=== PATIENT | female | born 1955 | race Caucasian/White ===

== ENCOUNTER → 2016-07-24 | Outpatient (CLI) | payer MEDICARE, OTHER ==
--- NOTE | 2016-07-24 12:48 | XR ---
EXAMINATION TYPE: XR chest 2V DATE OF EXAM: 07/24/2016 11:49 AM COMPARISON: 11/16/2013 HISTORY: Cough and congestion FINDINGS: The lungs are clear and there is no pneumothorax, pleural effusion, or focal pneumonia. IMPRESSION: 1. No acute process.
== END | disposition home or self-care (01) ==
LOC: RADXRMAIN 11:34
PROVIDERS: ATTEND Family Medicine
DX: R07.81 Pleurodynia (principal)
CPT/HCPCS: 71020

== ENCOUNTER 2016-08-14 07:37 | Day surgery (SDC) | payer MEDICARE, OTHER ==
[2016-08-09 14:31] VITALS: BMI 21.0
[~2016-08-14 07:37] MED LIST: LACTATED RINGERS 1,000 ML IV SCH
[2016-08-14 08:52] VITALS: TEMP 97.8
[2016-08-14] MEDS ORDERED: LIDOCAINE 1% 20 ML VIAL (10MG/ML) FOR IV START INTRADERMA ONE (08:52)
[2016-08-14] MEDS ORDERED: LACTATED RINGERS 1,000 ML IV ONE (08:52)
[2016-08-14] MEDS ORDERED: BUPIVACAINE (PF) 0.5% 30 ML VIAL ONE (09:28)
[2016-08-14] MEDS ORDERED: MIDAZOLAM 2 MG/2 ML VIAL ONE (09:28)
[2016-08-14] MEDS ORDERED: fentaNYL (PF) 50 MCG/ML 2 ML AMP ONE (09:28)
--- NOTE | 2016-08-14 10:23 | P.PCN ---
Date of Procedure: 08/14/16 Procedure(s) Performed: PREOPERATIVE DIAGNOSIS: 1-Lumbosacral spondylosis with facet arthropathy without myelopathy. 2- sacroiliit. 3-lumbar degenerative disease post operative Diagnosis: . Same as preoperative diagnoses. PROCEDURES: 1- Right radiofrequency thermocoagulation/ablation of the L5 dorsal ramus. 2- Right multi-site radiofrequency thermocoagulation/ablation of the S1, S2, lateral branchs. The procedure was performed using fluoroscopic guidance during needle placement to assure proper position and maximize safety . ANESTHESIA: LOCAL ANESTHESIA and IV sedation with versed 3 mg and Fentanyle 150 mcg EBL: NONE INDICATION/MEDICAL NECESSITY: History of low back pain secondary to sacroiliitis and lumbosacral arthropathy unresponsive to more conservative treatments. The patient reported more than 50 % relief of pain symptoms following 2 previous diagnostic blocks with Bupivacaine., And patient had radiofrequency ablation of the nerves mentioned above and this provided her with good pain relief for 6 months PROCEDURE DESCRIPTION: The patient was seen and identified in the preoperative area. Risks, benefits, complications, and alternatives were discussed with the patient. The patient agreed to proceed with the procedure and signed the consent. Vital signs were checked before and after the procedure and they remained stable. Patient ambulated to the procedure room and time out was completed. The patient was placed in the prone position on the procedure table and a pillow was placed under the abdomen to reduce lumbar lordosis. The lumbosacral area was prepped and draped in the usual sterile fashion. Critical pause was taken. L5 Dorsal Ramus RF: Using right oblique fluoroscopy, the junction of the transverse process and the superior articular process of the right S1 vertebra, which correspond to the fluoroscopic image of the "eye of the Adolfo dog" was identified. Subsequently, a 10-cm 20 -gauge radiofrequency cannula with a 10-mm active tip was advanced under fluoroscopic guidance until contact was made with periosteum. At this level, the Sensory testing of the L5 dorsal ramus was performed at 50 Hz and 0 to 1 volt with production of concordant pain starting at 0.5 volt. Motor stimulation was done at 2.5 Hz with stimulation of mulitifidus muscle contration . No radicular symptoms or paresthesias were produced during the testing. Subsequently, the L5 dorsal ramus was subjected to a radiofrequency ablation at 80 degree celsius for 90 seconds . after 0.5% Bupivacaine 1 ml injected at each level after negative aspirations . The needle was withdrawn intact the procedure was repeated on the left side using the same technique. S1, and S2 Lateral Branch RF: The lateral margins of the Right S1, S2, foramina were identified using AP fluoroscopy. Under fluoroscopic guidance, three 10-cm 20 -gauge radiofrequency cannula with a 10-mm active tip were inserted at 8-10 mm peripheral to the posterior S1 foramen, at various locations using clock-face coordinates. The center of the clock was registered at the lateral margin of the foramen. The 2: 30, 4:00, and 5:30 oclock positions were used. At this level, the sensory testing of the S1 lateral branch was performed at 50 Hz and 0 to 1 volt at the three levels with production of concordant pain starting at 0.5 volt. Motor stimulation was done at 2.5 Hz. No radicular symptoms or paresthesias were produced during the testing. Subsequently, the S1 lateral branch was subjected to a radiofrequency ablation at a mode of 90 seconds at 80 degrees Celsius at the 3 levels after negative motor and sensory testing and after injecting 0.5 ml of preservative free Bupivacaine 0.5 %. The same procedure was performed at the level of the S2 foramen. I couldn't visualize the S3 foraminal for this reason ,I did not do S3 lateral branches radiofrequency COMPLICATIONS: The patient tolerated the procedure well without any acute complications. DISPOSTION/PLAN: The patient ambulated to the recovery area after the procedure in a stable condition for observation. Patient was reexamined prior to discharge. Patient was observed for 30 minutes in the recovery area and was discharged home, accompanied by an adult, after meeting discharged criteria. Discharge instructions were give to the patient by the staff. Patient was specifically instructed not to drive today and to rest for the rest of the day. The patient will schedule a follow up visit in the clinic in weeks or earlier if needed.
--- NOTE | 2016-08-14 10:24 | P.PN ---
Progress Note - Text This is an addendum to the note dictated earlier= there was no steroid used during the procedure, as patient had a history of glaucoma, and the steroid increase her intraocular pressure
[2016-08-14] MEDS ORDERED: IV FLUID CONTINUATION 650 ML IV ONE (10:29)
[2016-08-14 10:51] VITALS: BP 101/61; PULSE 57; RESP 16
--- NOTE | 2016-08-14 13:32 | FL ---
FLUOROSCOPY 48 seconds of fluoroscopy time were utilized during Pain Injection. 5 images document the procedure.
== END 2016-08-14 11:52 | disposition home or self-care (01) ==
LOC: ORPAIN 07:37
PROVIDERS: ATTEND Specialist
DX: M46.87 Other specified inflammatory spondylopathies, lumbosacral region (principal); M46.1 Sacroiliitis, not elsewhere classified; M47.817 Spondylosis without myelopathy or radiculopathy, lumbosacral region; M51.36 Other intervertebral disc degeneration, lumbar region; Z88.1 Allergy status to other antibiotic agents; I10 Essential (primary) hypertension; J45.909 Unspecified asthma, uncomplicated; E03.9 Hypothyroidism, unspecified
CPT/HCPCS: 64640 ×2; 64635; J2250; J3010

== ENCOUNTER → 2016-09-26 | Day surgery (SDC) | payer MEDICARE, OTHER ==
[2016-09-24 11:37] VITALS: BMI 21.4
[~2016-09-26] MED LIST changes: +LIDOCAINE 1% 20 ML VIAL (10MG/ML) FOR IV START INTRADERMA ONE
[2016-09-26 07:46] VITALS: BP 128/60; PULSE 67; RESP 16; TEMP 97.8
== END ==
LOC: ORPAIN 06:53
PROVIDERS: ATTEND Anesthesiology
DX: M54.5 Low back pain (principal)

== ENCOUNTER → 2016-10-11 | Outpatient (CLI) | payer MEDICARE, OTHER ==
--- NOTE | 2016-10-11 11:28 | XR ---
Sacrum and coccyx HISTORY: Chronic low back pain, sacroiliitis 3 views of the sacrum and coccyx Bone mineralization is maintained. Sacroiliac joints show no erosion, ankylosis, or significant hyper trophic change. Facet arthropathy changes are present at the lumbosacral junction. There is no fractu re or dislocation. IMPRESSION: Facet arthropathy at the lumbosacral junction
--- NOTE | 2016-10-11 12:50 | MR ---
EXAMINATION TYPE: MR lumbar spine wo con DATE OF EXAM: 10/11/2016 12:26 PM COMPARISON: Prior lumbar MRI Sept2012 HISTORY: M47.816 Spondylosis w/o myelopathy or radiculopathy TECHNIQUE: Multiplanar, multisequence images of the lumbar spine were acquired. L1-L2: Normal disc appearance without desiccation. No herniation, protrusion or disc bulging. No ca nal stenosis is present. Foramina are patent bilaterally. L2-L3: Mild posterior broad-based disc bulge causes slight anterior mass effect on the thecal sac. Th ere is mild facet arthropathy. No central stenosis or foraminal encroachment. L3-L4: Normal disc appearance without desiccation. No herniation, protrusion or disc bulging. No ca nal stenosis is present. Foramina are patent bilaterally. L4-L5: Broad-based posterior disc bulge causes slight anterior mass effect on the thecal sac. No sign ificant central stenosis. Mild foraminal encroachment bilaterally due to circumferential extension of disc. L5-S1: Small central posterior disc bulge eccentric proximal S1 nerve roots, anterior thecal sac. No significant central canal stenosis. Some minimal foraminal encroachment due to circumferential extens ion endplate disc complex similar to prior exam Lumbar segments are intact. No paraspinal masses are identified. Conus medullaris has a normal appe arance at T12. Loss of disc height and signal is greatest at L4-5 as on prior exam, there is inferior Schmorl's node present at L4, endplate discogenic marrow signal change is spondylosis. 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 IMPRESSION: Similar findings to prior exam. Degenerative disc disease.
== END | disposition home or self-care (01) ==
LOC: RADMRIMAIN 10:34
PROVIDERS: ATTEND Family Medicine
DX: M51.36 Other intervertebral disc degeneration, lumbar region (principal); M46.97 Unspecified inflammatory spondylopathy, lumbosacral region
CPT/HCPCS: 72148; 72220

== ENCOUNTER → 2016-10-24 | Outpatient (CLI) | payer MEDICARE, OTHER ==
[2016-10-24 13:52] VITALS: BP 151/71; PULSE 68; RESP 18; TEMP 98.7
--- NOTE | 2016-10-24 14:55 | P.PN ---
Progress Note - Text Patient returns for followup for chronic back pain with radiation to right hip. Patient is going to have glaucoma surgery on Saturday and all steroids have been held as a result of her severe glaucoma. Patient continues on [place], Flexeril medications for pain with some relief. Patient denies adverse drug effects from medications. Today, pt denies new-onset weakness, bowel/bladder incontinence, or any other signs or symptoms of cauda equina syndrome. There are no signs of acute intoxication, and no indications of medication diversion or overuse. In addition to above, 13-point review of systems is also negative for chest pain , shortness of breath, changes in vision, changes in hearing, new onset weakness , abdominal pain, diarrhea, extreme fatigue, malaise, fever, skin changes, homicidal or suicidal ideation, or bowel or bladder incontinence. Vital Signs: Reviewed in EMR Gen: WDWN, AAOx3, NAD HEENT: NCAT, EOMI, hearing grossly normal Pulm: resp unlabored Abd: soft, NT, ND Neck: supple, trachea midline ROM in flexion lumbar spine: reduced ROM in extension lumbar spine: reduced Lumbar paravertebral tenderness: ++ R > L Facet loading: negative SI joint tenderness: + R >> L Carlin's test: + R >> L Straight leg raise: neg bilateral Lower extremity: decreased ROM hip flexion/extension due to pain Neuro: CN II-XII grossly intact, muscle strength lower extremities PRESERVED Imaging: Reviewed in EMR Assessment: 1. lumbar DDD 2. lumbar spondylosis without myelopathy 3. sacroiliitis Plan: 1. Explanation: Opioid and psychological risk scores were reviewed. Diagnoses , prognoses, and multiple treatment options including but not limited to physical therapy, interventional therapies, adjuvant medical therapies, narcotic medication therapies, and surgery were discussed with the patient and all questions were answered to the patient's satisfaction. 2. Opioid agreement: Patient has previously signed narcotic agreement, and was orally counseled to not overuse, abuse, divert, or cell medications, and to take them as prescribed by only 1 healthcare provider. The patient was also counseled to take medications as prescribed by only 1 healthcare provider and to store opioid medications in the safe and preferably locked location. Patient was also counseled against driving while using narcotic medications and also to not use alcohol or any illicit or recreational drugs. The patient verbalized understanding that lack of compliance with any of the above and likely result in failure to renew narcotic prescriptions, possible discharge from the clinic, and possible legal ramifications thereafter if indicated. 3. Counseling: The patient was counseled extensively on BODY MASS INDEX, EXERCISE. Specifically, the patient was instructed regarding the importance of weight maintenance and exercise in the context of both chronic pain and overall health. 4. Procedures: none for now 5. Consultations: None 6. Investigations: None 7. Medications: Refill Flexeril 10 mg #90 with two refills, patient has enough [place] for now 8. Disposition: f/u for re-eval in 8 weeks PQRS measures: 1-Patient's medications are documented in the chart. 2-Tobacco use is negative 3-Patient has not had a pneumococcal vaccine. 4-Advanced care planning discussed, patient unable to give. 5-Opioid contract signed with the patient. 6-Pain positive, follow-up visit or procedure scheduled 7-Patient's blood pressure measured and documented, and patient will follow up with the primary care due to hypertension. 8-Patient's weight was measured, and body mass index within the normal limits. 9-Patient WAS NOT identified as an unhealthy alcohol user.
== END | disposition home or self-care (01) ==
LOC: PNWHC3 13:24
PROVIDERS: ATTEND Anesthesiology
DX: M51.36 Other intervertebral disc degeneration, lumbar region (principal); M47.816 Spondylosis without myelopathy or radiculopathy, lumbar region; M46.1 Sacroiliitis, not elsewhere classified
CPT/HCPCS: 99211

== ENCOUNTER → 2016-12-25 | Outpatient (CLI) | payer MEDICARE, OTHER ==
[2016-12-25 14:55] VITALS: BP 128/68; PULSE 86; RESP 16; TEMP 97.8
--- NOTE | 2016-12-25 15:26 | P.PN ---
Subjective This is a follow-up visit for this 62 years old female with a chronic history of severe low back pain, patient diagnosed with lumbar degenerative disc disease of lumbar bulging disc disease, lumbar spondylosis, and sacroiliitis, patient had glaucoma, and it was recommended by her womens health nurse practitioner not to get any steroid, it caused this could increase her intraocular pressure , currently patient on [place] 5/325 every 6 hours when necessary, Flexeril 10 mg 3 times a day, she denies any side effect of the medication she denies any excessive drowsiness or sleepiness Objective - Vital Signs Vital signs: Vital Signs Temp 97.8 F 12/25/16 14:44 Pulse 86 12/25/16 14:44 Resp 16 12/25/16 14:44 BP 128/68 12/25/16 14:44 Pulse Ox 99 12/25/16 14:44 Intake & Output 12/24/16 12/25/16 12/25/16 18:59 06:59 18:59 Weight 54.885 kg - Exam Physical Examinations : 1-Constitutiona : Cooperative , not in acute distress . 2-HEENT : nech ; supple , no Lymphadenopathy , normal thyroid size . eyes : no ptosis , no icterus, no photophobia . ENT : normal of hearing , normal oropharynx , no Thrush . 3- Respiratory : Chest clear to auscultations Bilaterally , no wheezing , no Rhonchi . 4- Cardiovascular : regular rate and rhythem , S1 , S2 , no S3 , no S4. 5- Gastrointestinal : abdomen soft no tenderness , bowel sounds positive all four quadrents , no organomegally . 6- Genitourinary : Defferred . 7- neurologic : Cranial nerve II to XII intact , no focal neurological deffecit . 8-psychatric : alert , oriented X 3 , appropriate affect , intact judgment and insight . 9-Lymphatic : no Lymphadenopathy . 10- musculoskeltal : , Lumber spine = normal moter stegnth lower extremities ,thigh and legs .5/5 deep tendon reflexes : normal Knee Jerk , normal ankle Jerk . positive lumber facet Loading Test strait leg raising test positive at 30 degree , RT ,LT , Fabere test positive RT and positive LT . Sever tenderness over the Sacroiliac joint on the Right , and Left side Assessment and Plan Plan: Assessment and plan = - Chronic low back pain secondary to lumbar degenerative disc disease , lumbar spondylosis with facet arthropathy without myelopathy , sacroiliitis - diagnoses, prognosis, and treatment options including but not limited to physical therapy, surgical interventions, interventional therapies and medication management including narcotics and adjuvant medication were discussed with the patient and all questions answered to the patient's satisfaction. Patient had severe form of glaucoma and it was recommended by her womens health nurse practitioner not to get any steroid, he shouldn't will not be scheduled for any pain management interventions, to avoid any steroid, discussed with the patient the option of surgical interventions, patient wishes to discuss this option with the [facility] [place] -medication refile =1-[place] 5/325-6 hours dispense 60 2-Flexeril 10 mg 3 times a day dispense 90 with 2 refill Time with Patient: Less than 30
== END ==
LOC: PNWHC3 14:02
PROVIDERS: ATTEND Specialist
DX: M51.36 Other intervertebral disc degeneration, lumbar region (principal); M47.816 Spondylosis without myelopathy or radiculopathy, lumbar region; M46.86 Other specified inflammatory spondylopathies, lumbar region; G89.29 Other chronic pain; Z79.891 Long term (current) use of opiate analgesic
CPT/HCPCS: 99211

== ENCOUNTER → 2017-03-19 | Outpatient (CLI) | payer MEDICARE, OTHER ==
[2017-03-19 11:29] VITALS: BP 129/82; PULSE 76; RESP 16; TEMP 97.5
--- NOTE | 2017-03-19 14:24 | P.PN ---
Progress Note - Text Patient returns for followup for chronic back pain with radiation to right hip. Patient continues on [place], Flexeril medications for pain with some relief and cannot have steroids due to her glaucoma. Patient denies adverse drug effects from medications. Today, pt denies new-onset weakness, bowel/bladder incontinence, or any other signs or symptoms of cauda equina syndrome. There are no signs of acute intoxication, and no indications of medication diversion or overuse. In addition to above, 13-point review of systems is also negative for chest pain , shortness of breath, changes in vision, changes in hearing, new onset weakness , abdominal pain, diarrhea, extreme fatigue, malaise, fever, skin changes, homicidal or suicidal ideation, or bowel or bladder incontinence. Vital Signs: Reviewed in EMR Gen: WDWN, AAOx3, NAD HEENT: NCAT, EOMI, hearing grossly normal Pulm: resp unlabored Neck: supple, trachea midline ROM in flexion lumbar spine: reduced ROM in extension lumbar spine: reduced Lumbar paravertebral tenderness: + bilateral Facet loading: negative SI joint tenderness: +R Carlin's test: +R Straight leg raise: neg bilateral Lower extremity: decreased ROM hip flexion/extension due to pain Neuro: CN II-XII grossly intact, muscle strength lower extremities PRESERVED Imaging: Reviewed in EMR Assessment: 1. lumbar DDD 2. lumbar spondylosis without myelopathy 3. sacroiliitis Plan: 1. Explanation: Opioid and psychological risk scores were reviewed. Diagnoses , prognoses, and multiple treatment options including but not limited to physical therapy, interventional therapies, adjuvant medical therapies, narcotic medication therapies, and surgery were discussed with the patient and all questions were answered to the patient's satisfaction. 2. Opioid agreement: Patient has previously signed narcotic agreement, and was orally counseled to not overuse, abuse, divert, or cell medications, and to take them as prescribed by only 1 healthcare provider. The patient was also counseled to take medications as prescribed by only 1 healthcare provider and to store opioid medications in the safe and preferably locked location. Patient was also counseled against driving while using narcotic medications and also to not use alcohol or any illicit or recreational drugs. The patient verbalized understanding that lack of compliance with any of the above and likely result in failure to renew narcotic prescriptions, possible discharge from the clinic, and possible legal ramifications thereafter if indicated. 3. Counseling: The patient was counseled extensively on BODY MASS INDEX, EXERCISE. Specifically, the patient was instructed regarding the importance of weight maintenance and exercise in the context of both chronic pain and overall health. 4. Procedures: none for now due to steroid issues and glaucoma 5. Consultations: None 6. Investigations: None 7. Medications: [place] 10/325 #60 with no refill (two months' supply for this patient) 8. Disposition: f/u for re-eval in 12 weeks PQRS measures: 1-Patient's medications are documented in the chart. 2-Tobacco use is negative 3-Patient has not had a pneumococcal vaccine. 4-Advanced care planning discussed, patient unable to give. 5-Opioid contract signed with the patient. 6-Pain positive, follow-up visit or procedure scheduled 7-Patient's blood pressure measured and documented, and patient will follow up with the primary care due to hypertension. 8-Patient's weight was measured, and body mass index within the normal limits. 9-Patient WAS NOT identified as an unhealthy alcohol user.
== END | disposition home or self-care (01) ==
LOC: PNWHC3 11:00
PROVIDERS: ATTEND Anesthesiology
DX: M51.36 Other intervertebral disc degeneration, lumbar region (principal); M47.816 Spondylosis without myelopathy or radiculopathy, lumbar region; M46.1 Sacroiliitis, not elsewhere classified; Z79.899 Other long term (current) drug therapy
CPT/HCPCS: 99211

== ENCOUNTER → 2017-04-12 | Outpatient (CLI) | payer MEDICARE, OTHER ==
--- NOTE | 2017-04-12 15:44 | US ---
EXAMINATION TYPE: US thyroid st tissue head/neck DATE OF EXAM: 04/12/2017 COMPARISON: NONE CLINICAL HISTORY: E04.0 Nontoxic Goiter. Goiter, pt states she is on thyroid meds GLAND SIZE: Right Lobe: 3.9 x 1.3 x 1.5 cm Overall Parenchyma: heterogenous Left Lobe: 4.3 x 0.8 x 1.0 cm Overall Parenchyma: heterogeneous Isthmus Thickness: 0.2 cm NODULES RIGHT: # of nodules measured on right: 1 1. 0.6 X 0.2 x 0.5 cm hypoechoic solid nodule at the mid pole with well-defined margins; This nodu le is wider than tall and shows intranodular vascularity. Prior size: No prior Multiple sub-centimeter nodules on right with largest nodule measured LEFT: Two sub-centimeter nodules, largest 0.3 cm in size Bilateral neck scanned, no evidence of lymphadenopathy. Small, sub-centimeter nodules bilaterally. IMPRESSION: 1. Subcentimeter nodules bilateral thyroid lobes
== END | disposition home or self-care (01) ==
LOC: RADUSWWP 14:32
PROVIDERS: ATTEND Family Medicine
DX: E04.2 Nontoxic multinodular goiter (principal)
CPT/HCPCS: 76536

== ENCOUNTER 2017-07-05 08:04 | Day surgery (SDC) | payer MEDICARE, OTHER ==
[2017-07-04 09:58] VITALS: BMI 22.8
[~2017-07-05 08:04] MED LIST changes: -LIDOCAINE 1% 20 ML VIAL (10MG/ML) FOR IV START INTRADERMA ONE; +LIDOCAINE 1% 20 ML VIAL (10MG/ML) FOR IV START INTRADERMA PRN
[2017-07-05 08:39] VITALS: RESP 16; TEMP 97.5
[2017-07-05] MEDS ORDERED: PROPOFOL 10 MG/ML 20 ML VIAL IV ONE (09:20)
[2017-07-05] MEDS ORDERED: GLYCOPYRROLATE 0.2 MG/ML 2 ML VIAL ONE (09:20)
[2017-07-05] MEDS ORDERED: LIDOCAINE 1% INJ 10MG/ML (20 ML MDV) ONE (09:20)
--- NOTE | 2017-07-05 09:35 | P.GSHP ---
History of Present Illness H&P Date: 07/05/17 Chief Complaint: GERD Patient with history of chronic reflux. Recently she has had some mild complaints of dysphagia as well. He has chronic hoarseness of her voice. Last upper endoscopy 2-1/2 years ago. Past Medical History Past Medical History: Asthma, Eye Disorder, GERD/Reflux, Hypertension, Musculoskeletal Disorder, Osteoarthritis (OA), Thyroid Disorder Additional Past Medical History / Comment(s): chronic back & neck pain-fusion. Glaucoma/ Blind L Eye History of Any Multi-Drug Resistant Organisms: None Reported Past Surgical History: Cholecystectomy, Hysterectomy, Orthopedic Surgery Additional Past Surgical History / Comment(s): neck fusion. jaw surg. back injections. trigger fingers. implant to R eye; numerous eye surgeries Past Anesthesia/Blood Transfusion Reactions: No Reported Reaction Smoking Status: Never smoker - Past Family History Mother Family Medical History: Cancer Brother(s) Family Medical History: Cancer Sister(s) Family Medical History: Cancer Medications and Allergies Home Medications Medication Instructions Recorded Confirmed Type Atenolol [Tenormin] 50 mg PO QAM 11/20/13 07/04/17 History Levothyroxine Sodium [Synthroid] 25 mcg PO QAM 11/20/13 07/04/17 History Omeprazole 40 mg PO DAILY 11/20/13 07/04/17 History Albuterol Sulfate [Proair Hfa] 2 puff INHALATION Q6HR PRN 11/25/13 07/04/17 History Ibuprofen [Motrin] 800 mg PO TID PRN 07/25/15 07/04/17 History ALPRAZolam [Xanax] 0.25 mg PO HS PRN 08/15/15 07/04/17 History Cyclobenzaprine [Flexeril] 10 mg PO Q8H PRN #90 tab 12/25/16 07/04/17 Rx Hydrocodone/Acetaminophen [[place] 5 mg PO BID PRN #60 tablet 03/19/17 07/04/17 Rx 5-325] Difluprednate [Durezol] 1 drop LEFT EYE DAILY 07/04/17 07/04/17 History Eye Drop RIGHT EYE 07/04/17 History Allergies Allergy/AdvReac Type Severity Reaction Status Date / Time bacitracin AdvReac blisters Verified 07/05/17 08:44 Surgical - Exam Vital Signs Temp Pulse Resp BP Pulse Ox 97.5 F L 69 16 127/60 99 07/05/17 08:38 07/05/17 08:38 07/05/17 08:38 07/05/17 08:38 07/05/17 08:38 Physical exam: General: Well-developed, well-nourished HEENT: Normocephalic, sclerae nonicteric Abdomen: Nontender, nondistended Extremities: No edema Neuro: Alert and oriented Assessment and Plan (1) GERD (gastroesophageal reflux disease) Narrative/Plan: Will proceed with upper endoscopy. Current Visit: Yes Status: Acute Code(s): K21.9 - GASTRO-ESOPHAGEAL REFLUX DISEASE WITHOUT ESOPHAGITIS SNOMED Code(s): 991530537
--- NOTE | 2017-07-05 09:43 | P.PCN ---
Date of Procedure: 07/05/17 Procedure(s) Performed: Preoperative Dx: GERD, dysphagia Postoperative Dx: Mild gastritis, small gastric polyp Procedure: EGD with Bx Anesthesia: Sedation Endoscopist: Dr. Rachel Specimens: antrum, gastric polyp Endoscopic Procedure: The patient was on the endoscopy table in the left decubitus position. The Olympus gastroscope was inserted into the oropharynx and passed under direct visualization to the region of the third portion of the duodenum. From that point the scope was slowly withdrawn inspecting all surfaces carefully. There were no neoplastic inflammatory or polypoid lesions throughout the duodenum. The pylorus was widely patent. The stomach was carefully inspected. There was mild gastritis present. A biopsy of the antrum took place to rule out H. pylori. In the body of the stomach there was a small polyp that was removed using the biopsy forceps. Retroflexion revealed a normal hiatus. The esophagus was then carefully examined. There were no neoplastic inflammatory or polypoid lesions throughout the visualized esophagus. The patient was then taken to the recovery room in stable condition per anesthesia guidelines. Recommendations: Await biopsy results.
[2017-07-05 10:23] VITALS: BP 135/67; PULSE 73
== END 2017-07-05 10:30 | disposition home or self-care (01) ==
LOC: ORWHC2ENDO 08:04
PROVIDERS: ATTEND Surgery
DX: K21.9 Gastro-esophageal reflux disease without esophagitis (principal); K31.7 Polyp of stomach and duodenum; K29.70 Gastritis, unspecified, without bleeding; I10 Essential (primary) hypertension; J45.909 Unspecified asthma, uncomplicated; E07.9 Disorder of thyroid, unspecified; M19.90 Unspecified osteoarthritis, unspecified site; Z88.1 Allergy status to other antibiotic agents; Z79.899 Other long term (current) drug therapy; Z98.1 Arthrodesis status; Z80.9 Family history of malignant neoplasm, unspecified
CPT/HCPCS: 43239; 88305; 88342; J2001; J2704

== ENCOUNTER → 2017-12-09 | Outpatient (CLI) | payer MEDICARE, OTHER ==
[2017-12-09 13:29] VITALS: BP 161/76; PULSE 68; RESP 16; TEMP 98
--- NOTE | 2017-12-09 13:58 | P.PAINPG ---
Subjective Progress Note Date: 12/09/17 Very pleasant 62-year-old woman with a long-standing history of back pain as well as sacroiliac issues. Today she complains of significant pain in her back which radiates down her right leg. She also has a recent stress fracture her right foot which is healing. She reports that previous sacroiliac injections of radio frequency ablation were very helpful for her. It is been greater than a year since she had these done. She currently takes Flexeril to help with her spasms as well as [place]. She denies any side effects from these medications. She states she tolerates them well. She is requesting refills on her medications and wonders about having a repeat injection in her right sacroiliac joint. Objective - Vital Signs Vital signs: Vital Signs Temp 98 F 12/09/17 13:21 Pulse 68 12/09/17 13:21 Resp 16 12/09/17 13:21 BP 161/76 12/09/17 13:21 Pulse Ox 97 12/09/17 13:21 Intake & Output 12/08/17 12/09/17 12/09/17 18:59 06:59 18:59 Weight 54.431 kg - Exam Gen: WDWN, AAOx3, NAD HEENT: NCAT, EOMI, hearing grossly normal Pulm: resp unlabored Abd: soft, NT, ND ROM in flexion lumbar spine: Normal ROM in extension lumbar spine: Normal Lumbar paravertebral tenderness: Tender to palpation in the lumbar spine. Worse on the right side. Facet loading: Minimally positive on the right, negative on the left SI joint tenderness: Very tender on the right sacroiliac joint. Carlin's test: Positive on the right Straight leg raise: Positive on the right at approximately 80 for lumbar radicular symptoms Neuro: muscle strength lower extremities symmetric and normal bilaterally. Somewhat difficult to assess right foot dorsiflexion as the patient has a currently healing stress fracture. She has no sensory deficits in the lower extremities. Assessment and Plan (1) Sacroiliitis Current Visit: No Status: Chronic Code(s): M46.1 - SACROILIITIS, NOT ELSEWHERE CLASSIFIED SNOMED Code(s): 91796403 Plan: We will schedule the patient for a right sacroiliac joint injection. I discussed with her the risks and benefits of this procedure. She did have some concerns as she reports that previously, her insurance was not paying for radiofrequency ablation of this joint. We will address this in the future. Hopefully she will receive benefit from a diagnostic block. I discussed with her the risks and benefits of opiate therapy. She understands these and agrees to comply with our therapy. She will undergo a urine drug screen today. I have reviewed her mass report and it reveals no unexpected results. We will refill her [place] as well as her Flexeril today. I have cautioned her on the risks of taking a benzodiazepine with her opiates. I have encouraged her to discontinue this practice. PQRS Measure Charge Sheet Measure #130: Documentation of Current Meds in Medical Chart: Patient's medications documented in chart Measure #226: Tobacco Use: Screen & Cessation Intervention: Pt not a tobacco user Measure #111: Pneumonia Vaccination: Pneumococcal vaccine NOT administered or previously given Measure #412: Opioid Treatment Agreement: Documented signed opioid trtmnt agreemnt min once during opioid trtmnt Measure #408: Opioid Therapy Follow-up Evaluation: Patient had f/u eval minimum every 3 months during opioid therapy Measure #317: Preventitive Care & Scrn High Bld Press & F/U: Pre-hypertensive or hypertensive BP documented, pt will f/u with PCP Measure #128: Body Mass Index (BMI) Screening & Follow-up: BMI documented within normal parameters Measure #131: Pain Assessment & Follow-up: Pain positive & plan documented Measure #431: Unhealthy Alcohol Use Preventative Care & Scrn: Patient not identified as an unhealthy alcohol user PQRS Narrative: Smoking Status Never smoker Do You Want the Pneumonia Vaccine Up to Date Vaccine AT THIS TIME? Narcotic Agreement Date Signed 12/09/17 Blood Pressure 161/76 Pain Intensity [Right Lower 4 Back] Scale Used Numeric (1 - 10) Hx Alcohol Use (MH) Yes: OCC. Home Medications: Ambulatory Orders Atenolol [Tenormin] 50 mg PO QAM 11/20/13 Levothyroxine Sodium [Synthroid] 25 mcg PO QAM 11/20/13 Omeprazole 40 mg PO DAILY 11/20/13 Albuterol Sulfate [Proair Hfa] 2 puff INHALATION Q6HR PRN 11/25/13 Ibuprofen [Motrin] 800 mg PO TID PRN 07/25/15 Difluprednate [Durezol] 1 drop LEFT EYE DAILY 07/04/17 Eye Drop RIGHT EYE 07/04/17 Cyclobenzaprine [Flexeril] 10 mg PO Q8H PRN #90 tab 12/09/17 Hydrocodone/Acetaminophen [[place] 5-325] 5 mg PO BID PRN #60 tablet 12/09/17 Controlled Substance Measures - Controlled Substance Measures Is patient prescribed a controlled substance at discharge?: No If prescribed controlled substance>3 days was MAPS reviewed?: No When asked, does pt state using other controlled substances?: No
== END | disposition home or self-care (01) ==
LOC: PNWHC3 12:43
PROVIDERS: ATTEND Pain Medicine Pain Medicine
DX: M46.1 Sacroiliitis, not elsewhere classified (principal); M84.374D Stress fracture, right foot, subsequent encounter for fracture with routine healing; Z79.891 Long term (current) use of opiate analgesic; Z79.52 Long term (current) use of systemic steroids; Z79.1 Long term (current) use of non-steroidal anti-inflammatories (NSAID); Z79.899 Other long term (current) drug therapy
CPT/HCPCS: G0480; G0463; 80307; 80346; 80356; 80364; 99211

== ENCOUNTER 2018-01-01 09:44 | Day surgery (SDC) | payer MEDICARE, OTHER ==
[2017-12-27 09:08] VITALS: BMI 21.9
[~2018-01-01 09:44] MED LIST changes: -LIDOCAINE 1% 20 ML VIAL (10MG/ML) FOR IV START INTRADERMA PRN
[2018-01-01 10:29] VITALS: TEMP 96.9
[2018-01-01] MEDS ORDERED: LIDOCAINE 1% 20 ML VIAL (10MG/ML) FOR IV START INTRADERMA ONE (10:33)
--- NOTE | 2018-01-01 11:59 | P.PCN ---
Date of Procedure: 01/01/18 Surgeon: Matthew Fagan Pathology: none sent Condition: stable Disposition: PACU Description of Procedure: PREOPERATIVE DIAGNOSIS: 1-Bilateral sacroiliitis. 2 Lumbar DDD POSTOPERATIVE DIAGNOSIS:. 1-Bilateral sacroiliitis. 2 Lumbar DDD PROCEDURES: Bilateral Sacroiliac joint steroid injection with fluoroscopic guidance ANESTHESIA: Local with 1% lidocaine; conscious sedation EBL: Minimal. PROCEDURE INDICATIONS: This patient with a history of low back pain secondary to sacroiliitis and lumbar DDD unresponsive to conservative management. No use of blood thinners. PROCEDURE DESCRIPTION: The patient was seen and identified in the preoperative area. Risks, benefits, complications, and alternatives were discussed with the patient (including but not limited to incomplete pain relief, bleeding, infection, nerve damage, and allergies to medications), the patient agreed to proceed with the procedure and signed the consent after all questions were answered. Patient was taken to the OR and time out was completed to verify proper patient , position, laterality of pain, and allergies. Pt was placed in the prone position and a pillow was placed under the abdomen to reduce lumbar lordosis. The lumbosacral area was prepped and draped in the usual sterile fashion. Critical pause was taken. Vital signs were closely monitored during the procedure. The fluoroscopic camera was placed in contralateral oblique view and right sacroiliiac joint lower pole was identified. After local infiltration with 1% lidocaine 2 ml, Subsequently, a 22-gauge 3.5 inch spinal needle was introduced into the posteroinferior aspect of the right sacroiliac joint under direct fluoroscopic visualization. Subsequently, 3 ml of a solution of a total of 6 ml solution containing total 5 mL of 0.5% preservative-free bupivicaine mixed with 40 mg of Kenalog was injected after negative aspiration for CSF, blood, and air and negative for paresthesia. The entire procedure was repeated on the left side as above. Needle was withdrawn intact. Skin was cleansed, and bandages were applied. COMPLICATIONS: None. COMMENTS: DISPOSITION / PLANS: The patient was placed in a supine position and transferred to the recovery area in a stable condition for observation and was discharged from the recovery room after meeting discharge criteria. Home discharge instructions given to the patient by the staff. The patient was reexamined prior to discharge and there were no issues. The patient will schedule a repeat procedure in 2-4 weeks.
--- NOTE | 2018-01-01 12:09 | FL ---
Fluoroscopy HISTORY: Pain 4 seconds fluoroscopy time supplied to the referring clinician. 4 intraoperative C-arm images docume nt the procedure. See dictated report from anesthesia.
[2018-01-01] MEDS ORDERED: IV FLUID CONTINUATION 1,000 ML IV ONE (12:12)
[2018-01-01 13:04] VITALS: BP 117/88; PULSE 70; RESP 18
== END 2018-01-01 13:20 | disposition home or self-care (01) ==
LOC: ORPAIN 09:44
PROVIDERS: ATTEND Anesthesiology
DX: M46.1 Sacroiliitis, not elsewhere classified (principal); M51.36 Other intervertebral disc degeneration, lumbar region; Z79.891 Long term (current) use of opiate analgesic; Z79.899 Other long term (current) drug therapy; Z88.1 Allergy status to other antibiotic agents
CPT/HCPCS: J2250; J3301; J3010; Q9966; G0260; 27096

== ENCOUNTER 2018-01-21 06:54 | Day surgery (SDC) | payer MEDICARE, OTHER ==
[2018-01-17 12:03] VITALS: BMI 21.9
[2018-01-21 07:52] VITALS: RESP 18; TEMP 97.7
[2018-01-21] MEDS ORDERED: LACTATED RINGERS 1,000 ML IV SCH (08:00)
[2018-01-21] MEDS ORDERED: LIDOCAINE 1% 20 ML VIAL (10MG/ML) FOR IV START INTRADERMA ONE (08:01)
--- NOTE | 2018-01-21 08:06 | P.PCN ---
Date of Procedure: 01/21/18 Description of Procedure: PREOPERATIVE DIAGNOSIS: 1-Bilateral sacroiliitis. 2. Lumbosacral spondylosis POSTOPERATIVE DIAGNOSIS:. 1-Bilateral sacroiliitis. 2. Lumbosacral spondylosis PROCEDURES: Bilateral Sacroiliac joint steroid injection with fluoroscopy ANESTHESIA: Conscious sedation. EBL:Minimal. PROCEDURE INDICATIONS: This patient with a history of low back pain secondary to bilateral sacroiliitis and lumbosacral arthropathy unresponsive to conservative management. She presents for injection #2 today. PROCEDURE DESCRIPTION: The patient was seen and identified in the preoperative area. Risks, benefits, complications, and alternatives were discussed with the patient, including but not limited to bleeding, infection, nerve damage, incomplete pain relief, and allergic reaction to medications. The patient agreed to proceed with the procedure and signed the consent after all questions were answered. IV was started, and vital signs were stable. Patient was taken to the OR and time out was completed to verify proper patient , position, laterality of pain, and allergies. The patient was placed in the prone position on procedure table and a pillow was placed under the abdomen to reduce lumbar lordosis. The lumbosacral area was prepped and draped in the usual sterile fashion. Critical pause was taken. Vital signs were closely monitored during the procedure. The fluoroscopic camera was placed in contralateral oblique view and right sacroiliiac joint lower pole was identified. Subsequently, a 25-gauge 3.5 inch spinal needle was introduced into the posteroinferior aspect of the Sacroiliac joint under direct fluoroscopic visualization. After negative aspiration, 0.5 cc of Omnipaque was injected and demonstrated a good arthrogram. Subsequently, 3 ml of a solution containing total 2 mL of 0.5% preservative-free bupivicaine mixed with 40 mg of Kenalog was injected after negative aspiration for CSF, blood, and air and negative for paresthesia. The entire procedure was repeated on the left side as above and an additional 3 ml (2 ml 0.5% preservative-free bupivacaine and 40 mg of Kenalog) was injected. Needle was withdrawn intact. Skin was cleansed, and bandages were applied. COMPLICATIONS: None. COMMENTS: DISPOSITION / PLANS: The patient was placed in a supine position and transferred to the recovery area in a stable condition for observation and was discharged from the recovery room after meeting discharge criteria. Home discharge instructions given to the patient by the staff. The patient was reexamined prior to discharge. The patient will schedule a SI joint RFA if she gets relief from this procedure.
[2018-01-21 08:57] VITALS: BP 151/76; PULSE 60
[2018-01-21] MEDS ORDERED: IV FLUID CONTINUATION 1,000 ML IV ONE (08:57)
--- NOTE | 2018-01-21 09:19 | FL ---
Fluoroscopy HISTORY: Pain 5 seconds fluoroscopy time supplied to the referring clinician. 2 intraoperative C-arm images docume nt the procedure. See dictated report from anesthesia.
== END 2018-01-21 09:00 | disposition home or self-care (01) ==
LOC: ORPAIN 06:54
PROVIDERS: ATTEND Anesthesiology
DX: M46.1 Sacroiliitis, not elsewhere classified (principal); M47.816 Spondylosis without myelopathy or radiculopathy, lumbar region; Z88.1 Allergy status to other antibiotic agents
CPT/HCPCS: J2250; J3301; J3010; G0260

== ENCOUNTER 2018-02-10 05:51 | Day surgery (SDC) | payer MEDICARE, OTHER ==
[2018-02-05 08:39] VITALS: BMI 21.9
[2018-02-10] MEDS ORDERED: LIDOCAINE 1% 20 ML VIAL (10MG/ML) FOR IV START INTRADERMA ONE (06:53)
[2018-02-10] MEDS ORDERED: LACTATED RINGERS 1,000 ML IV ONE (06:53)
[2018-02-10 07:04] VITALS: RESP 18; TEMP 97.5
--- NOTE | 2018-02-10 07:56 | P.PCN ---
Date of Procedure: 02/10/18 Surgeon: Leila Gates Description of Procedure: PREOPERATIVE DIAGNOSIS: 1-Lumbosacral arthropathy. 2-Right sacroiliitis. POSTOPERATIVE DIAGNOSIS: 1-Lumbosacral arthropathy. 2-LRight sacroiliitis. PROCEDURES: 1- Right radiofrequency thermocoagulation/ablation of the L5 dorsal ramus. 2- Right multi-site radiofrequency thermocoagulation/ablation of the S1, S2, and S3 lateral branchs. The procedure was performed using fluoroscopic guidance during needle placement to assure proper position and maximize safety. PROVIDER: ULISES QUIROZ MD ANESTHESIA: LOCAL ANESTHESIA ONLY EBL: NONE INDICATION/MEDICAL NECESSITY: History of low back pain secondary to left??right??bilateral?? sacroiliitis and lumbosacral arthropathy unresponsive to more conservative treatments. This is the first??second?? diagnostic block. The patient reported more than 50% relief of pain symptoms following 2 previous diagnostic blocks with Bupivacaine. PROCEDURE DESCRIPTION: The patient was seen and identified in the preoperative area. Risks, benefits, complications, and alternatives were discussed with the patient. The patient agreed to proceed with the procedure and signed the consent. Vital signs were checked before and after the procedure and they remained stable. Patient ambulated to the procedure room and time out was completed. The patient was placed in the prone position on the procedure table and a pillow was placed under the abdomen to reduce lumbar lordosis. The lumbosacral area was prepped and draped in the usual sterile fashion. Critical pause was taken. L5 Dorsal Ramus RF: Using right oblique fluoroscopy, the junction of the transverse process and the superior articular process of the right S1 vertebra, which correspond to the fluoroscopic image of the "eye of the Adolfo dog" was identified. Subsequently, a 10-cm 18-gauge radiofrequency cannula with a 10-mm active tip was advanced under fluoroscopic guidance until contact was made with periosteum. At this level, the Sensory testing of the L5 dorsal ramus was performed at 50 Hz and 0 to 1 volt with production of concordant pain starting at 0.5 volt. Motor stimulation was done at 2 Hz with stimulation of mulitifidus muscle contration at 1.5 volts. No radicular symptoms or paresthesias were produced during the testing. Subsequently, the L5 dorsal ramus was subjected to a radiofrequency ablation at a mode of 90 seconds at 80 degrees Celsius after negative motor and sensory testing and after injecting 0.5 ml of preservative free Ropivacaine 0.5%. The needle was withdrawn intact the procedure was repeated on the left side using the same technique. S1, S3, and S3 Lateral Branch RF: The lateral margins of the Right S1, S2, and S3 foramina were identified using AP fluoroscopy. Under fluoroscopic guidance, three 10-cm 18gauge radiofrequency cannula with a 10-mm active tip were inserted at 8-10 mm peripheral to the posterior S1 foramen, at various locations using clock-face coordinates. The center of the clock was registered at the lateral margin of the foramen. The 2: 30, 4:00, and 5:30 oclock positions were used. At this level, the sensory testing of the S1 lateral branch was performed at 50 Hz and 0 to 1 volt at the three levels with production of concordant pain starting at 0.5 volt. Motor stimulation was done at 2 Hz. No radicular symptoms or paresthesias were produced during the testing. Subsequently, the S1 lateral branch was subjected to a radiofrequency ablation at a mode of 90 seconds at 80 degrees Celsius at the 3 levels after negative motor and sensory testing and after injecting 0.5 ml of preservative free Bupivacaine 0.5??%. The same procedure was performed at the level of the S2 foramen. For the S3 foramen, only the 2:30 and 4:00 oclock positions were used. Sensory and motor testing followed by radiofrequency ablation were performed as described for the S1 and S2 foramina. The same procedure was repeated on the left side using the following locations: The 9:30, 8:00, and 6:30 oclock positions were used for the S1 and S2 foramina and the 9:30 and 8:00 oclock positions were used for the S3 foramen. The needle was withdrawn intact after each injection. A total of 40 mg of Depo- Medrol was given during this procedure. COMPLICATIONS: The patient tolerated the procedure well without any acute complications. DISPOSTION/PLAN: The patient ambulated to the recovery area after the procedure in a stable condition for observation. Patient was reexamined prior to discharge. Patient was observed for 15?? minutes in the recovery area and was discharged home, accompanied by an adult, after meeting discharged criteria. Discharge instructions were give to the patient by the staff. Patient was specifically instructed not to drive today and to rest for the rest of the day.
[2018-02-10] MEDS ORDERED: IV FLUID CONTINUATION 1,000 ML IV ONE (08:05)
[2018-02-10 08:21] VITALS: BP 127/70; PULSE 64
--- NOTE | 2018-02-10 08:42 | FL ---
EXAMINATION TYPE: FL guided pain mgmt statistic DATE OF EXAM: 02/10/2018 HISTORY: Flouroscopy time 16 seconds of fluoroscopy provided. IMPRESSION: 1. Fluoroscopy time.
--- NOTE | 2018-02-12 08:49 | CDI ---
Date: 02/12/18 CDS/Casting Machine Operator Helper Name: Susy Mathur Phone: If any questions, call Mavis Shepherd Cabin Supervisor at [phone] Patient Name: Telma Toledo Admit Date: 02/10/18 Discharge Date: 02/10/18 ATTENTION: The [facility] Coding Staff appreciate your assistance in clarifying documentation. Please respond to the clarification below the line at the bottom and electronically sign. The [facility] Coding staff will review the response and follow-up if needed. Please note: Queries are made part of the Legal Health Record. If you have any questions, please contact the Cabin Supervisor. Dear Dr. Gates, Please provide clarification as to the type of sedation provided. Procedure note states Local Anesthesia Only, yet on the Pain Procedure Record, Versed and Fentanyl were given. Please clarify if Moderate Sedation or loal anesthesia was used. Thank you for your kind consideration. __Anesthesia:Local anesthesia with Lidocaine 1% and Moderate conscious sedation with IV fentanyl and versed. MTDD
== END 2018-02-10 08:50 | disposition home or self-care (01) ==
LOC: ORPAIN 05:51
PROVIDERS: ATTEND Anesthesiology
DX: M46.97 Unspecified inflammatory spondylopathy, lumbosacral region (principal); M47.816 Spondylosis without myelopathy or radiculopathy, lumbar region; M46.1 Sacroiliitis, not elsewhere classified; I10 Essential (primary) hypertension; Z88.1 Allergy status to other antibiotic agents
CPT/HCPCS: 64640 ×3; 64635; J2250; J1030; J3010; 64636; 99152; 99153

== ENCOUNTER → 2018-03-12 | Outpatient (CLI) | payer MEDICARE, OTHER ==
[2018-03-12 13:52] VITALS: BP 158/82; PULSE 75; RESP 16
--- NOTE | 2018-03-18 14:10 | P.PN ---
Progress Note - Text Progress Note Date: 03/12/18 Patient returns for followup for chronic back pain with radiation to right hip. Patient was recently had a right sacroiliac radio frequency ablation. Patient continues on Proctor, Flexeril medications for pain with some relief. Patient denies adverse drug effects from medications. Today, pt denies new- onset weakness, bowel/bladder incontinence, or any other signs or symptoms of cauda equina syndrome. There are no signs of acute intoxication, and no indications of medication diversion or overuse. In addition to above, 13-point review of systems is also negative for chest pain , shortness of breath, changes in vision, changes in hearing, new onset weakness , abdominal pain, diarrhea, extreme fatigue, malaise, fever, skin changes, homicidal or suicidal ideation, or bowel or bladder incontinence. Vital Signs: Reviewed in EMR Gen: WDWN, AAOx3, NAD HEENT: NCAT, EOMI, hearing grossly normal Pulm: resp unlabored Abd: soft, NT, ND Neck: supple, trachea midline ROM in flexion lumbar spine: reduced ROM in extension lumbar spine: reduced Lumbar paravertebral tenderness: ++ R > L Facet loading: negative SI joint tenderness: + R >> L Carlin's test: + R >> L Straight leg raise: neg bilateral Lower extremity: decreased ROM hip flexion/extension due to pain Neuro: CN II-XII grossly intact, muscle strength lower extremities PRESERVED Imaging: Reviewed in EMR Assessment: 1. lumbar DDD 2. lumbosacral spondylosis without myelopathy 3. sacroiliitis Plan: 1. Explanation: Opioid and psychological risk scores were reviewed. Diagnoses , prognoses, and multiple treatment options including but not limited to physical therapy, interventional therapies, adjuvant medical therapies, narcotic medication therapies, and surgery were discussed with the patient and all questions were answered to the patient's satisfaction. 2. Opioid agreement: Patient has previously signed narcotic agreement, and was orally counseled to not overuse, abuse, divert, or cell medications, and to take them as prescribed by only 1 healthcare provider. The patient was also counseled to take medications as prescribed by only 1 healthcare provider and to store opioid medications in the safe and preferably locked location. Patient was also counseled against driving while using narcotic medications and also to not use alcohol or any illicit or recreational drugs. The patient verbalized understanding that lack of compliance with any of the above and likely result in failure to renew narcotic prescriptions, possible discharge from the clinic, and possible legal ramifications thereafter if indicated. 3. Counseling: The patient was counseled extensively on BODY MASS INDEX, EXERCISE. Specifically, the patient was instructed regarding the importance of weight maintenance and exercise in the context of both chronic pain and overall health. 4. Procedures: none for now 5. Consultations: None 6. Investigations: None 7. Medications: Refill Flexeril 10 mg #90 with two refills, patient has enough Proctor for now 8. Disposition: f/u for re-eval in 8 weeks PQRS measures: 1-Patient's medications are documented in the chart. 2-Tobacco use is negative 3-Patient has not had a pneumococcal vaccine. 4-Advanced care planning discussed, patient unable to give. 5-Opioid contract signed with the patient. 6-Pain positive, follow-up visit or procedure scheduled 7-Patient's blood pressure measured and documented, and patient will follow up with the primary care due to hypertension. 8-Patient's weight was measured, and body mass index within the normal limits. 9-Patient WAS NOT identified as an unhealthy alcohol user.
== END | disposition home or self-care (01) ==
LOC: PNWHC3 13:18
PROVIDERS: ATTEND Anesthesiology
DX: M51.36 Other intervertebral disc degeneration, lumbar region (principal); M47.817 Spondylosis without myelopathy or radiculopathy, lumbosacral region; M46.1 Sacroiliitis, not elsewhere classified; Z79.891 Long term (current) use of opiate analgesic
CPT/HCPCS: 99211

== ENCOUNTER 2018-05-01 18:21 | Emergency (ER) | payer MEDICARE, OTHER ==
[2018-05-01 18:34] VITALS: BP 171/78; PULSE 83; RESP 18; TEMP 98.5
[2018-05-01] MEDS ORDERED: Acetaminophen-Codeine 300-30mg TAB PO STA (20:10)
[2018-05-01] MEDS ORDERED: IBUPROFEN 800 MG TAB PO STA (20:10)
[2018-05-01] MEDS ORDERED: ACETAMINOPHEN TAB 325 MG TAB PO STA (20:10)
--- NOTE | 2018-05-01 20:29 | XR ---
EXAMINATION TYPE: XR foot complete LT DATE OF EXAM: 05/01/2018 COMPARISON: NONE HISTORY: Foot pain TECHNIQUE: 3 views FINDINGS: There is deformity of the first metatarsal head related to previous surgery. I see no fract ure nor dislocation. Joint spaces are fairly normal. There are no erosions. IMPRESSION: No acute abnormality of the left foot.
--- NOTE | 2018-05-01 20:53 | ED ---
Extremity Problem HPI - General Chief complaint: Extremity Problem,Nontraumatic Stated complaint: Foot pain Time Seen by Provider: 05/01/18 19:56 Source: patient, RN notes reviewed, old records reviewed Mode of arrival: ambulatory Limitations: no limitations - History of Present Illness Initial comments: This is a 62-year-old female the ER for evaluation of foot pain left foot pain tenderness the anterior foot and able to bear weight per patient. Patient states injury or pain started just this afternoon. She states she had a twisting of ankle injury yesterday, patient does suffer from chronic back pain. No modifying factors for pain control tonight. Patient denies any other injury, denies any other pain. Patient was seen in urgent care and an x-ray and ultrasound which is negative for DVT as well as negative x-ray MD Complaint: extremity pain (Left foot) -: hour(s) (6) Location: left, lower extremity Severity scale (1-10): 7 Quality: other (Unable to ambulate) Consistency: constant - Related Data Home Medications Medication Instructions Recorded Confirmed Atenolol [Tenormin] 25 mg PO BID 11/20/13 05/01/18 Levothyroxine Sodium [Synthroid] 25 mcg PO QAM 11/20/13 05/01/18 ALPRAZolam [Xanax] 0.25 mg PO HS PRN 12/09/17 05/01/18 Biotin 5 mg PO DAILY 05/01/18 05/01/18 Calcium Carbonate [Calcium] 600 mg PO DAILY 05/01/18 05/01/18 [place]-3 Fatty Acids/Fish Oil [Fish 1 cap PO DAILY 05/01/18 05/01/18 Oil 1,000 mg Softgel] Vitamin B Complex 1 cap PO DAILY 05/01/18 05/01/18 Zolpidem [Ambien] 10 mg PO HS 05/01/18 05/01/18 Previous Rx's Medication Instructions Recorded Cyclobenzaprine [Flexeril] 10 mg PO Q8H PRN #90 tab 12/09/17 Naproxen [Naprosyn] 500 mg PO Q12HR PRN #30 tab 05/01/18 Allergies Allergy/AdvReac Type Severity Reaction Status Date / Time bacitracin Allergy Rash/Hives Verified 05/01/18 20:05 Review of Systems ROS Statement: Those systems with pertinent positive or pertinent negative responses have been documented in the HPI. ROS Other: All systems not noted in ROS Statement are negative. Past Medical History Past Medical History: Asthma, Eye Disorder, GERD/Reflux, Hypertension, Osteoarthritis (OA), Thyroid Disorder Additional Past Medical History / Comment(s): chronic back & neck pain-fusion. Glaucoma History of Any Multi-Drug Resistant Organisms: None Reported Past Surgical History: Cholecystectomy, Hysterectomy, Orthopedic Surgery Additional Past Surgical History / Comment(s): neck fusion. jaw surg. back injections. trigger fingers. implant to left eye- pressure pump device-removed, retinol surgery x 2,LT EYE SURGERY X 6; R eye surgery Past Anesthesia/Blood Transfusion Reactions: No Reported Reaction Past Psychological History: Anxiety Smoking Status: Never smoker Past Alcohol Use History: Occasional Past Drug Use History: None Reported - Past Family History Mother Family Medical History: Cancer Brother(s) Family Medical History: Cancer Sister(s) Family Medical History: Cancer General Exam - General Exam Comments Initial Comments: (Anterior foot tenderness and swelling Limitations: no limitations General appearance: alert, in no apparent distress Head exam: Present: atraumatic, normocephalic, normal inspection Eye exam: Present: normal appearance, PERRL, EOMI. Absent: scleral icterus, conjunctival injection, periorbital swelling ENT exam: Present: normal exam, mucous membranes moist Neck exam: Present: normal inspection. Absent: tenderness, meningismus, lymphadenopathy Respiratory exam: Present: normal lung sounds bilaterally. Absent: respiratory distress, wheezes, rales, rhonchi, stridor Cardiovascular Exam: Present: regular rate, normal rhythm, normal heart sounds. Absent: systolic murmur, diastolic murmur, rubs, gallop, clicks GI/Abdominal exam: Present: soft, normal bowel sounds. Absent: distended, tenderness, guarding, rebound, rigid Extremities exam: Present: normal inspection, full ROM, normal capillary refill. Absent: tenderness, pedal edema, joint swelling, calf tenderness Back exam: Present: normal inspection Neurological exam: Present: alert, oriented X3, CN II-XII intact Psychiatric exam: Present: normal affect, normal mood Skin exam: Present: warm, dry, intact, normal color. Absent: rash Course Vital Signs 05/01/18 18:32 Temperature 98.5 F Pulse Rate 83 Respiratory 18 Rate Blood Pressure 171/78 O2 Sat by Pulse 100 Oximetry - Reevaluation(s) Reevaluation #1: 05/01/18 21:42 Patient 7 pain control, will be discharged home despite pain control to take at home pain medications Reevaluation #2: 05/01/18 21:42 Medical record is reviewed Medical Decision Making - Radiology Data Radiology results: report reviewed (X-ray left foot negative CT left foot negative), image reviewed Disposition Clinical Impression: Left foot pain Disposition: HOME SELF-CARE Condition: Good Instructions: Foot Sprain (ED) Prescriptions: Naproxen [Naprosyn] 500 mg PO Q12HR PRN #30 tab PRN Reason: Pain Is patient prescribed a controlled substance at d/c from ED?: No Referrals: Deepa Rachel MD [Primary Care Provider] - 1-2 days
[2018-05-01] MEDS ORDERED: HYDROcodone/APAP 5-325MG 1 EACH TAB PO STA (20:59)
--- NOTE | 2018-05-01 21:37 | CT ---
EXAMINATION TYPE: CT foot LT wo con DATE OF EXAM: 05/01/2018 COMPARISON: None HISTORY: left foot pain, no known injury CT DLP: 210.9 mGycm Automated exposure control for dose reduction was used. FINDINGS: Metatarsals appear intact. Joint spaces are fairly normal. The tarsal bones appear intact. I see no f racture nor dislocation. There are no erosions. There is no evidence of a soft tissue mass. There is minimal spurring of the first metatarsal head. IMPRESSION: NEGATIVE CT SCAN OF THE LEFT FOOT.
== END 2018-05-01 21:45 | disposition home or self-care (01) ==
LOC: EC 18:21
DX: M79.672 Pain in left foot (principal); G89.29 Other chronic pain; M54.9 Dorsalgia, unspecified; I10 Essential (primary) hypertension; M19.90 Unspecified osteoarthritis, unspecified site; E07.9 Disorder of thyroid, unspecified; Z79.899 Other long term (current) drug therapy; Z88.1 Allergy status to other antibiotic agents; Z53.20 Procedure and treatment not carried out because of patient's decision for unspecified reasons
CPT/HCPCS: 99284

== ENCOUNTER → 2018-05-01 | Outpatient (CLI) | payer MEDICARE, OTHER ==
--- NOTE | 2018-05-01 18:15 | US ---
EXAMINATION TYPE: US venous doppler duplex LE LT DATE OF EXAM: 05/01/2018 6:06 PM COMPARISON: NONE CLINICAL HISTORY: M79.605 Pain in left leg. Left foot pain SIDE PERFORMED: Left TECHNIQUE: The lower extremity deep venous system is examined utilizing real time linear array sonog tonja with graded compression, doppler sonography and color-flow sonography. VESSELS IMAGED: External Iliac Vein (EIV) Common Femoral Vein Deep Femoral Vein Greater Saphenous Vein * Femoral Vein Popliteal Vein Small Saphenous Vein * Proximal Calf Veins (* superficial vessels Left Leg: Negative for DVT No evidence of DVT left leg. IMPRESSION: No deep venous thrombosis in the left leg.
== END | disposition home or self-care (01) ==
LOC: RADUSMAIN 17:48
PROVIDERS: ATTEND Family Medicine
DX: M79.605 Pain in left leg (principal)

== ENCOUNTER → 2018-05-26 | Outpatient (CLI) | payer MEDICARE, OTHER ==
--- NOTE | 2018-05-27 10:35 | MM ---
Reason for exam: screening (asymptomatic). Last mammogram was performed 1 year and 11 months ago. History: Patient is postmenopausal. Family history of breast cancer in mother at age 55. Benign excisional biopsy of the left breast, 2001. Took estrogen for 18 years beginning at age 32. Physical Findings: A clinical breast exam by your physician is recommended on an annual basis and results should be correlated with mammographic findings. MG 3D Screening Mammo W/Cad Bilateral CC and MLO view(s) were taken. Prior study comparison: July 05, 2016, bilateral MG 3d diag mammo w/cad SARAH. June 06, 2015, bilateral MG 3d diag mammo w/cad SARAH. There are scattered fibroglandular densities. There is no discrete abnormality. ASSESSMENT: Negative, BI-RAD 1 RECOMMENDATION: Routine screening mammogram of both breasts in 1 year.
== END ==
LOC: RADMAMWWP 07:09
PROVIDERS: ATTEND Obstetrics & Gynecology
DX: Z12.31 Encounter for screening mammogram for malignant neoplasm of breast (principal)
CPT/HCPCS: 77063; 77067

== ENCOUNTER → 2018-05-28 | Day surgery (SDC) | payer MEDICARE, OTHER ==
[2018-05-26 12:25] VITALS: BMI 22.3
[~2018-05-28] MED LIST changes: -LACTATED RINGERS 1,000 ML IV SCH; +SODIUM CHLORIDE 0.9% 500 ML 500 ML IV ONE; +SODIUM CHLORIDE 0.9% 500 ML 500 ML IV SCH
[2018-05-28 09:55] VITALS: TEMP 98.2
--- NOTE | 2018-05-28 11:01 | P.PCN ---
Date of Procedure: 05/28/18 Surgeon: Leila Gates Pathology: none sent Condition: stable Disposition: PACU Description of Procedure: PREOPERATIVE DIAGNOSIS: 1-Lumbosacral arthropathy. 2-left sacroiliitis. POSTOPERATIVE DIAGNOSIS: 1-Lumbosacral arthropathy. 2-left sacroiliitis. PROCEDURES: 1- left radiofrequency thermocoagulation/ablation of the L5 dorsal ramus. 2- left multi-site radiofrequency thermocoagulation/ablation of the S1, S2, and S3 lateral branchs. The procedure was performed using fluoroscopic guidance during needle placement to assure proper position and maximize safety. ANESTHESIA: LOCAL ANESTHESIA with moderate conscious sedation with IV fentanyl and Versed EBL: NONE PROCEDURE DESCRIPTION: The patient was seen and identified in the preoperative area. Risks, benefits, complications, and alternatives were discussed with the patient. The patient agreed to proceed with the procedure and signed the consent. Vital signs were checked before and after the procedure and they remained stable. Patient ambulated to the procedure room and time out was completed. The patient was placed in the prone position on the procedure table and a pillow was placed under the abdomen to reduce lumbar lordosis. The lumbosacral area was prepped and draped in the usual sterile fashion. Critical pause was taken. Using left oblique fluoroscopy, the junction of the transverse process and the superior articular process of the right S1 vertebra, which correspond to the fluoroscopic image of the "eye of the Adolfo dog" was identified. Subsequently, a 10-cm 18-gauge radiofrequency cannula with a 10-mm active tip was advanced under fluoroscopic guidance until contact was made with periosteum. At this level, motor stimulation was done at 2 Hz with stimulation of mulitifidus muscle contration at 1.5 volts. No radicular symptoms or paresthesias were produced during the testing. Subsequently, the L5 dorsal ramus was subjected to a radiofrequency ablation at a mode of 90 seconds at 80 degrees Celsius after negative motor testing and after injecting 0.5 ml of preservative free Ropivacaine 0.5% and 40 mg of Kenalog. The needle was withdrawn intact the procedure was repeated on the left side using the same technique. S1, S3, and S3 Lateral Branch RF: The lateral margins of the left S1, S2, and S3 foramina were identified using AP fluoroscopy. Under fluoroscopic guidance, three 10-cm 18gauge radiofrequency cannula with a 10-mm active tip were inserted at 8-10 mm peripheral to the posterior S1 foramen, at various locations using clock-face coordinates. The center of the clock was registered at the lateral margin of the foramen. Motor stimulation was done at 2 Hz. No radicular symptoms or paresthesias were produced during the testing. Subsequently, the S1 lateral branch was subjected to a radiofrequency ablation at a mode of 90 seconds at 80 degrees Celsius at the 3 levels after negative motor testing and after injecting 0.5 ml of preservative free Ropivacaine 0.5%. The same procedure was performed at the level of the S2 foramen. For the S3 foramen, only the 9:30 and 8:00 oclock positions were used. Motor testing followed by radiofrequency ablation were performed as described for the S1 and S2 foramina. COMPLICATIONS: The patient tolerated the procedure well without any acute complications. DISPOSTION/PLAN: The patient ambulated to the recovery area after the procedure in a stable condition for observation. Patient was reexamined prior to discharge. Patient was observed in the recovery area and was discharged home, accompanied by an adult, after meeting discharged criteria. Discharge instructions were give to the patient by the staff. Patient was specifically instructed not to drive today and to rest for the rest of the day.
[2018-05-28 11:43] VITALS: BP 132/62; PULSE 69; RESP 20
--- NOTE | 2018-05-28 11:53 | FL ---
EXAMINATION TYPE: FL guided pain mgmt statistic DATE OF EXAM: 05/28/2018 HISTORY: Flouroscopy time 13 seconds of fluoroscopy provided. IMPRESSION: 1. Fluoroscopy time.
== END ==
LOC: ORPAIN 09:26
PROVIDERS: ATTEND Anesthesiology
DX: M46.1 Sacroiliitis, not elsewhere classified (principal); M46.97 Unspecified inflammatory spondylopathy, lumbosacral region; I10 Essential (primary) hypertension; Z88.1 Allergy status to other antibiotic agents
CPT/HCPCS: 64640 ×2; 64635; J2250; J3301; J3010; 99152

== ENCOUNTER → 2018-07-01 | Outpatient (CLI) | payer MEDICARE, OTHER ==
--- NOTE | 2018-07-01 10:59 | BD ---
EXAMINATION TYPE: Axial Bone Density DATE OF EXAM: 07/01/2018 COMPARISON: Prior DEXA bone scan August 04, 2012 CLINICAL HISTORY: Postmenopausal female Height: 5 FT 2 IN Weight: 124 FRAX RISK QUESTIONS: Glucocorticoids (More than 3mos): EYE STEROIDS DROPS Secondary Osteoporosis: 3. Menopause before 45: YES RISK FACTORS HISTORY OF: Active: YES Postmenopausal woman: TOTAL HYST AGE 31 Take estrogen and/or progesterone medications: TOOK HRT FOR 5-10 YEARS FOLLOWING HYST MEDICATIONS: Prednisone or other steroids: EYE STEROIDS, BACK STEROID INJ NEEDED How Long: STILL TAKE NEEDED Thyroid Medications: YES Which medication: LEVOTHYROXINE How Lon YEARS Additional Medications: LEVOTHYROXINE, FLEXERALL, ATENOLOL, NORVASC, XANAX Additional History: STEROID INJECTIONS IN LUMBAR FOR PAIN NEEDED ONE TO TWO TIMES A YEAR EXAM MEASUREMENTS: Bone mineral densitometry was performed using the [employer] System. Bone mineral density as measured about the Lumbar spine is: ----- L1-L4(G/cm2): 1.183 T Score Values are as follows: ----- L2: -0.7 ----- L3: -0.1 ----- L4: 0.3 ----- L1-L4: 0.0 Bone mineral density has: INCREASED 2.9 % since study of: 2012 Bone mineral density about the R hip (g/cm2): 0.801 Bone mineral density about the L hip (g/cm2): 0.783 T Score values are as follows: -----R Neck: -1.7 -----L Neck: -1.8 -----R Total: -1.0 -----L Total: -1.3 Bone mineral density has: DECREASED -0.9 % since study of: 2012 IMPRESSION: Osteopenia (T Score between -2.5 and -1) identified femoral neck level of both hips. There is slightly increased risk of fracture and the patient may be considered for treatment. Re-Screen 2-5 years. NOTE: T-SCORE=SD OF THE YOUNG ADULT MEAN.
== END | disposition home or self-care (01) ==
LOC: RADBDWWP 09:16
PROVIDERS: ATTEND Obstetrics & Gynecology
DX: M85.851 Other specified disorders of bone density and structure, right thigh (principal); M85.852 Other specified disorders of bone density and structure, left thigh
CPT/HCPCS: 77080

== ENCOUNTER → 2018-07-01 | Outpatient (CLI) | payer MEDICARE, OTHER ==
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
== END | disposition home or self-care (01) ==
LOC: SLEEP 16:08
PROVIDERS: ATTEND Internal Medicine Critical Care Medicine
DX: G47.00 Insomnia, unspecified (principal); F41.9 Anxiety disorder, unspecified; G89.29 Other chronic pain; I10 Essential (primary) hypertension; E78.5 Hyperlipidemia, unspecified; H40.9 Unspecified glaucoma; H54.62 Unqualified visual loss, left eye, normal vision right eye; Z90.710 Acquired absence of both cervix and uterus; Z88.1 Allergy status to other antibiotic agents; Z79.899 Other long term (current) drug therapy; Z79.1 Long term (current) use of non-steroidal anti-inflammatories (NSAID); Z98.890 Other specified postprocedural states
CPT/HCPCS: 99211

== ENCOUNTER → 2018-08-28 | Outpatient (CLI) | payer MEDICARE, OTHER ==
[2018-08-28 14:11] VITALS: BP 173/79; PULSE 88; RESP 16; TEMP 97.9
--- NOTE | 2018-08-29 20:33 | P.PN ---
Subjective Progress Note Date: 08/28/18 This is a follow-up visit for this 62 years old female with a chronic history of severe low back pain, patient diagnosed with lumbar degenerative disc disease of lumbar bulging disc disease, lumbar spondylosis, and sacroiliitis, we have done radiofrequency ablation of the sacroiliac joint previously, and patient gets excellent pain relief, currently patient complaining of severe low back pain mainly on the right side, the pain is intense increased with any activity, she denies any motor or sensory deficit, patient had excellent pain relief with the previous radiofrequency ablation of the sacroiliac joint, patient currently on Motrin 800 mg every 6 hours and Flexeril 10 mg every 8 hours, she denies any side effect of the medication she denies any excessive drowsiness or sleepiness Physical Examinations : 1-Constitutiona : Cooperative , not in acute distress . 2-HEENT : nech ; supple , no Lymphadenopathy , normal thyroid size . eyes : no ptosis , no icterus, no photophobia . ENT : normal of hearing , normal oropharynx , no Thrush . 3- Respiratory : Chest clear to auscultations Bilaterally , no wheezing , no Rhonchi . 4- Cardiovascular : regular rate and rhythem , S1 , S2 , no S3 , no S4. 5- Gastrointestinal : abdomen soft no tenderness , bowel sounds , no organomegally . 6- Genitourinary : Defferred . 7- neurologic : Cranial nerve II to XII intact , no focal neurological deffecit . 8-psychatric : alert , oriented X 3 , appropriate affect , intact judgment and insight . 9-Lymphatic : no Lymphadenopathy . 10- musculoskeltal : moter stegnth lower extremities , thigh and legs 5/5 Right side , 5/5 Left side deep tendon reflexes : normal Knee Jerk , normal ankle Jerk positive lumber facet Loading Test Range of motion of the lumbar spine Flexion 30 degrees, extension 10 degrees strait leg raising test , positive at degree Fabere test positive RT and positive LT . Sever tenderness over the Sacroiliac joint on the R and L sides Gaenslen test positive bilaterally. Seated flexion test positive bilaterally Assessment and plan = - Chronic low back pain secondary to lumbar degenerative disc disease , lumbar spondylosis with facet arthropathy without myelopathy , sacroiliitis - diagnoses, prognosis, and treatment options including but not limited to physical therapy, surgical interventions, interventional therapies and medication Patient could benefit from repeat radiofrequency ablation of the sacroiliac joint, patient will be scheduled to have radiofrequency ablation of the right side L5- S1 dorsal ramus and the right side lateral branches of S1/S2/S3, Recommend to change the dose of Motrin to 600 mg every 8 hours when necessary , - PQRS measures = - Patient's medications are documented in the chart. -Tobacco use is negative and counseling.Given. -Patient's has not received pneumococcal vaccine. -Advanced care planning discussed, patient not eligible. -Opiate contract not signed. -Pain positive and follow-up visit/procedure is scheduled. -Patient's blood pressure measured [ 173/70 ] , and documented in the record ,and patient will follow up with the primary care. -Patient's weight was measured and body mass index [ 23 ] ,within the normal limits and counseling was done. and patient instructed to follow-up with the primary care physician. -Patient was not identified as an unhealthy alcohol user Objective - Vital Signs Vital signs: Vital Signs Temp 97.9 F 08/28/18 14:01 Pulse 88 08/28/18 14:01 Resp 16 08/28/18 14:01 BP 173/79 08/28/18 14:01 Pulse Ox
== END | disposition home or self-care (01) ==
LOC: PNWHC3 13:14
PROVIDERS: ATTEND Specialist
DX: G89.29 Other chronic pain (principal); M51.36 Other intervertebral disc degeneration, lumbar region; M47.816 Spondylosis without myelopathy or radiculopathy, lumbar region; M46.96 Unspecified inflammatory spondylopathy, lumbar region; M46.1 Sacroiliitis, not elsewhere classified; Z98.890 Other specified postprocedural states; Z79.1 Long term (current) use of non-steroidal anti-inflammatories (NSAID); Z79.899 Other long term (current) drug therapy
CPT/HCPCS: 99211

== ENCOUNTER → 2018-09-04 | Outpatient (CLI) | payer MEDICARE, OTHER ==
[2018-09-04 16:24] LABS: LDL Cholesterol,Calculated 131.8 mg/dL (0.0-131.0); VLDL Calculation 24.2 mg/dL (5.00-40.00)
== END ==
LOC: LABWHC1 08:41
PROVIDERS: ATTEND Internal Medicine Interventional Cardiology
DX: E78.5 Hyperlipidemia, unspecified (principal)
CPT/HCPCS: 36415; 80061; 82550; 84450; 84460

== ENCOUNTER 2018-09-11 06:32 | Day surgery (SDC) | payer MEDICARE, OTHER ==
[2018-09-09 14:51] VITALS: BMI 22.4
[2018-09-11 07:29] VITALS: TEMP 97
[2018-09-11] MEDS ORDERED: LACTATED RINGERS 1,000 ML IV ONE (07:39)
[2018-09-11] MEDS ORDERED: LIDOCAINE 1% 20 ML VIAL (10MG/ML) FOR IV START INTRADERMA ONE (07:40)
--- NOTE | 2018-09-11 08:03 | P.PCN ---
Date of Procedure: 09/11/18 Anesthesia: MAC (Conscious sedation) Description of Procedure: Procedure: Bilateral Sacroiliac joint injection Preoperative diagnosis: Sacroiliitis Postoperative diagnosis: Sacroiliitis Complication: none Anesthesia: conscious sedation and local with 1% lidocaine Description of the procedure: procedure risk and benefits discussed with the patient, including but not limited, risk of infection and bleeding, and allergic reaction to the medication and incomplete pain relief. Patient agreed and signed consent. Patient was taken to the room and placed in a prone position. Chlorhexidine was used to cleanse the skin. Under sterile conditions patient skin was anesthetized 1% lidocaine. Subcutaneous tissues were also anesthetized with a total 5 mL of 1% lidocaine. After that 22-gauge spinal needle was advanced through the anesthetized location. Needle was advanced into the inferior portion of the sacroiliac joint. IV contrast was used to confirm spread within the joint. After adequate spread was achieved, 2.5 ML's of 0.5% ropivacaine with 40 mg of triamcinolone was injected into the joint. Steroid dose was split between both sides. Patient received 2.5 ML's in each joint which included 0.5 ML or 20 mg of triamcinolone in each joint. Patient tolerated the procedure well. Sent to the recovery room in stable condition. Patient will follow up in the clinic in 4-8 weeks' time
[2018-09-11] MEDS ORDERED: IV FLUID CONTINUATION 1,000 ML IV ONE (08:28)
[2018-09-11 08:35] VITALS: RESP 18
[2018-09-11 08:44] VITALS: BP 125/77; PULSE 68
--- NOTE | 2018-09-11 08:48 | FL ---
EXAMINATION TYPE: FL guided pain mgmt statistic DATE OF EXAM: 09/11/2018 HISTORY: Flouroscopy time 5 seconds of fluoroscopy provided. IMPRESSION: 1. Fluoroscopy time.
== END 2018-09-11 08:58 | disposition home or self-care (01) ==
LOC: ORPAIN 06:32
PROVIDERS: ATTEND Hospitalist
DX: G89.29 Other chronic pain (principal); M46.1 Sacroiliitis, not elsewhere classified; M51.36 Other intervertebral disc degeneration, lumbar region; M47.816 Spondylosis without myelopathy or radiculopathy, lumbar region; M51.26 Other intervertebral disc displacement, lumbar region; Z79.1 Long term (current) use of non-steroidal anti-inflammatories (NSAID); Z79.899 Other long term (current) drug therapy; Z88.1 Allergy status to other antibiotic agents
CPT/HCPCS: J2250; J1030; J3010; Q9966; G0260

== ENCOUNTER → 2018-09-22 | Outpatient (CLI) | payer MEDICARE, OTHER ==
[2018-09-22 13:13] VITALS: BP 158/78; PULSE 64; RESP 16
--- NOTE | 2018-09-23 10:45 | P.PN ---
Subjective Progress Note Date: 09/22/18 This is a follow-up visit for this 62 years old female with a chronic history of severe low back pain, patient diagnosed with lumbar degenerative disc disease of lumbar bulging disc disease, lumbar spondylosis, and sacroiliitis, we have done radiofrequency ablation of the sacroiliac joint previously, and patient gets excellent pain relief, currently patient complaining of severe low back pain , the pain is intense increased with any activity, she denies any motor or sensory deficit, patient currently on Motrin 800 mg every 6 hours and Flexeril 10 mg every 8 hours, she denies any side effect of the medication she denies any excessive drowsiness or sleepiness, and she is getting prescription refills from her primary care Physical Examinations : 1-Constitutiona : Cooperative , not in acute distress . 2-HEENT : nech ; supple , no Lymphadenopathy , normal thyroid size . eyes : no ptosis , no icterus, no photophobia . ENT : normal of hearing , normal oropharynx , no Thrush . 3- Respiratory : Chest clear to auscultations Bilaterally , no wheezing , no Rhonchi . 4- Cardiovascular : regular rate and rhythem , S1 , S2 , no S3 , no S4. 5- Gastrointestinal : abdomen soft no tenderness , bowel sounds , no organomegally . 6- Genitourinary : Defferred . 7- neurologic : Cranial nerve II to XII intact , no focal neurological deffecit . 8-psychatric : alert , oriented X 3 , appropriate affect , intact judgment and insight . 9-Lymphatic : no Lymphadenopathy . 10- musculoskeltal : moter stegnth lower extremities , thigh and legs 5/5 Right side , 5/5 Left side deep tendon reflexes : normal Knee Jerk , normal ankle Jerk positive lumber facet Loading Test Range of motion of the lumbar spine Flexion 60 degrees, extension 30 degrees strait leg raising test , positive at degree Fabere test positive RT at 60, and positive LT . At 60 mild tenderness over the Sacroiliac joint on the R and L sides Gaenslen test positive bilaterally. Seated flexion test positive bilaterally Assessment and plan = - Chronic low back pain secondary to lumbar degenerative disc disease , lumbar spondylosis with facet arthropathy without myelopathy , sacroiliitis - currentely most of the pain is coming from the facetogenic component, patient will be good candidate to have diagnostic medial branch block lumbar area at L34 , L45 ,L5S1 x2 She'll get good pain relief and she will be good candidate for radiofrequency ablation medial branch lumbar - PQRS measures = - Patient's medications are documented in the chart. -Tobacco use is negative . -Patient's has not received pneumococcal vaccine. -Advanced care planning discussed, patient not eligible. -Opiate contract not signed. -Pain positive and follow-up visit/procedure is scheduled. -Patient's blood pressure measured [ 138/78 ] , and documented in the record ,and patient will follow up with the primary care. -Patient's weight was measured and body mass index [ 22,7 ] ,within the normal limits and counseling was done. and patient instructed to follow- up with the primary care physician. -Patient was not identified as an unhealthy alcohol user Objective - Vital Signs Vital signs: Vital Signs Temp Pulse 64 09/22/18 13:06 Resp 16 09/22/18 13:06 BP 158/78 09/22/18 13:06 Pulse Ox 100 09/22/18 13:06 Intake & Output 09/22/18 09/23/18 09/23/18 18:59 06:59 18:59 Weight 56.245 kg
== END ==
LOC: PNWHC3 12:26
PROVIDERS: ATTEND Specialist
DX: G89.29 Other chronic pain (principal); M51.36 Other intervertebral disc degeneration, lumbar region; M47.816 Spondylosis without myelopathy or radiculopathy, lumbar region; M46.96 Unspecified inflammatory spondylopathy, lumbar region; M46.1 Sacroiliitis, not elsewhere classified
CPT/HCPCS: 99211

== ENCOUNTER → 2018-11-19 | Outpatient (CLI) | payer MEDICARE, OTHER ==
--- NOTE | 2018-11-19 08:52 | US ---
EXAMINATION TYPE: US abdomen complete DATE OF EXAM: 11/19/2018 COMPARISON: US 2016 CLINICAL HISTORY: R10.10 Upper abdominal pain, unspecified. Nausea after eating x couple weeks, bloat ing, occasional abdomen discomfort, history of cholecystectomy. EXAM MEASUREMENTS: Liver Length: 11.9 cm Gallbladder Wall: surgically absent CBD: 0.7 cm Spleen: 8.7 cm Right Kidney: 9.3 x 4.5 x 4.1 cm Left Kidney: 9.7 x 4.8 x 4.9 cm Pancreas: visualized portions wnl, tail limited by overlying midline bowel gas Liver: wnl Gallbladder: surgically absent Evidence for sonographic Estes's sign: no CBD: wnl Spleen: wnl Right Kidney: wnl Left Kidney: wnl Upper IVC: wnl Abd Aorta: wnl The liver is homogenous. The intrahepatic portion of the IVC and proximal abdominal aorta are within normal limits. Common bile duct is unremarkable. The visualized portions of the pancreas are homog enous. The spleen is unremarkable. Kidneys are symmetric and free of hydronephrosis. No renal lesi ons are seen. IMPRESSION: 1. No distinct abnormality seen. Changes of prior cholecystectomy.
== END | disposition home or self-care (01) ==
LOC: RADUSWWP 07:49
PROVIDERS: ATTEND Family Medicine
DX: R10.10 Upper abdominal pain, unspecified (principal); Z90.49 Acquired absence of other specified parts of digestive tract
CPT/HCPCS: 76700

== ENCOUNTER → 2019-01-29 | Outpatient (CLI) | payer MEDICARE, OTHER ==
[2019-01-29 11:42] LABS: LDL Cholesterol,Calculated 146.2 mg/dL (0.0-131.0); VLDL Calculation 20.8 mg/dL (5.00-40.00)
== END | disposition home or self-care (01) ==
LOC: LABWHC1 07:44
PROVIDERS: ATTEND Internal Medicine Interventional Cardiology
DX: E78.2 Mixed hyperlipidemia (principal)
CPT/HCPCS: 36415; 80061; 84450; 84460

== ENCOUNTER → 2019-02-17 | Outpatient (CLI) | payer MEDICARE, OTHER ==
[2019-02-17 12:25] VITALS: BP 155/80; PULSE 71; RESP 16
--- NOTE | 2019-02-17 12:40 | P.PN ---
Subjective Progress Note Date: 02/17/19 This is a 63-year-old lady with history of chronic lower back pain due to lumbar spondylosis without myelopathy. The patient has been having increasing right leg pain with radiation to the right foot with numbness and tingling. This pain is worse at night. Her last MRI showed disc bulging at the L4 5 level. Her left leg pain is intermittent however it happens more during the night. The patient had to use half a pill of Gormania because of her right leg pain. She gets her Gormania from her primary care physician however she does not use it on a regular basis. Today, pt denies new-onset weakness, bowel/bladder incontinence, or any other signs or symptoms of cauda equina syndrome. There are no signs of acute intoxication, and no indications of medication diversion or overuse. In addition to above, 13-point review of systems is also negative for chest pain, shortness of breath, changes in vision, changes in hearing, new onset weakness, abdominal pain, diarrhea, extreme fatigue, malaise, fever, skin changes, homicidal or suicidal ideation, or bowel or bladder incontinence. Vital Signs: Reviewed in EMR Gen: AAOx3, NAD HEENT: PERRLA,hearing grossly normal Pulm: resp unlabored,CTA Heart:S1,S2, No Mur Neck: supple, trachea midline Neuro exam of the lower extremities: Absent right knee reflex and decreased left knee reflex and absent ankle reflexes bilaterally. Decreased but symmetrical muscle strength in the lower extremities bilaterally Straight leg raising test: Negative on the right side Carlin's test: Range of motion of the lumbar spine: Facet loading test: Tenderness in the paravertebral musculature: Positive tenderness on the right side of the lumbar spine Neuro: CN II-XII grossly intact, Imaging: Reviewed in EMR/chart Assessment: Right lumbar radiculopathy Lumbar spondylosis without myelopathy Plan: 1. Explanation: Opioid and psychological risk scores were reviewed. Diagnoses, prognoses, and multiple treatment options including but not limited to physical therapy, interventional therapies, adjuvant medical therapies, narcotic medication therapies, and surgery were discussed with the patient and all questions were answered to the patient's satisfaction. 2. Opioid agreement: We do not prescribe opioids for this lady. 3. Counseling: The patient was counseled extensively on SMOKING CESSATION, BODY MASS INDEX, EXERCISE. Specifically, the patient was instructed regarding the importance of smoking cessation, obesity, and exercise in the context of both chronic pain and overall health. 4. Procedures: Scheduled for lumbar epidural steroid injection at the L4 5 level in the right paramedian approach under fluoroscopic guidance . The patient also may benefit from getting a diagnostic lumbar medial branch block in the future to address her lower back pain. 5. Consultations: None 6. Investigations: None 7. Medications: Neurontin 300 mg 1 by mouth daily at bedtime #30 pills with no refills 8. Disposition: 9. Maps were reviewed and were appropriate. PQRS measures: 1-Patient's medications are documented in the chart. 2-Tobacco use is negative, counseling given 3-Patient has had a pneumococcal vaccine. 4-Advanced care planning discussed, patient unable to give 5-Opioid contract signed with the patient. 6-Pain positive, follow-up visit or procedure scheduled 7-Patient's blood pressure measured and documented above/ normal limits. The patient will follow up with his primary care physician. 8-Patient's weight was measured, and body mass index ABOVE the normal limits, and counseling was done. Patient instructed to follow up with PCP. 9-Patient WAS NOT identified as an unhealthy alcohol user. Objective - Vital Signs Vital signs: Vital Signs Temp Pulse 71 02/17/19 12:02 Resp 16 02/17/19 12:02 BP 155/80 02/17/19 12:02 Pulse Ox Intake & Output 02/16/19 02/17/19 02/17/19 18:59 06:59 18:59 Weight 57.153 kg
== END ==
LOC: PNWHC3 11:28
PROVIDERS: ATTEND Anesthesiology
DX: M47.26 Other spondylosis with radiculopathy, lumbar region (principal); Z71.6 Tobacco abuse counseling; Z79.899 Other long term (current) drug therapy
CPT/HCPCS: 99211

== ENCOUNTER → 2019-03-02 | Day surgery (SDC) | payer MEDICARE, OTHER ==
[~2019-03-02] MED LIST changes: +IV FLUID CONTINUATION 1,000 ML IV ONE; +LACTATED RINGERS 1,000 ML IV SCH; +LIDOCAINE 1% 20 ML VIAL (10MG/ML) FOR IV START INTRADERMA ONE; -SODIUM CHLORIDE 0.9% 500 ML 500 ML IV ONE; -SODIUM CHLORIDE 0.9% 500 ML 500 ML IV SCH
[2019-03-02 08:36] VITALS: TEMP 98.5
--- NOTE | 2019-03-02 09:29 | P.PCN ---
Date of Procedure: 03/02/19 Procedure(s) Performed: PREOPERATIVE DIAGNOSIS: 1- Lumbar radiculopathy, Lumbar Degenerative Disc Diseases 2-Lumbar spondylosis with Facet arthropathy without myelopathy POSTOPERATIVE DIAGNOSIS: 1-Lumber Degenerative Disc Diseases 2-Lumbar spondylosis with Facet arthropathy without myelopathy PROCEDURE 1. Lumbar epidural steroid injection under fluoroscopic guidance at the L45 level using a right paramedian approach 2. Lumbar epidurogram. ANESTHESIA: Local with 1% lidocaine 3 ml, moderate sedation with intravenous Versed and fentanyl Fluoroscopy was used for the procedure and images were saved in the radiology portion of the chart. EBL: Minimal PROCEDURE INDICATION: The patient with low back pain and radiculitis symptoms unresponsive to conservative treatment. Fluoroscopy was used to optimize visualization of the needle placement and to maximize safety. PROCEDURE DESCRIPTION / TECHNIQUE: The patient was seen and identified in the preoperative area. Risks, benefits, complications including but not limited to infections ,bleeding ,allergic reaction to the medications ,nerve damage and incomplete pain releif , and alternatives were discussed with the patient. The patient agreed to proceed with the procedure and signed the consent. IV was started, and vital signs were stable. Patient was taken to the OR and time out was completed. The patient was placed in the prone position on procedure table and a pillow was placed under the abdomen to reduce lumbar lordosis. The lumbosacral area was prepped and draped in the usual sterile fashion. Vitals were closely monitored during the procedure. Conscious sedation was used during the procedure to decrease patients anxiety. Using anterior-posterior fluoroscopy, the [] interlaminar space was identified and the skin over this site was marked and then infiltrated with 1% lidocaine subcutaneously. Subsequently, a 20-gauge 3.5" Tuohy epidural needle was inserted and advanced toward the epidural space using the loss of resistance technique and guided by AP and lateral/ oblique fluoroscopy. The correct needle position i n the epidural space was verified with the injection of 2 mL of the water soluble contrast dye Isovue 200 contrast under live fluoroscopy, observing an excellent epidurogram. Then, after negative aspiration for blood and CSF and in the absence of paresthesias, a 5 ml mixture containing 80 mg of Depo-medrol , 3 ml of preservative free Normal Saline, and 1 ml of preservative free lidocaine 1% solution was injected and a washout epidurogram was seen. Needle was withdrawn intact, skin was cleansed, and bandages were applied. COMPLICATIONS: None DISPOSITION / PLANS: The patient was placed in a supine position and transferred to the recovery area in a stable condition for observation. There was no evidence of lower extremity motor or sensory deficit after the procedure. Patient was discharged from the recovery room after meeting discharge criteria. Home discharge instructions were given to the patient by the staff. The patient will schedule a follow up in the clinic in 4 weeks.
--- NOTE | 2019-03-02 09:39 | FL ---
EXAMINATION TYPE: FL guided pain mgmt statistic DATE OF EXAM: 03/02/2019 HISTORY: Flouroscopy time 4 seconds of fluoroscopy provided. IMPRESSION: 1. Fluoroscopy time.
[2019-03-02 09:52] VITALS: BP 130/80; PULSE 60; RESP 16
== END ==
LOC: ORPAIN 07:29
PROVIDERS: ATTEND Anesthesiology
DX: G89.29 Other chronic pain (principal); M47.26 Other spondylosis with radiculopathy, lumbar region; M51.16 Intervertebral disc disorders with radiculopathy, lumbar region; Z79.891 Long term (current) use of opiate analgesic
CPT/HCPCS: 62323; J2250; J1030; J3010; Q9966; 99152

== ENCOUNTER → 2019-03-30 | Outpatient (CLI) | payer MEDICARE, OTHER ==
[2019-03-30 13:14] VITALS: BP 159/67; PULSE 75; RESP 16
--- NOTE | 2019-03-31 05:42 | P.PAINPG ---
Subjective Progress Note Date: 03/30/19 This is a follow-up visit for this 62 years old female with a chronic history of severe low back pain, patient diagnosed with lumbar degenerative disc disease of lumbar bulging disc disease, lumbar spondylosis, and sacroiliitis, we have done radiofrequency ablation of the sacroiliac joint previously, and patient gets excellent pain relief, currently is complaining of some muscle spasm in the lumbar area , she denies any motor or sensory deficit, patient currently on Motrin 800 mg every 6 hours and Flexeril 10 mg every 8 hours, she denies any side effect of the medication she denies any excessive drowsiness or sleepiness, and she is getting prescription refills from her primary care Objective - Vital Signs Vital signs: Vital Signs Temp Pulse 75 03/30/19 13:09 Resp 16 03/30/19 13:09 BP 159/67 03/30/19 13:09 Pulse Ox 100 03/30/19 13:09 Intake & Output 03/30/19 03/30/19 03/31/19 06:59 18:59 06:59 Weight 56.699 kg - Exam Physical Examinations : -Constitutiona : Cooperative , not in acute distress . -HEENT : nech : supple , no Lymphadenopathy , normal thyroid size . eyes : no ptosis , no icterus, no photophobia - musculoskeltal : Lumber spine moter stegnth lower extremities ,thigh and legs 5/5 Right side , 5/5 Left side deep tendon reflexes : normal Knee Jerk , normal ankle Jerk lumber facet Loading Test = negative Range of motion of the lumbar spine Flexion 60 degrees, extension 30 degrees strait leg raising test = negative Fabere test = negative mild to moderate tenderness over the Sacroiliac joint on the Right Multiple trigger points identified in the lumbar paravertebral muscles Assessment and Plan Plan: Assessment and plan= lumbar spondylosis, lumbar facet arthropathy,, sacroiliitis , myofascial pain syndrome lumbar area Pain improved after interventional pain procedures , (LESI , RFA of the SI joints ) Recommend to continue Flexeril 10 mg every 8 hours , and continue Motrin when necessary she will follow up with the pain clinic in 3 months PQRS Measure Charge Sheet Measure #130: Documentation of Current Meds in Medical Chart: Patient's medications documented in chart Measure #226: Tobacco Use: Screen & Cessation Intervention: Pt not a tobacco user Measure #111: Pneumonia Vaccination: Pneumococcal vaccine NOT administered or previously given Measure #47: Advance Care Plan: Advance care planning discussed & documented, pt chose/unable to give Measure #412: Opioid Treatment Agreement: Documented signed opioid trtmnt agreemnt min once during opioid trtmnt Measure #408: Opioid Therapy Follow-up Evaluation: Patient had f/u eval minimum every 3 months during opioid therapy Measure #317: Preventitive Care & Scrn High Bld Press & F/U: Pre-hypertensive or hypertensive BP documented, pt will f/u with PCP Measure #128: Body Mass Index (BMI) Screening & Follow-up: BMI documented within normal parameters Measure #131: Pain Assessment & Follow-up: Pain positive & plan documented, Follow-up scheduled Measure #431: Unhealthy Alcohol Use Preventative Care & Scrn: Patient not identified as an unhealthy alcohol user PQRS Narrative: Smoking Status Never smoker Narcotic Agreement Date Signed 12/09/17 Blood Pressure 159/67 Pain Intensity [Right Lower 3 Back] Scale Used Numeric (1 - 10) Hx Alcohol Use (MH) Yes: OCC. Home Medications: Ambulatory Orders Atenolol [Tenormin] 25 mg PO BID 11/20/13 Levothyroxine Sodium [Synthroid] 25 mcg PO QAM 11/20/13 ALPRAZolam [Xanax] 0.25 mg PO HS PRN 12/09/17 Cyclobenzaprine [Flexeril] 10 mg PO Q8H PRN #90 tab 12/09/17 Biotin 5 mg PO DAILY 05/01/18 [place]-3 Fatty Acids/Fish Oil [Fish Oil 1,000 mg Softgel] 1 cap PO DAILY 05/01/18 Vitamin B Complex 1 cap PO DAILY 05/01/18 Ibuprofen [Motrin] 800 mg PO BID PRN 05/26/18 Omeprazole [PriLOSEC] 40 mg PO DAILY 05/26/18 amLODIPine [Norvasc] 2.5 mg PO HS 05/26/18 Lidocaine 5% Patch [Lidoderm 5% Patch] 1 patch TOPICAL DAILY PRN 03/30/19 Controlled Substance Measures - Controlled Substance Measures Is patient prescribed a controlled substance at discharge?: No
== END ==
LOC: PNWHC3 12:40
PROVIDERS: ATTEND Specialist
DX: M47.816 Spondylosis without myelopathy or radiculopathy, lumbar region (principal); M46.96 Unspecified inflammatory spondylopathy, lumbar region; M46.1 Sacroiliitis, not elsewhere classified; M79.18 Myalgia, other site; Z79.899 Other long term (current) drug therapy; Z79.1 Long term (current) use of non-steroidal anti-inflammatories (NSAID)
CPT/HCPCS: 99211

== ENCOUNTER → 2019-04-29 | Outpatient (CLI) | payer MEDICARE, OTHER ==
[2019-04-29 16:53] LABS: Chol/HDL Ratio 2.25
== END | disposition home or self-care (01) ==
LOC: LABWHC1 09:06
PROVIDERS: ATTEND Nurse Practitioner
DX: E78.5 Hyperlipidemia, unspecified (principal)
CPT/HCPCS: 36415; 80061

== ENCOUNTER → 2019-06-22 | Outpatient (CLI) | payer MEDICARE, OTHER ==
[2019-06-22 12:51] VITALS: BP 143/80; PULSE 74; RESP 16
--- NOTE | 2019-06-25 09:22 | P.PAINPG ---
Subjective Progress Note Date: 06/22/19 This is a follow-up visit for this 63 year old female with a chronic history of severe low back pain, patient diagnosed with lumbar degenerative disc disease of lumbar bulging disc disease, lumbar spondylosis, and sacroiliitis, we have done radiofrequency ablation of the sacroiliac joint previously, and patient gets excellent pain relief, she last underwent a lumbar epidural steroid injection on 03/02/2019 with good benefit. currently she has no significant pain complaints, she has tolerable pain in the right lateral and posterior thigh. she is able to do housework and walk on a treadmill. She continues to have right sided toe numbness, in a nondermatomal distribution. She denies any new onset motor or sensory deficit, patient currently on Motrin 800 mg every 6 hours and Flexeril 10 mg every 8 hours, she denies any side effects of the medication she denies any excessive drowsiness or sleepiness, and she is getting prescription refills from her primary care. Review of systems is negative for chest pain, shortness of breath, new onset weakness, numbness/tingling, abdominal pain, malaise, fever, night sweats, chills, homicidal or suicidal ideation, or bowel or bladder incontinence. Objective Physical exam: Vitals: Reviewed in EMR GENERAL: Well appearing, in no acute distress PSYCH: Mood and affect is appropriate. Awake, alert, and oriented SKIN: Skin color, texture, turgor normal, no rashes or lesions HEENT: Normocephalic, atraumatic. EOM intact CV: No pedal edema RESP: Respirations are unlabored, no audible wheezing GI: Abdomen non-distended MUSCULOSKELETAL: Bilateral lower extremity strength is normal and symmetric. No atrophy or tone abnormalities are noted. Lumbar spine: Straight leg raising in the sitting position is negative for radicular pain. Tenderness to palpation over the lumbar spine and paraspinous muscles on the right side. Negative for pain with facet loading and back extension/rotation. Buttocks: Mild tenderness to palpation over the right PSIS, right sided Rayne test is mildly positive Extremities: Peripheral joint ROM is full and pain free without obvious instability or laxity in all four extremities. No edema or skin discolorations noted. Gait: Gait is normal NEUR: Bilateral lower extremity coordination and muscle stretch reflexes are physiologic and symmetric. Negative clonus bilaterally. No loss of sensation is noted. Assessment and Plan Plan: Assessment and plan= lumbar spondylosis, lumbar facet arthropathy, sacroiliitis , myofascial pain syndrome lumbar area Pain improved after interventional pain procedures , (LESI , RFA of the SI joints ) Recommend to continue Flexeril 10 mg every 8 hours , and continue Motrin when necessary patient can get these refills from primary care physician she will follow up with the pain clinic when necessary She was provided an exercise sheet handout for lumbar stretching and strengthening exercises Objective - Vital Signs Vital signs: Vital Signs Temp Pulse 74 06/22/19 12:46 Resp 16 06/22/19 12:46 BP 143/80 06/22/19 12:46 Pulse Ox PQRS Measure Charge Sheet Measure #130: Documentation of Current Meds in Medical Chart: Patient's medications documented in chart Measure #226: Tobacco Use: Screen & Cessation Intervention: Pt not a tobacco user Measure #111: Pneumonia Vaccination: Pneumococcal vaccine NOT administered or previously given Measure #47: Advance Care Plan: Advance care planning discussed & documented, pt chose/unable to give Measure #412: Opioid Treatment Agreement: No documentation of signed opioid treatment agreement Measure #317: Preventitive Care & Scrn High Bld Press & F/U: Pre-hypertensive or hypertensive BP documented, pt will f/u with PCP Measure #128: Body Mass Index (BMI) Screening & Follow-up: BMI documented within normal parameters Measure #131: Pain Assessment & Follow-up: Pain positive & plan documented, Follow-up scheduled, Follow-up PRN Measure #431: Unhealthy Alcohol Use Preventative Care & Scrn: Patient not id entified as an unhealthy alcohol user PQRS Narrative: Smoking Status Never smoker Narcotic Agreement Date Signed 12/09/17 Blood Pressure 143/80 Pain Intensity [Left Back] 0 Pain Intensity [Right Back] 0 Scale Used Numeric (1 - 10) Hx Alcohol Use (MH) Yes: OCC. Home Medications: Ambulatory Orders Atenolol [Tenormin] 25 mg PO BID 11/20/13 Levothyroxine Sodium [Synthroid] 25 mcg PO QAM 11/20/13 ALPRAZolam [Xanax] 0.25 mg PO HS PRN 12/09/17 Cyclobenzaprine [Flexeril] 10 mg PO Q8H PRN #90 tab 12/09/17 Biotin 5 mg PO DAILY 10/11/18 [place]-3 Fatty Acids/Fish Oil [Fish Oil 1,000 mg Softgel] 1 cap PO DAILY 05/01/18 Ibuprofen [Motrin] 800 mg PO BID PRN 05/26/18 Omeprazole [PriLOSEC] 40 mg PO DAILY 05/26/18 amLODIPine [Norvasc] 2.5 mg PO HS 05/26/18 Calcium 1 tab PO DAILY 06/16/19 Lidocaine 5% Oint [Xylocaine 5% Oint] 1 applic TOPICAL DIRECTED PRN 06/16/19 Magnesium 1 tab PO DAILY 06/16/19 Controlled Substance Measures - Controlled Substance Measures Is patient prescribed a controlled substance at discharge?: No
== END ==
LOC: PNWHC3 12:07
PROVIDERS: ATTEND Anesthesiology
DX: G89.29 Other chronic pain (principal); M47.816 Spondylosis without myelopathy or radiculopathy, lumbar region; M46.96 Unspecified inflammatory spondylopathy, lumbar region; M46.1 Sacroiliitis, not elsewhere classified; M79.18 Myalgia, other site; Z79.899 Other long term (current) drug therapy; Z79.1 Long term (current) use of non-steroidal anti-inflammatories (NSAID)
CPT/HCPCS: 99211

== ENCOUNTER 2019-07-23 11:45 | Emergency (ER) | payer MEDICARE, OTHER ==
[2019-07-23 11:51] VITALS: TEMP 97.7
[2019-07-23] MEDS ORDERED: ORPHENADRINE 30 MG/ML 2 ML VIAL IM STA (12:13)
[2019-07-23] MEDS ORDERED: methylPREDNISolone SOD SUCCI 125 MG/2 ML VIAL IM ONE (12:13)
[2019-07-23] MEDS ORDERED: MORPHINE SULFATE 4 MG/ML SYRINGE IM STA (12:13)
[2019-07-23] MEDS ORDERED: LIDOCAINE 5% PATCH TOPICAL STA (12:17)
--- NOTE | 2019-07-23 12:25 | ED ---
Back Pain HPI - General Chief Complaint: Back Pain/Injury Stated Complaint: Back pain Time Seen by Provider: 07/23/19 11:59 Source: patient, RN notes reviewed, old records reviewed Limitations: no limitations - History of Present Illness Initial Comments: Patient's a 63-year-old female, who presents emergency department today for evaluation for acute exacerbation of chronic back pain. She reports that over the past few days she's been having some sharp pain down her right leg. She reports she's had this happen before. She states on Saturday she is scheduled to see her pain management doctor and likely receive back injections. Patient states that she's had no fevers or chills. Denies a fall or trauma. Denies any saddle anesthesias. Patient's been taking motrin and using salon pas patches. - Related Data Home Medications Medication Instructions Recorded Confirmed Atenolol [Tenormin] 25 mg PO BID 11/20/13 06/22/19 Levothyroxine Sodium [Synthroid] 25 mcg PO QAM 11/20/13 06/22/19 ALPRAZolam [Xanax] 0.25 mg PO HS PRN 12/09/17 06/22/19 Biotin 5 mg PO DAILY 05/01/18 06/22/19 [place]-3 Fatty Acids/Fish Oil [Fish 1 cap PO DAILY 05/01/18 06/22/19 Oil 1,000 mg Softgel] Omeprazole [PriLOSEC] 40 mg PO DAILY 05/26/18 06/22/19 amLODIPine [Norvasc] 2.5 mg PO HS 05/26/18 06/22/19 Calcium 1 tab PO DAILY 06/16/19 06/22/19 Lidocaine 5% Oint [Xylocaine 5% 1 applic TOPICAL DIRECTED PRN 06/16/19 06/22/19 Oint] Magnesium 1 tab PO DAILY 06/16/19 06/22/19 Meloxicam [Mobic] 1 tab PO BID 07/23/19 07/23/19 Previous Rx's Medication Instructions Recorded Cyclobenzaprine [Flexeril] 10 mg PO Q8H PRN #90 tab 12/09/17 Cyclobenzaprine [Flexeril] 10 mg PO TID #12 tab 07/23/19 Dexamethasone 0.75 mg PO DAILY #12 tab 07/23/19 HYDROcodone/APAP 5-325MG [[place] 1 tab PO Q6HR PRN 3 Days #12 tab 07/23/19 5-325] Allergies Allergy/AdvReac Type Severity Reaction Status Date / Time bacitracin Allergy Rash/Hives Verified 06/22/19 12:46 Review of Systems ROS Statement: Those systems with pertinent positive or pertinent negative responses have been documented in the HPI. ROS Other: All systems not noted in ROS Statement are negative. Past Medical History Past Medical History: Asthma, Eye Disorder, GERD/Reflux, Hypertension, Osteoarthritis (OA), Thyroid Disorder Additional Past Medical History / Comment(s): chronic back & neck pain-fusion. Glaucoma History of Any Multi-Drug Resistant Organisms: None Reported Past Surgical History: Cholecystectomy, Hysterectomy, Orthopedic Surgery Additional Past Surgical History / Comment(s): neck fusion. jaw surg. back injections. trigger fingers. implant to left eye- pressure pump device-removed, retinol surgery x 2,LT EYE SURGERY X 6; R eye surgery Past Anesthesia/Blood Transfusion Reactions: No Reported Reaction Past Psychological History: Anxiety Smoking Status: Never smoker Past Alcohol Use History: Occasional Past Drug Use History: None Reported - Past Family History Mother Family Medical History: Cancer Brother(s) Family Medical History: Cancer Sister(s) Family Medical History: Cancer General Exam - General Exam Comments Initial Comments: 63 -year-old female. Alert and oriented. Moderate discomfort. Limitations: no limitations General appearance: alert, in no apparent distress Head exam: Present: atraumatic, normocephalic, normal inspection Eye exam: Present: normal appearance, PERRL, EOMI. Absent: scleral icterus, conjunctival injection, periorbital swelling ENT exam: Present: normal exam, mucous membranes moist Neck exam: Present: normal inspection. Absent: tenderness, meningismus, lymphadenopathy Respiratory exam: Present: normal lung sounds bilaterally. Absent: respiratory distress, wheezes, rales, rhonchi, stridor Cardiovascular Exam: Present: regular rate, normal rhythm, normal heart sounds. Absent: systolic murmur, diastolic murmur, rubs, gallop, clicks GI/Abdominal exam: Present: soft, normal bowel sounds. Absent: distended, tenderness, guarding, rebound, rigid Extremities exam: Present: normal inspection, full ROM, normal capillary refill. Absent: tenderness, pedal edema, joint swelling, calf tenderness Back exam: Present: normal inspection, full ROM, tenderness (She has some right- sided sciatic notch tenderness. Normal pulses bilaterally. No bruising.) Neurological exam: Present: alert Psychiatric exam: Present: normal affect, normal mood Skin exam: Present: warm, dry, intact, normal color. Absent: rash Course Vital Signs 07/23/19 11:49 Temperature 97.7 F Pulse Rate 85 Respiratory 19 Rate Blood Pressure 152/80 O2 Sat by Pulse 99 Oximetry Medical Decision Making - Medical Decision Making Dizzy for old female presents today for acute exacerbation of chronic back pain. Ration of the right leg. This time Patient has been given IM pain medication. No falls or trauma or saddle anesthesias. She is given a lidocaine patch as well. She does state she is to follow-up with pain management on Saturday. Discussed treatment for acute pack a muscle spasm with muscle relaxers and temperature meds and a short course of pain medicine. Discussed she can follow- up with her paint booth operator on Saturday. All questions were answered return parameters were discussed. Disposition Clinical Impression: Sciatica, Lumbar back pain Disposition: HOME SELF-CARE Condition: Good Instructions (If sedation given, give patient instructions): Acute Low Back Pain (ED) Additional Instructions: Patient has a follow-up with your laboratory technical specialist and pain management. Return to emergency department if any alarming signs or symptoms occur. Prescriptions: Dexamethasone 0.75 mg PO DAILY #12 tab Cyclobenzaprine [Flexeril] 10 mg PO TID #12 tab HYDROcodone/APAP 5-325MG [[place] 5-325] 1 tab PO Q6HR PRN 3 Days #12 tab PRN Reason: Pain Is patient prescribed a controlled substance at d/c from ED?: Yes If prescribed controlled substance>3 days was MAPS reviewed?: Prescribed <3 Days If opioid is for acute pain is fill amount 7 days or less?: Yes If Rx opioid, was Start Talking consent form obtained?: Yes Referrals: Deepa Rachel MD [Primary Care Provider] - 1-2 days Time of Disposition: 12:23
[2019-07-23 13:24] VITALS: BP 149/78; PULSE 80; RESP 20
== END 2019-07-23 13:30 | disposition home or self-care (01) ==
LOC: EC 11:45
DX: M54.40 Lumbago with sciatica, unspecified side (principal); G89.29 Other chronic pain; I10 Essential (primary) hypertension; F41.9 Anxiety disorder, unspecified; K21.9 Gastro-esophageal reflux disease without esophagitis; Z79.890 Hormone replacement therapy; Z79.1 Long term (current) use of non-steroidal anti-inflammatories (NSAID); Z79.899 Other long term (current) drug therapy; Z88.1 Allergy status to other antibiotic agents; Z98.1 Arthrodesis status
CPT/HCPCS: 99283; 96372 ×3; J2270; J2360; J2930

== ENCOUNTER → 2019-07-27 | Outpatient (CLI) | payer MEDICARE, OTHER ==
[2019-07-27 13:46] VITALS: BP 148/67; PULSE 79; RESP 16
--- NOTE | 2019-07-29 14:03 | P.PAINPG ---
Subjective Progress Note Date: 07/27/19 This is a follow-up visit for this 63 year old female with a chronic history of severe low back pain, patient diagnosed with lumbar degenerative disc disease of lumbar bulging disc disease, lumbar spondylosis, and sacroiliitis, we have done radiofrequency ablation of the sacroiliac joint previously, and patient gets excellent pain relief, she last underwent a lumbar epidural steroid injection on 03/02/2019 with good benefit, lasting about 4 months. Unfortunately, on 07/23/2019, the patient experienced significant low back pain, radiating to right lateral thigh, up to knee. She also has mild tailbone pain. She believes this may have been related to pushing her grandsons tricycle. She was evaluated in the emergency room for this and given steroids, morphine and a muscle relaxant. She was also written for [place] 11/3256 tablets, she has used 2 tablets so far. Her pain improved with this and is currently rated 3/10, reduced from 10/10. She completed her steroid Dosepak today. Pain is worse with sitting, trying to get out of a chair, better with repositioning. She states that this pain is similar to her prior episodes of pain. She does have chronic numbness and tingling in the right calf, she attributes this to vein stripping surgery. She denies any new onset motor or sensory deficit, patient currently on Mobic 7.5 mg twice a day and Flexeril 10 mg every 8 hours, she denies any side effects of the medication she denies any excessive drowsiness or sleepiness. Review of systems is negative for chest pain, shortness of breath, new onset weakness, numbness/tingling, abdominal pain, malaise, fever, night sweats, chills, homicidal or suicidal ideation, or bowel or bladder incontinence. Objective Physical exam: Vitals: Reviewed in EMR GENERAL: Well appearing, in no acute distress PSYCH: Mood and affect is appropriate. Awake, alert, and oriented SKIN: Skin color, texture, turgor normal, no rashes or lesions HEENT: Normocephalic, atraumatic. EOM intact CV: No pedal edema RESP: Respirations are unlabored, no audible wheezing GI: Abdomen non-distended MUSCULOSKELETAL: Bilateral lower extremity strength is normal and symmetric. No atrophy or tone abnormalities are noted. Lumbar spine: Straight leg raising in the sitting position is negative for radicular pain. Tenderness to palpation over the lumbar spine and paraspinous muscles on the right side. Negative for pain with facet loading and back extension/rotation. Extremities: Peripheral joint ROM is full and pain free without obvious instability or laxity in all four extremities. No edema or skin discolorations noted. Gait: Gait is normal NEUR: Bilateral lower extremity coordination and muscle stretch reflexes are physiologic and symmetric. Negative clonus bilaterally. Reduced sensation to light touch noted in right calf. Assessment and Plan Plan: Assessment and plan= lumbar spondylosis, lumbar facet arthropathy, sacroiliitis , lumbar radicular pain, lumbar degenerative disc disease Pain improved after interventional pain procedures , (LESI , RFA of the SI joints ) Recommend to continue Flexeril 10 mg every 8 hours , and continue Mobic 7.5 mg twice a day We will schedule right paramedian L4-5 epidural steroid injection, as patient has benefited from the significantly in the past PQRS Measure Charge Sheet Measure #130: Documentation of Current Meds in Medical Chart: Patient's medications documented in chart Measure #226: Tobacco Use: Screen & Cessation Intervention: Pt not a tobacco user Measure #111: Pneumonia Vaccination: Pneumococcal vaccine NOT administered or previously given Measure #47: Advance Care Plan: Advance care planning discussed & documented, pt chose/unable to give Measure #412: Opioid Treatment Agreement: No documentation of signed opioid treatment agreement Measure #317: Preventitive Care & Scrn High Bld Press & F/U: Pre-hypertensive or hypertensive BP documented, pt will f/u with PCP Measure #128: Body Mass Index (BMI) Screening & Follow-up: BMI documented within normal parameters Measure #131: Pain Assessment & Follow-up: Pain positive & plan documented, Follow-up scheduled Measure #431: Unhealthy Alcohol Use Preventative Care & Scrn: Patient not identified as an unhealthy alcohol user PQRS Measure Charge Sheet PQRS Narrative: Smoking Status Never smoker Narcotic Agreement Date Signed 12/09/17 Pain Intensity [Right Lower 2 Back] Scale Used Numeric (1 - 10) Hx Alcohol Use (MH) Yes: OCCASIONAL Home Medications: Ambulatory Orders Atenolol [Tenormin] 25 mg PO BID 11/20/13 Levothyroxine Sodium [Synthroid] 25 mcg PO QAM 11/20/13 ALPRAZolam [Xanax] 0.25 mg PO HS PRN 12/09/17 Cyclobenzaprine [Flexeril] 10 mg PO Q8H PRN #90 tab 12/09/17 Biotin 5 mg PO DAILY 05/01/18 [place]-3 Fatty Acids/Fish Oil [Fish Oil 1,000 mg Softgel] 1 cap PO DAILY 05/01/18 Omeprazole [PriLOSEC] 40 mg PO DAILY 05/26/18 amLODIPine [Norvasc] 2.5 mg PO HS 05/26/18 Calcium 1 tab PO DAILY 06/16/19 Magnesium 1 tab PO DAILY 06/16/19 Dexamethasone 0.75 mg PO DAILY #12 tab 07/23/19 HYDROcodone/APAP 5-325MG [[place] 5-325] 1 tab PO Q6HR PRN 3 Days #12 tab 07/23/19 Ibuprofen 600 mg PO BID 07/24/19 Controlled Substance Measures - Controlled Substance Measures Is patient prescribed a controlled substance at discharge?: No
== END | disposition home or self-care (01) ==
LOC: PNWHC3 12:42
PROVIDERS: ATTEND Anesthesiology
DX: M47.26 Other spondylosis with radiculopathy, lumbar region (principal); M51.16 Intervertebral disc disorders with radiculopathy, lumbar region; M46.96 Unspecified inflammatory spondylopathy, lumbar region; M46.1 Sacroiliitis, not elsewhere classified; Z79.891 Long term (current) use of opiate analgesic; Z79.899 Other long term (current) drug therapy
CPT/HCPCS: 99211

== ENCOUNTER 2019-08-04 08:57 | Day surgery (SDC) | payer MEDICARE, OTHER ==
[2019-07-30 16:01] VITALS: BMI 23.8
[~2019-08-04 08:57] MED LIST changes: +IOPAMIDOL M200 10 ML VIAL ONE; -IV FLUID CONTINUATION 1,000 ML IV ONE; -LIDOCAINE 1% 20 ML VIAL (10MG/ML) FOR IV START INTRADERMA ONE; +MIDAZOLAM 2 MG/2 ML VIAL ONE; +fentaNYL (PF) 50 MCG/ML 2 ML AMP ONE; +methylPREDNISolone ACETATE 40 MG/ML 1 ML VIAL ONE
[2019-08-04 10:09] VITALS: TEMP 98.3
--- NOTE | 2019-08-04 11:21 | P.PCN ---
Date of Procedure: 08/04/19 Procedure(s) Performed: PREOPERATIVE DIAGNOSIS: 1- Lumbar Degenerative Disc Diseases 2-Lumbar spondylosis with Facet arthropathy without myelopathy 3-lumbar radiculopathy POSTOPERATIVE DIAGNOSIS: 1-Lumber Degenerative Disc Diseases 2-Lumbar spondylosis with Facet arthropathy without myelopathy. 3-lumbar radiculopathy PROCEDURE 1. Lumbar epidural steroid injection under fluoroscopic guidance at the L4-5 level. (Right paramedian approach) (Fluoroscopy imaging was available in radiology department) 2. Lumbar epidurogram. ANESTHESIA: Local with 1% lidocaine 3 ml and , moderate sedation with intravenous Versed 2 mg ,and fentanyle 100 Mcg EBL: Minimal PROCEDURE INDICATION: The patient with low back pain and radiculitis symptoms unresponsive to conservative treatment. Fluoroscopy was used to optimize visualization of the needle placement and to maximize safety. PROCEDURE DESCRIPTION / TECHNIQUE: The patient was seen and identified in the preoperative area. Risks, benefits, complications including but not limited to infections ,bleeding ,allergic reaction to the medications ,nerve damage and not complete pain releife , and alternatives were discussed with the patient. The patient agreed to proceed with the procedure and signed the consent. IV was started, and vital signs were stable. Patient was taken to the OR and time out was completed. The patient was placed in the prone position on procedure table and a pillow was placed under the abdomen to reduce lumbar lordosis. The lumbosacral area was prepped and draped in the usual sterile fashion.ere closely monitored during the procedure. Conscious sedation was used during the procedure to decrease patients anxiety. Vital signs was monitered during the entire procedure. Using anterior-posterior fluoroscopy, the L4-5interlaminar space was identified and the skin over this site was marked and then infiltrated with 1% lidocaine subcutaneously. Subsequently, a 20-gauge Tuohy epidural needle was inserted and advanced toward the epidural space using the ``Loss of resistance technique and guided by AP and lateral fluoroscopy. The correct needle position in the epidural space was verified with the injection of 2 mL of the water soluble contrast dye Isovue 200 contrast and observing an excellent epidurogram with the epidural spread of the dye, after negative aspiration for blood and CSF and in the absence of paresthesias. Again after negative aspiration, a 6 ml mixture containing 40 mg of Depo-medrol , and 2 ml of preservative free Normal Saline, and 2 ml of preservative free lidocaine 1% solution was injected and a washout of epidurogram was seen. Needle was withdrawn intact, skin was cleansed, and bandages were applied. COMPLICATIONS: None DISPOSITION / PLANS: The patient was placed in a supine position and transferred to the recovery area in a stable condition for observation. There was no evidence of lower extremity motor or sensory deficit after the procedure. Patient was discharged from the recovery room after meeting discharge criteria. Home discharge instructions were given to the patient by the staff. The patient was reexamined prior to discharge. The patient will schedule a follow up in the clinic in 2-4 weeks.
[2019-08-04 11:32] VITALS: RESP 16
[2019-08-04 11:48] VITALS: BP 144/68; PULSE 76
[2019-08-04] MEDS ORDERED: IV FLUID CONTINUATION 1,000 ML IV ONE (11:53)
--- NOTE | 2019-08-04 11:59 | FL ---
Fluoroscopy HISTORY: Pain 5 seconds fluoroscopy time supplied to the referring clinician. 1 intraoperative C-arm images docume nt the procedure. See dictated report from anesthesia.
== END 2019-08-04 12:15 | disposition home or self-care (01) ==
LOC: ORPAIN 08:57
PROVIDERS: ATTEND Specialist
DX: M51.16 Intervertebral disc disorders with radiculopathy, lumbar region (principal); M47.26 Other spondylosis with radiculopathy, lumbar region; I10 Essential (primary) hypertension; Z88.1 Allergy status to other antibiotic agents
CPT/HCPCS: 62323; J2250; J1030; J3010; Q9966; 99152

== ENCOUNTER → 2019-08-17 | Outpatient (CLI) | payer MEDICARE, OTHER ==
[2019-08-17 14:20] VITALS: BP 131/78; PULSE 76; RESP 16
--- NOTE | 2019-08-17 14:47 | P.PAINPG ---
Subjective Progress Note Date: 08/17/19 This is a follow-up visit for this 62 years old female with a chronic history of severe low back pain, patient diagnosed with lumbar degenerative disc disease of lumbar bulging disc disease, lumbar spondylosis, and sacroiliitis, she responded very well to interventional pain management, she continued to have muscle spasm in the lumbar area , she denies any motor or sensory deficit, patient currently on [place] 5/325 to 6 hours when necessary ,Mobic and Flexeril 10 mg every 8 hours, she denies any side effect of the medication she denies any excessive drowsiness or sleepiness, and she is getting prescription refills from her primary care Objective - Vital Signs Vital signs: Vital Signs Temp Pulse 76 08/17/19 14:14 Resp 16 08/17/19 14:14 BP 131/78 08/17/19 14:14 Pulse Ox 96 08/17/19 14:14 - Exam Physical Examinations : -Constitutiona : Cooperative , not in acute distress . -HEENT : nech : supple , no Lymphadenopathy , normal thyroid size . : eyes : no ptosis , no icterus, no photophobia . - neurologic : Cranial nerve II to XII intact , no focal neurological deffecit . -psychatric : alert , oriented X 3 , appropriate affect , intact judgment and insight . -Lymphatic : no Lymphadenopathy . - musculoskeltal : Lumber spine moter stegnth lower extremities ,thigh and legs 5/5 Right side , 5/5 Left side Assessment and Plan Plan: Assessment and plan= chronic low back pain secondary to lumbar degenerative disc diseas , lumbar spondylosis with lumbar facet arthropathy ,and sacroiliitis. Lumbar radiculopathy Pain improved after lumbar epidural steroid injection MAPS Reviwed and it was apropriate . Medication managements= patient will be given prescription refills for Flexeril 10 mg every 8 hours when necessary dispense 60 with 5 refills and she will follow up in the pain clinic when necessary , Time with Patient: Less than 30 PQRS Measure Charge Sheet Measure #130: Documentation of Current Meds in Medical Chart: Patient's medications documented in chart Measure #226: Tobacco Use: Screen & Cessation Intervention: Pt not a tobacco user Measure #111: Pneumonia Vaccination: Pneumococcal vaccine NOT administered or previously given Measure #47: Advance Care Plan: Advance care planning discussed & documented, pt chose/unable to give Measure #412: Opioid Treatment Agreement: No documentation of signed opioid treatment agreement Measure #408: Opioid Therapy Follow-up Evaluation: Patient had NO f/u eval minimum every 3 months during opioid therapy Measure #317: Preventitive Care & Scrn High Bld Press & F/U: Normal blood pressure, f/u not required Measure #128: Body Mass Index (BMI) Screening & Follow-up: BMI documented within normal parameters Measure #131: Pain Assessment & Follow-up: Pain positive & plan documented, Follow-up scheduled Measure #431: Unhealthy Alcohol Use Preventative Care & Scrn: Patient not identified as an unhealthy alcohol user PQRS Narrative: Smoking Status Never smoker Narcotic Agreement Date Signed 12/09/17 Blood Pressure 131/78 Pain Intensity [Right Lower 0 Back] Scale Used Numeric (1 - 10) Hx Alcohol Use (MH) Yes: OCC. Home Medications: Ambulatory Orders Atenolol [Tenormin] 25 mg PO BID 11/20/13 Levothyroxine Sodium [Synthroid] 25 mcg PO QAM 11/20/13 ALPRAZolam [Xanax] 0.25 mg PO HS PRN 12/09/17 Cyclobenzaprine [Flexeril] 10 mg PO Q8H PRN #90 tab 12/09/17 Biotin 5 mg PO DAILY 05/01/18 [place]-3 Fatty Acids/Fish Oil [Fish Oil 1,000 mg Softgel] 1 cap PO DAILY 05/01/18 Omeprazole [PriLOSEC] 40 mg PO DAILY 05/26/18 amLODIPine [Norvasc] 2.5 mg PO HS 05/26/18 Calcium 1 tab PO DAILY 06/16/19 Magnesium 1 tab PO DAILY 06/16/19 HYDROcodone/APAP 5-325MG [[place] 5-325] 1 tab PO Q6HR PRN 3 Days #12 tab 07/23/19 Ibuprofen 600 mg PO BID PRN 07/24/19 Meloxicam [Mobic] 7.5 mg PO DAILY PRN 07/30/19 Controlled Substance Measures - Controlled Substance Measures Is patient prescribed a controlled substance at discharge?: No
== END | disposition home or self-care (01) ==
LOC: PNWHC3 13:23
PROVIDERS: ATTEND Specialist
DX: G89.29 Other chronic pain (principal); M51.16 Intervertebral disc disorders with radiculopathy, lumbar region; M47.26 Other spondylosis with radiculopathy, lumbar region; M46.96 Unspecified inflammatory spondylopathy, lumbar region; M46.1 Sacroiliitis, not elsewhere classified; Z79.899 Other long term (current) drug therapy
CPT/HCPCS: 99211

== ENCOUNTER → 2019-08-24 | Outpatient (CLI) | payer MEDICARE, OTHER ==
--- NOTE | 2019-08-25 11:18 | MM ---
Reason for exam: screening (asymptomatic). Last mammogram was performed 1 year and 3 months ago. History: Patient is postmenopausal. Family history of breast cancer in mother at age 55. Benign excisional biopsy of the left breast, 2001. Took estrogen for 18 years beginning at age 32. Physical Findings: A clinical breast exam by your physician is recommended on an annual basis and results should be correlated with mammographic findings. MG 3D Screening Mammo W/Cad Bilateral CC and MLO view(s) were taken. Prior study comparison: May 26, 2018, bilateral MG 3d screening mammo w/cad. July 05, 2016, bilateral MG 3d diag mammo w/cad SARAH. There are scattered fibroglandular densities. There is no discrete abnormality. ASSESSMENT: Negative, BI-RAD 1 RECOMMENDATION: Routine screening mammogram of both breasts in 1 year.
== END | disposition home or self-care (01) ==
LOC: RADMAMWWP 07:49
PROVIDERS: ATTEND Obstetrics & Gynecology
DX: Z12.31 Encounter for screening mammogram for malignant neoplasm of breast (principal)
CPT/HCPCS: 77063; 77067

== ENCOUNTER → 2020-01-04 | Outpatient (CLI) | payer MEDICARE, OTHER ==
--- NOTE | 2020-01-04 09:47 | FL ---
EXAMINATION: Cervical and Thoracic Esophagram DATE OF EXAM: 01/04/2020 CLINICAL INDICATION: 64-year-old female R13.10, dysphagia. Dry foods getting stuck in her throat for the last couple months. COMPARISON: None Total Fluoroscopy Time: 2 minutes 20 seconds Total images: 38 FINDINGS: Post surgical changes of C5-C6 ACDF. No prevertebral soft tissue swelling or significant anterior end plate spondylosis. The swallowing mechanism is normal and hypopharyngeal anatomy is preserved. No di verticulum or web is identified. The cervical and thoracic portions have a normal course and caliber. Mild diffuse tertiary peristaltic waves are demonstrated. Secondary stripping waves are markedly blun bruce. When the patient is supine, this results in prolonged pooling of contrast along the upper half o f the esophagus with episodes of intraesophageal reflux into the hypopharyngeal region. The mucosa is normal and no persistent filling defect is encountered. No hiatal hernia is present. No gastroesophageal reflux is identified. IMPRESSION: 1. Early changes of presbyesophagus with blunted secondary stripping waves and mild generalized terti prachi peristalsis. When the patient is supine, there is prolonged pooling of contrast in the upper half of the esophagus with episodes of intraesophageal reflux up into the hypopharynx. 2. No hiatal hernia or gastroesophageal reflux identified. 3. No web or diverticulum identified within the cervical esophagus. No suspicious mucosal lesion.
== END | disposition home or self-care (01) ==
LOC: RADUSWWP 08:29
PROVIDERS: ATTEND Otolaryngology
DX: K21.9 Gastro-esophageal reflux disease without esophagitis (principal); K22.8 Other specified diseases of esophagus
CPT/HCPCS: 74220

== ENCOUNTER 2020-02-23 09:32 | Day surgery (SDC) | payer MEDICARE, OTHER ==
[2020-02-18 14:17] VITALS: BMI 24.5
[~2020-02-23 09:32] MED LIST changes: -IOPAMIDOL M200 10 ML VIAL ONE; -MIDAZOLAM 2 MG/2 ML VIAL ONE; -fentaNYL (PF) 50 MCG/ML 2 ML AMP ONE; -methylPREDNISolone ACETATE 40 MG/ML 1 ML VIAL ONE
[2020-02-23 10:09] VITALS: RESP 16; TEMP 97.7
[2020-02-23] MEDS ORDERED: LIDOCAINE 1% (10MG/ML) FOR IV START INTRADERMA ONE (10:20)
[2020-02-23] MEDS ORDERED: PROPOFOL 10 MG/ML 20 ML VIAL IV ONE (11:06)
[2020-02-23] MEDS ORDERED: LIDOCAINE 1% INJ 10MG/ML (20 ML MDV) ONE (11:06)
--- NOTE | 2020-02-23 11:14 | P.GSHP ---
History of Present Illness H&P Date: 02/23/20 Chief Complaint: Dysphagia Patient here today for upper endoscopy. Has had complaints of worsening dysphagia. Had emesis of food material at least on one occasion. Recent upper GI shows evidence of esophageal dysmotility. No obstruction seen. Chronic reflux. Past Medical History Past Medical History: Asthma, Eye Disorder, GERD/Reflux, Hypertension, Osteoarthritis (OA), Thyroid Disorder Additional Past Medical History / Comment(s): current dysphagia, chronic back & neck pain-. Glaucoma, blind in left eye History of Any Multi-Drug Resistant Organisms: None Reported Past Surgical History: Cholecystectomy, Hysterectomy, Orthopedic Surgery Additional Past Surgical History / Comment(s): neck fusion. jaw surg. back injections. trigger fingers. implant to left eye- pressure pump device-removed, retinol surgery x 2,LT EYE SURGERY X 6; R eye surgery-implant for fluid drainage Past Anesthesia/Blood Transfusion Reactions: No Reported Reaction Smoking Status: Never smoker - Past Family History Mother Family Medical History: Cancer Brother(s) Family Medical History: Cancer Sister(s) Family Medical History: Cancer Medications and Allergies Home Medications Medication Instructions Recorded Confirmed Type Levothyroxine Sodium [Synthroid] 25 mcg PO QAM 11/20/13 02/18/20 History atenoloL [Tenormin] 25 mg PO BID 11/20/13 02/18/20 History ALPRAZolam [Xanax] 0.25 mg PO HS PRN 12/09/17 02/18/20 History Biotin 5 mg PO DAILY 05/01/18 02/18/20 History [place]-3 Fatty Acids/Fish Oil [Fish 1 cap PO DAILY 05/01/18 02/18/20 History Oil 1,000 mg Softgel] Omeprazole [PriLOSEC] 40 mg PO DAILY 05/26/18 02/18/20 History amLODIPine [Norvasc] 2.5 mg PO HS 05/26/18 02/18/20 History Ibuprofen 600 mg PO BID PRN 07/24/19 02/18/20 History Acyclovir [Zovirax] 400 mg PO DIRECTED PRN 02/18/20 02/18/20 History Albuterol Sulfate [Proair Hfa] 1 - 2 puff INHALATION Q6HR PRN 02/18/20 02/18/20 History Calcium Carbonate [Calcium] 600 mg PO DAILY 02/18/20 02/18/20 History Cholecalciferol [Vitamin D3 (25 2,000 unit PO DAILY 02/18/20 02/18/20 History Mcg = 1000 Iu)] Cyclobenzaprine [Flexeril] 10 mg PO HS PRN 02/18/20 02/18/20 History Eszopiclone [Lunesta] 3 mg PO HS PRN 02/18/20 02/18/20 History Niacin 250 mg PO DAILY 02/18/20 02/18/20 History Allergies Allergy/AdvReac Type Severity Reaction Status Date / Time bacitracin Allergy BLISTERS Verified 02/23/20 10:15 Surgical - Exam Vital Signs Temp Pulse Resp BP Pulse Ox 97.7 F 72 16 156/72 100 02/23/20 10:08 02/23/20 10:08 02/23/20 10:08 02/23/20 10:08 02/23/20 10:08 Physical exam: General: Well-developed, well-nourished HEENT: Normocephalic, sclerae nonicteric Abdomen: Nontender, nondistended Extremities: No edema Neuro: Alert and oriented Assessment and Plan (1) Dysphagia Narrative/Plan: Will proceed with upper endoscopy. Current Visit: Yes Status: Acute Code(s): R13.10 - DYSPHAGIA, UNSPECIFIED SNOMED Code(s): 82061803
--- NOTE | 2020-02-23 11:19 | P.PCN ---
Date of Procedure: 02/23/20 Procedure(s) Performed: Preoperative Dx: Dysphagia, reflux Postoperative Dx: Small sliding hiatal hernia, mild gastritis Procedure: EGD with Bx Anesthesia: Sedation Endoscopist: Dr. Rachel Specimens: Antrum Endoscopic Procedure: The patient was on the endoscopy table in the left decubitus position. The Olympus gastroscope was inserted into the oropharynx and passed under direct visualization to the region of the third portion of the duodenum. From that point the scope was slowly withdrawn inspecting all surfaces carefully. There were no neoplastic inflammatory or polypoid lesions throughout the duodenum. The pylorus was widely patent. The stomach was carefully inspected. There was mild gastritis. A biopsy of the antrum took place to rule out H. pylori. Retroflexion revealed a small sliding hiatal hernia. No esophagitis or stricture was noted. No obstructing lesions were present. The patient was then taken to the recovery room in stable condition per anesthesia guidelines. Recommendations: Continue antiacid therapy. Continue workup/treatment of the patient's esophageal dysmotility.
[2020-02-23 11:38] VITALS: BP 120/65; PULSE 65
== END 2020-02-23 12:00 | disposition home or self-care (01) ==
LOC: ORWHC2ENDO 09:32
PROVIDERS: ATTEND Surgery
DX: K21.9 Gastro-esophageal reflux disease without esophagitis (principal); K22.4 Dyskinesia of esophagus; K29.50 Unspecified chronic gastritis without bleeding; K44.9 Diaphragmatic hernia without obstruction or gangrene; J45.909 Unspecified asthma, uncomplicated; I10 Essential (primary) hypertension; M19.90 Unspecified osteoarthritis, unspecified site; E07.9 Disorder of thyroid, unspecified; F41.9 Anxiety disorder, unspecified; G89.29 Other chronic pain; M54.9 Dorsalgia, unspecified; M54.2 Cervicalgia; H40.9 Unspecified glaucoma; H54.62 Unqualified visual loss, left eye, normal vision right eye; Z90.49 Acquired absence of other specified parts of digestive tract; Z90.710 Acquired absence of both cervix and uterus; Z98.1 Arthrodesis status; Z98.890 Other specified postprocedural states; Z79.1 Long term (current) use of non-steroidal anti-inflammatories (NSAID); Z79.890 Hormone replacement therapy; Z79.899 Other long term (current) drug therapy; Z88.8 Allergy status to other drugs, medicaments and biological substances
CPT/HCPCS: 88305; 43239; J2001; J2704

== ENCOUNTER → 2020-05-25 | Outpatient (CLI) | payer MEDICARE, OTHER ==
[2020-05-25 21:01] LABS: African American GFR (CKD) 89.7 (60.0-200.0); Anion Gap 7.8 mmol/L (4.00-12.00); BUN/Creat Ratio 17.5 Ratio (12.00-20.00); Carbon Dioxide 28.2 mmol/L (21.6-31.8); Non-African American GFR(CKD) 77.4 (60.0-200.0); Potassium 4.6 mmol/L (3.5-5.5)
== END | disposition home or self-care (01) ==
LOC: LABWHC1 11:44
PROVIDERS: ATTEND Nurse Practitioner
DX: E87.5 Hyperkalemia (principal)
CPT/HCPCS: 36415; 80048; 83735

== ENCOUNTER → 2020-08-24 | Outpatient (CLI) | payer MEDICARE, OTHER ==
--- NOTE | 2020-08-24 14:39 | MM ---
Reason for exam: additional evaluation requested from prior study. Last mammogram was performed 1 year ago. History: Patient is postmenopausal. Family history of breast cancer in mother at age 55. Benign excisional biopsy of the left breast, 2001. Took estrogen for 18 years beginning at age 32. Physical Findings: Nurse did not find any significant physical abnormalities on exam. MG 3D Diag Mammo W/Cad SARAH Bilateral CC and MLO view(s) were taken. Prior study comparison: August 24, 2019, bilateral MG 3d screening mammo w/cad. May 26, 2018, bilateral MG 3d screening mammo w/cad. There are scattered fibroglandular densities. There is no discrete abnormality. These results were verbally communicated with the patient and result sheet given to the patient on 08/24/20. ASSESSMENT: Incomplete: need additional imaging evaluation, BI-RAD 0 RECOMMENDATION: Ultrasound of both breasts.
--- NOTE | 2020-08-24 14:40 | USB ---
Reason for exam: additional evaluation requested from abnormal screening. History: Patient is postmenopausal. Family history of breast cancer in mother at age 55. Benign excisional biopsy of the left breast, 2001. Took estrogen for 18 years beginning at age 32. US Breast BILAT Right complete breast ultrasound includes all four quadrants, the retroareolar region and axilla. Finding demonstrates no cystic or solid lesion seen. Left complete breast ultrasound includes all four quadrants, the retroareolar region and axilla. Finding demonstrates no cystic or solid lesion seen. These results were verbally communicated with the patient and result sheet given to the patient on 08/24/20. ASSESSMENT: Negative, BI-RAD 1 RECOMMENDATION: Routine screening mammogram of both breasts in 1 year. Manage patient on a clinical basis.
== END | disposition home or self-care (01) ==
LOC: RADMAMWWP 09:34
PROVIDERS: ATTEND Obstetrics & Gynecology
DX: N63.10 Unspecified lump in the right breast, unspecified quadrant (principal); N63.20 Unspecified lump in the left breast, unspecified quadrant; N64.4 Mastodynia
CPT/HCPCS: 77066; 76641; G0279; 77062

== ENCOUNTER → 2020-08-25 | Outpatient (CLI) | payer MEDICARE, OTHER ==
--- NOTE | 2020-08-25 15:47 | BD ---
EXAMINATION TYPE: Axial Bone Density DATE OF EXAM: 08/25/2020 COMPARISON: 07.01.2018 CLINICAL HISTORY: 64 YR OLD FEMALE.....ICD-10 CODE: M85.9 DISORDER OF BONE Height: 61.8 Weight: 136 FRAX RISK QUESTIONS: Secondary Osteoporosis: YES 3. Menopause before 45: YES RISK FACTORS HISTORY OF: Postmenopausal woman: YES IN HER 30s Take estrogen and/or progesterone medications: YES, FOR ABOUT 15 YRS Hyperparathyroidism: NO Adrenal Insufficiency: NO MEDICATIONS: Thyroid Medications: YES, SYNTHROID, FOR ABOUT 15 YRS Additional Medications: BP MEDS, XANAX, REFLUX MEDS, STATIN FOR CHOLESTEROL, VIT D3, CALCIUM Additional History: HYPERTENSION, REFLUX, CHOLESTEROL EXAM MEASUREMENTS: Bone mineral densitometry was performed using the [employer] System. Bone mineral density as measured about the Lumbar spine is: ----- L1-L4(G/cm2): 1.205 T Score Values are as follows: ----- L1: 0.2 ----- L2: -0.3 ----- L3: -0.5 ----- L4: 1.2 ----- L1-L4: 0.2 Bone mineral density has: Increased 2.8% since study of: 07.01.2018 Bone mineral density about the R hip (g/cm2): 0.923 Bone mineral density about the L hip (g/cm2): 0.845 T Score values are as follows: -----R Neck: -1.5 -----L Neck: -2.0 -----R Total: -0.7 -----L Total: -1.3 Bone mineral density has: Increased 2.2% since study of: 07.01.2018 FRAX%s: THERE IS A 11.2% CHANCE FOR A MAJOR OSTEOPOROTIC FX AND A 1.8% FOR HIP.....PROBABILITY FOR FX IN 10 YRS TIME IMPRESSION: Osteopenia (T Score between -2.5 and -1). There is slightly increased risk of fracture and the patient may be considered for treatment. Re-Screen 2-5 years. NOTE: T-SCORE=SD OF THE YOUNG ADULT MEAN.
== END | disposition home or self-care (01) ==
LOC: RADBDWWP 09:04
PROVIDERS: ATTEND Obstetrics & Gynecology
DX: M85.80 Other specified disorders of bone density and structure, unspecified site (principal)
CPT/HCPCS: 77080

== ENCOUNTER → 2020-08-29 | Outpatient (CLI) | payer MEDICARE, OTHER ==
--- NOTE | 2020-08-29 12:19 | MR ---
EXAMINATION TYPE: MR cervical spine wo/w con DATE OF EXAM: 08/29/2020 COMPARISON: MR cervical spine 02/21/2010 HISTORY: Cervicalgia, history of fusion c5-6, cervical degeneration TECHNIQUE: Multiplanar, multisequence images of the cervical spine were acquired utilizing 6 mL intravenous Gada vist gadolinium contrast. Diffusion weighted imaging was performed. C2-C3: No evidence for degenerative disc disease. No disc bulge/herniation or protrusion. No Canal stenosis. Foramina are patent bilaterally. C3-C4: Uncovertebral joint hypertrophy causes some foraminal encroachment on the right. Posterior ext ension endplate disc complex causes mild anterior mass effect on the thecal sac. C4-C5: Posterior disc bulge causes mild anterior mass effect on the thecal sac. No significant forami nal encroachment. C5-C6: No evidence for degenerative disc disease. No disc bulge/herniation or protrusion. No Canal stenosis. Foramina are patent bilaterally. C6-C7: There is some left-sided foraminal encroachment present. C7-T1: No evidence for degenerative disc disease. No disc bulge/herniation or protrusion. No Canal stenosis. Foramina are patent bilaterally. Cervical segments are intact. There is normal alignment. Cervical spinal cord is of normal signal. Craniovertebral junction relationships are within normal limits. Patient shows anterior cervical fu judi and discectomy change at C5-6 similar to prior exam. There is susceptibility artifact due to pat ient's hardware. No significant spinal stenosis. There is multilevel spondylosis. Loss of disc height signal C3-4, C4-5. No abnormal enhancement following contrast administration. IMPRESSION: Degenerative disc disease as described, there is some associated foraminal encroachment.
== END | disposition home or self-care (01) ==
LOC: RADMRIMAIN 09:01
PROVIDERS: ATTEND Orthopaedic Surgery Orthopaedic Surgery of the Spine
DX: M50.30 Other cervical disc degeneration, unspecified cervical region (principal); Z98.1 Arthrodesis status
CPT/HCPCS: 72156; A9585

== ENCOUNTER → 2020-11-09 | Outpatient (CLI) | payer MEDICARE, OTHER ==
[2020-11-09 21:35] LABS: T4, Free (Free Thyroxine) 1.1 ng/dL (0.80-1.80)
== END | disposition home or self-care (01) ==
LOC: LABWHC1 10:13
PROVIDERS: ATTEND Internal Medicine Interventional Cardiology
DX: I10 Essential (primary) hypertension (principal); R00.2 Palpitations
CPT/HCPCS: 36415; 84439; 84443

== ENCOUNTER → 2021-04-17 | Outpatient (CLI) | payer MEDICARE, OTHER ==
[2021-04-17 16:20] LABS: Basophils # (A) 0.04 X 10*3/uL (0.00-0.10); Eosinophils # (A) 0.06 X 10*3/uL (0.04-0.35); Eosinophils % (A) 1.5 %; HCT 37.7 % (37.2-46.3); HGB 12.8 g/dL (12.0-15.0); Lymphocytes # (A) 1.17 X 10*3/uL (0.90-5.00); Lymphocytes % (A) 29.3 %; MCH 30.8 pg (27.0-32.0); MCV 90.6 fL (80.0-97.0); Monocytes # (A) 0.51 X 10*3/uL (0.20-1.00); Monocytes % (A) 12.8 %; Neutrophils % (A) 55.1 %; Platelet Count 318 X 10*3/uL (140-440); RBC 4.16 X 10*6/uL (4.10-5.20); WBC 3.99 X 10*3/uL (4.50-10.00)
[2021-04-17 19:15] LABS: Albumin/Globulin Ratio 2.08 (1.60-3.17); Anion Gap 9.4 mmol/L (4.00-12.00); Carbon Dioxide 25.6 mmol/L (21.6-31.8); Chol/HDL Ratio 2.88; Globulin 2.4 g/dL (1.6-3.3); LDL Cholesterol,Calculated 85.2 mg/dL (0.0-131.0); Non-African American GFR(CKD) 76.8 (60.0-200.0); Potassium 4.4 mmol/L (3.5-5.5); Total Bilirubin 0.8 mg/dL (0.3-1.2); Total Protein 7.4 g/dL (6.2-8.2); VLDL Calculation 34.8 mg/dL (5.00-40.00)
== END | disposition home or self-care (01) ==
LOC: LABWHC1 08:38
PROVIDERS: ATTEND Family Medicine
DX: E78.00 Pure hypercholesterolemia, unspecified (principal)
CPT/HCPCS: 36415; 80053; 80061; 85025

== ENCOUNTER → 2022-03-19 | Outpatient (CLI) | payer MEDICARE, OTHER ==
[2022-03-19 12:58] VITALS: BP 161/79; PULSE 67; RESP 18; TEMP 98.4
--- NOTE | 2022-03-19 14:28 | P.PAINPG ---
PQRS Measure Charge Sheet Comment: A 66 yr old female with a history of severe and chronic low back pain secondary to lumbar degenerative disc diseases and lumbar spondylosis with facet arthropathy presents today for . Pain level is currently at 6 /10 in intensity, constant, localized in the lower lumbar spine, dull/ achy in character shooting towards the BLEs, R>L. Pain escalates as high as 8/10 is provoked by PT years ago which provoked pain as well as lifting/ twisting/ climbing/ bending. Pain is alleviated with medications (Flexeril, Ibuprofen), chiropractic treatment semi monthly x 8 mo w last visit in January, ice, lidoderm patches, repositioning and rest. Interventional pain procedures completed include DIANE L4-L5, BL RFA L3-5. Patient is currently on Flexeril, Mobic Patient denies any side effects of the medication(s), denies excessive drowsiness or sleepiness, denies suicidal ideation and reports that the current pain medication is helping to control the pain and improve activities of daily living. Patient denies any motor or sensory deficits. Patient denies any fever or night sweats, denies any change in the bowel movements or urination. Physical Examination: -Constitutional: Cooperative. Not in acute distress . - Neurologic: Cranial nerve II to XII intact. No focal neurological deficits. - Psychatric: Alert & oriented x 3. Matching mood & appropriate affect. Judgment and insight intact. - Musculoskeletal: Cervical spine: Muscle bulk/ tone/ strength in the bilateral upper extremities normal Vertebral body tenderness to palpation over Spurling test positive Distraction test positive Facet loading test positive Thoracic spine Muscle bulk / tone/ strength in the bilateral paraspinal muscles normal Vertebral body tender to palpation over Facet loading test positive Lumbar spine: Motor bulk/ tone/ strength lower extremities , thigh and legs : 5/5 Deep tendon reflexes : Normal Knee Jerk. Normal Ankle Jerk . Vertebral body tenderness to palpation over Lumbar Facet Loading Test positive over BL L4-L5, L5-S1 w jump reflex on palpation of facets Straight Leg Raise: positive at 30 degrees right side/ left side Gaenslen's Test positive Sacral spine : Severe tenderness over the Sacroiliac joint: right side / left side Range of motion: Flexion of the lumbar spine <60 degrees Range of motion: Extension of the lumbar spine <20 degrees Gaenslen's Test positive Carlin's Test positive Rayne test: positive right side / left side Thigh Thrust Test Sacral Thrust Test Assessment and plan: Chronic low back pain secondary to lumbar degenerative disc disease , lumbar spondylosis with facet arthropathy without myelopathy Recommendation of BL RFA L4-L5, L5-S1. Pt exhibited sufficient and optimal pain relief w prior BL RFA of the L3-L5. Risks, benefits of procedure discussed and pt verbalized understanding. Denies anticoagulant use or medical history of diabetes. All patient questions answered MAPS reviewed and it was appropriate. I have spent less than 30 minutes on patient care today. Dr Garza was available by phone for the evaluation of this patient. The time was used to review the medical records including relevant urine studies and Prescription history (MAPs), review of the available imaging, evaluation and examination of the patient, coordination of care with the medical staff and if applicable referring physicians, as well as creation of the medical record PQRS Narrative: Smoking Status Never smoker Narcotic Agreement Date Signed 12/09/17 Hx Alcohol Use (MH) Yes: OCC. Home Medications: Ambulatory Orders Levothyroxine Sodium [Synthroid] 25 mcg PO QAM 11/20/13 atenoloL [Tenormin] 25 mg PO BID 11/20/13 ALPRAZolam [Xanax] 0.25 mg PO HS PRN 12/09/17 Biotin 5 mg PO DAILY 05/01/18 [place]-3 Fatty Acids/Fish Oil [Fish Oil 1,000 mg Softgel] 1 cap PO DAILY 05/01/18 Omeprazole [PriLOSEC] 40 mg PO DAILY 05/26/18 amLODIPine [Norvasc] 2.5 mg PO HS 05/26/18 Ibuprofen 600 mg PO BID PRN 07/24/19 Acyclovir [Zovirax] 400 mg PO DIRECTED PRN 02/18/20 Albuterol Sulfate [Proair Hfa] 1 - 2 puff INHALATION Q6HR PRN 02/18/20 Calcium Carbonate [Calcium] 600 mg PO DAILY 02/18/20 Cholecalciferol [Vitamin D3 (25 Mcg = 1000 Iu)] 2,000 unit PO DAILY 02/18/20 Cyclobenzaprine [Flexeril] 10 mg PO HS PRN 02/18/20 Eszopiclone [Lunesta] 3 mg PO HS PRN 02/18/20 Niacin 250 mg PO DAILY 02/18/20 Controlled Substance Measures - Controlled Substance Measures Is patient prescribed a controlled substance at discharge?: No
== END ==
LOC: PNWHC3 12:06
PROVIDERS: ATTEND Specialist
DX: M51.36 Other intervertebral disc degeneration, lumbar region (principal); M47.816 Spondylosis without myelopathy or radiculopathy, lumbar region; G89.29 Other chronic pain; Z88.2 Allergy status to sulfonamides
CPT/HCPCS: 99211

== ENCOUNTER → 2022-05-28 | Outpatient (CLI) | payer MEDICARE, OTHER ==
[2022-05-28 10:58] LABS: ALT 22 U/L (8-44); AST 28 U/L (13-35); Albumin 4.3 g/dL (3.8-4.9); Albumin/Globulin Ratio 1.55 (1.60-3.17); Alkaline Phosphatase 92 U/L (41-126); BUN/Creat Ratio 19.97 Ratio (12.00-20.00); Blood Urea Nitrogen 15.6 mg/dL (9.0-27.0); Calcium 9.2 mg/dL (8.7-10.3); Carbon Dioxide 23.2 mmol/L (20.0-27.5); Chloride 104 mmol/L (96-109); Chol/HDL Ratio 2.75 Ratio; Globulin 2.8 g/dL (1.6-3.3); Glucose 100 mg/dL (70-110); LDL Cholesterol,Calculated 103.6 mg/dL (0.0-131.0); Non-African American GFR(CKD) 78.5 (60.0-200.0); Potassium 4.5 mmol/L (3.5-5.5); Sodium 137 mmol/L (135-145); Total Protein 7.1 g/dL (6.2-8.2); VLDL Calculation 16.56 mg/dL (5.00-40.00)
== END | disposition home or self-care (01) ==
LOC: LABWHC1 07:52
PROVIDERS: ATTEND Family Medicine
DX: Z00.00 Encounter for general adult medical examination without abnormal findings (principal)
CPT/HCPCS: 36415; 80053; 80061; 82306; 82607

== ENCOUNTER → 2022-10-02 | Outpatient (CLI) | payer MEDICARE, OTHER ==
--- NOTE | 2022-10-02 11:08 | BD ---
EXAMINATION TYPE: Axial Bone Density DATE OF EXAM: 10/02/2022 CLINICAL HISTORY: 66 years year old Female. ICD-10 CODE: M85.9 DISORDER OF BONE DENSITY AND STRUCTUR E, UNSPECIFIED Height: 5'2 Weight: 143 FRAX RISK QUESTIONS: Secondary Osteoporosis: 3. Menopause before 45: y RISK FACTORS HISTORY OF: MEDICATIONS: Thyroid Medications: Which medication: Levothyroxine How Lon years Additional Medications: blood pressure, reflux Additional History: EXAM MEASUREMENTS: Bone mineral densitometry was performed using the [employer] System. Bone mineral density as measured about the Lumbar spine is: ----- L1-L4(G/cm2): 1.188 T Score Values are as follows: ----- L1: 0.1 ----- L2: -0.3 ----- L3: -0.2 ----- L4: 0.3 ----- L1-L4: 0.1 Z Score Values are as follows: ----- L1: 1.7 ----- L2: 1.4 ----- L3: 1.4 ----- L4: 2.0 ----- L1-L4: 1.7 Bone mineral density has: Decreased -1.4% since study of: 08/25/2020 Bone mineral density about the R hip (g/cm2): 0.924 Bone mineral density about the L hip (g/cm2): 0.859 T Score values are as follows: -----R Neck: -1.5 -----L Neck: -1.7 -----R Total: -0.7 -----L Total: -1.2 Z Score values are as follows: -----R Neck: 0.1 -----L Neck: -0.1 -----R Total: 0.7 -----L Total: 0.2 Bone mineral density has: Increased 0.8% since study of: 08/25/2020 FRAX%s: The graph provided illustrates a 10.2% chance for a major osteoporotic fx and a1.4% chance f or the hips probability for fx in 10 years time. IMPRESSION: Osteopenia (T Score between -2.5 and -1). There is slightly increased risk of fracture and the patient may be considered for treatment. Re-Screen 2-5 years. NOTE: T-SCORE=SD OF THE YOUNG ADULT MEAN.
--- NOTE | 2022-10-03 09:00 | MM ---
Reason for Exam: Screening (asymptomatic). Last mammogram was performed 1 year(s) and 1 month(s) ago. Patient History: Menarche at age 11. First Full-Term at age 22. Left ovary removed at age 27. Right ovary removed at age 27. Hysterectomy at age 27. Postmenopausal. Estrogen, starting at age 32 for 18 years. 2001, Benign Excisional Biopsy on the left side. Mother had breast cancer, age 55. Risk Values: [place] 5 year model risk: 3.8%. NCI Lifetime model risk: 12.7%. Prior Study Comparison: 08/24/2019 Bilateral Screening Mammogram, [facility]. 08/24/2020 Bilateral Diagnostic Mammogram, [facility]. 09/05/2021 Bilateral Screening Mammogram, [facility]. Tissue Density: There are scattered fibroglandular densities. Analyzed By CAD. Overall Assessment: Negative, BI-RAD 1 Management: Screening Mammogram of both breasts in 1 year. Electronically signed and approved by: Andrzej Nelson M.D.
== END | disposition home or self-care (01) ==
LOC: RADMAMWWP 10:23
PROVIDERS: ATTEND Family Medicine
DX: Z12.31 Encounter for screening mammogram for malignant neoplasm of breast (principal); M85.89 Other specified disorders of bone density and structure, multiple sites; Z78.0 Asymptomatic menopausal state; Z80.3 Family history of malignant neoplasm of breast
CPT/HCPCS: 77063; 77067; 77080

== ENCOUNTER 2022-10-05 11:51 | Day surgery (SDC) | payer MEDICARE, OTHER ==
[2022-10-02 09:08] VITALS: BMI 25.4
[~2022-10-05 11:51] MED LIST changes: +LIDOCAINE 1% (10MG/ML) FOR IV START INTRADERMA PRN
[2022-10-05] MEDS: LACTATED RINGERS 1,000 ML IV SCH ×2 (12:04→12:48)
[2022-10-05 12:17] VITALS: TEMP 97.3
[2022-10-05] MEDS ORDERED: ROPIVACAINE 5 MG/ML 20 ML AMPULE ONE (12:50)
[2022-10-05] MEDS ORDERED: fentaNYL (PF) 50 MCG/ML 2 ML AMP ONE (12:50)
[2022-10-05] MEDS ORDERED: MIDAZOLAM 2 MG/2 ML VIAL ONE (12:50)
[2022-10-05] MEDS ORDERED: TRIAMCINOLONE ACETONIDE 40 MG/ML 1 ML VIAL ONE (12:50)
--- NOTE | 2022-10-05 13:09 | P.PCN ---
Date of Procedure: 10/05/22 Surgeon: Leila Gates Pathology: none sent Condition: stable Disposition: PACU Description of Procedure: PREOPERATIVE DIAGNOSIS : 1- Lumbar spondylosis with Facet Arthropathy without myelopathy . 2- Lumber degenerative disc disease POSTOPERATIVE DIAGNOSIS: 1- Lumbar spondylosis with Facet Arthropathy without myelopathy . 2- Lumber degenerative disc disease PROCEDURE: Diagnostic bilateral L4 -5 , and L5-S1 medial branch block under fluoroscopy Physician: Leila Gates MD ANESTHESIA: Local with 1% lidocaine; IV moderate conscious sedation with Versed 2 mg by anesthesia Department . EBL: Negligible COMPLICATION: None. PROCEDURE INDICATION: Chronic low back pain secondary to Facet arthropathy unresponsive to conservative treatment. PROCEDURE DESCRIPTION: the patient was seen and identified in the preop holding area , risks and benefits and possible complications of the procedure and alternatives were discussed with the patient, and the patient agreed to proceed with the procedure and signed the consent. IV was started and vital signs monitored during the procedure and fluoroscopy was used to maximize the benefit and accuracy of the needle placement, sedation was given to decrease patient anxiety, patient was taken to the procedure room and placed in prone position vital signs monitored. The patient was brought into the procedure room and placed in prone position. Skin was prepped with Chloraprep and draped in a sterile manner. Lidocaine 1% was used to numb the skin up at the target points that were chosen as follows: at the L5-S1 level which corresponds to the dorsal ramus of L5 the target points were at the superior medial aspect of the sacral ala on each side of the spine on the AP view of fluoroscopy, and for the L3 and L4 medial branches the target points were the connection between the transverse process and the superior articular process of L4 and L5 respectively on the oblique views of fluoroscopy. I used 22-gauge 3-1/2 inch Quincke spinal needles for this procedure and after contacting bone at the target points mentioned above I injected 1 mL of a mixture of Kenalog 40 mg +5 MLS of Ropivacaine 0.5% PF . Patient tolerated procedure well. At the end of the procedure the needles removed and a bandage applied after the skin was cleaned the cleaning solution. patient was then taken to the recovery room in stable condition and monitored in the recovery room for 20-30 minutes and discharged home in stable condition after discharge criteria met . A copy of the needle placement picture was saved to the C-arm machine.
[2022-10-05] MEDS ORDERED: LACTATED RINGERS 1,000 ML IV ONE (13:16)
[2022-10-05 13:35] VITALS: BP 117/76; PULSE 74; RESP 15
--- NOTE | 2022-10-05 13:37 | FL ---
Intraoperative/procedural fluoroscopic services were provided for bilateral facet lumbar block. Total fluoroscopy time is 10 seconds with a total of 4 submitted images to PACS. Total DAP [id number]. Please see the operative note for further details.
== END 2022-10-05 13:50 | disposition home or self-care (01) ==
LOC: ORPAIN 11:51
PROVIDERS: ATTEND Anesthesiology
DX: M51.36 Other intervertebral disc degeneration, lumbar region (principal); M47.816 Spondylosis without myelopathy or radiculopathy, lumbar region; G89.29 Other chronic pain; I10 Essential (primary) hypertension; E78.5 Hyperlipidemia, unspecified; J45.909 Unspecified asthma, uncomplicated; E03.9 Hypothyroidism, unspecified; F41.9 Anxiety disorder, unspecified; K21.9 Gastro-esophageal reflux disease without esophagitis; Z88.2 Allergy status to sulfonamides; Z79.890 Hormone replacement therapy; Z79.899 Other long term (current) drug therapy

== ENCOUNTER → 2022-10-24 | Outpatient (CLI) | payer MEDICARE, OTHER ==
--- NOTE | 2022-10-24 12:45 | P.PN ---
Subjective Progress Note Date: 10/24/22 This is a 66-year-old lady with history of chronic lower back pain due to lumbar spondylosis and degenerative disc disease. The patient received the first diagnostic lumbar medial branch block a few weeks ago which gave her 100% of pain relief that she started right after the procedure and last for a few days. The patient usually uses heat pads and Motrin for her pain. She failed to respond to chiropractic treatment and physical therapy. Patient denies new-onset weakness, bowel/bladder incontinence, or any other signs or symptoms of cauda equina syndrome. There are no signs of acute intoxication, and no indications of medication diversion or overuse. In addition to above, 13-point review of systems is also negative for chest pain, shortness of breath, changes in vision, changes in hearing, new onset weakness, abdominal pain, diarrhea, extreme fatigue, malaise, fever, skin cook ges, homicidal or suicidal ideation, or bowel or bladder incontinence. Vital Signs: Reviewed in EMR Gen: AAOx3, NAD HEENT: PERRLA,hearing grossly normal Pulm: resp unlabored Neck: supple, trachea midline Neuro exam of the lower extremities: Normal muscle strength bilaterally Straight leg raising test: Negative bilaterally Carlin's test: Range of motion of the lumbar spine: Facet loading test: Tenderness in the paravertebral musculature: Positive tenderness mostly on the right side of the lumbar spine Neuro: CN II-XII grossly intact, Imaging: Reviewed in EMR/chart Assessment: Lumbar spondylosis without myelopathy Plan: 1. Explanation: When patients on opioids, opioid and psychological risk scores were reviewed. Diagnoses, prognoses, and multiple treatment options including but not limited to physical therapy, interventional therapies, adjuvant medical therapies, narcotic medication therapies, and surgery were discussed with the patient and all questions were answered to the patient's satisfaction. 2. Opioid agreement:When patients are prescribed opoids through our clinic, opioid agreement is signed with the patient and the patient is warned not to use opioids while driving or before driving and not to combine opioids with benzodiazepines or alcohol. 3. Counseling: When patient is smoking or obese, the patient was counseled extensively on SMOKING CESSATION, BODY MASS INDEX, EXERCISE. Specifically, the patient was instructed regarding the importance of smoking cessation, obesity, and exercise in the context of both chronic pain and overall health. 4. Procedures: Scheduled for the second diagnostic lumbar medial branch block for levels L4 5 and L5-S1 bilaterally 5. Consultations: None 6. Investigations: None 7. Medications: None prescribed 8. Disposition: Proceed with the above-mentioned procedure as soon as possible 9. Maps were reviewed and were appropriate. PQRS measures: 1-Patient's medications are documented in the chart. 2-Tobacco use is negative, counseling given 3-Patient has had a pneumococcal vaccine. 4-Advanced care planning discussed, patient unable to give 5-Opioid contract signed with the patient. 6-Pain positive, follow-up visit or procedure scheduled 7-Patient's blood pressure measured and documented . The patient will follow up with his primary care physician. 8-Patient's weight was measured. Patient instructed to follow up with PCP. 9-Patient WAS NOT identified as an unhealthy alcohol user.
[2022-10-24 13:19] VITALS: BP 145/78; PULSE 70; RESP 18; TEMP 98.3
== END ==
LOC: PNWHC3 11:57
PROVIDERS: ATTEND Anesthesiology
DX: M47.816 Spondylosis without myelopathy or radiculopathy, lumbar region (principal); Z88.1 Allergy status to other antibiotic agents
CPT/HCPCS: 99211

== ENCOUNTER → 2023-01-02 | Outpatient (CLI) | payer MEDICARE, OTHER ==
[2023-01-02 12:10] VITALS: BP 172/81; PULSE 59; RESP 18; TEMP 98.1
--- NOTE | 2023-01-02 15:03 | P.PAINPG ---
PQRS Measure Charge Sheet Comment: A 67 yr old female w sister at side with a history of severe and chronic LBP secondary to lumbar DDD and spondylosis with facet arthropathy without myelopathy presents today for evaluation s/p BL MBB L4-L5, L5-S1 #2. Pt states she experienced 100 % pain relief x 3 day s/p procedure. Pain level is provoked at 7 /10 in intensity, constant, localized in the lumbar spine, sharp in character without shooting pain. Pain is provoked by standing/ sitting for periods of 10 min or more. Pain is alleviated with chiropractic treatments monthly x 1 yr, ice, medications, topical, sitting and rest. Interventional pain procedures completed include BL MBB L3-L5 x2 Patient is currently on Ibu Patient denies any side effects of the medication(s), denies excessive drowsiness or sleepiness, denies suicidal ideation and reports that the current pain medication is helping to control the pain and improve activities of daily living. Patient denies any motor or sensory deficits. Patient denies any fever or night sweats, denies any change in the bowel movements or urination. Physical Examination: -Constitutional: Cooperative. Not in acute distress . - Neurologic: Cranial nerve II to XII intact. No focal neurological deficits. - Psychatric: Alert & oriented x 3. Matching mood & appropriate affect. Judgment and insight intact. - Musculoskeletal: Cervical spine: Muscle bulk/ tone/ strength in the bilateral upper extremities normal Vertebral body tenderness to palpation over Spurling test positive Distraction test positive Facet loading test positive TTP Thoracic spine Muscle bulk / tone/ strength in the bilateral paraspinal muscles normal Vertebral body tender to palpation over Facet loading test positive TTP Lumbar spine: Motor bulk/ tone/ strength lower extremities , thigh and legs : 5/5 Deep tendon reflexes : Normal Knee Jerk. Normal Ankle Jerk . Vertebral body tenderness to palpation over Mcbride Test positive Lumbar Facet Loading Test positive over BL L4-L5, L5-S1 Straight Leg Raise: positive at 30 degrees right side/ left side Gaenslen's Test positive Sacral spine : Severe tenderness over the Sacroiliac joint: right side / left side Range of motion: Flexion of the lumbar spine <60 degrees Range of motion: Extension of the lumbar spine <20 degrees Gaenslen's Test positive right side / left side Rayne test: positive right side / left side Thigh Thrust Test positive right side / left side Sacral Thrust Test positive right side / left side Assessment and plan: Chronic LBP secondary to lumbar DDD, spondylosis with facet arthropathy without myelopathy Recommendation of BL RFA L4-L5, L5-S1. Pt exhibited sufficient and substantial pain relief w prior MBB procedures. Risks, benefits of procedure discussed and pt verbalized understanding. Admits to anticoagulant use or medical history of diabetes. Protocol for discontinuation/ continuation of medications enriqueta procedure discussed. Minimal anesthesia provided, if clinically indicated, consisting of Versed and Fentanyl. All questions answered. I have spent less than 30 minutes on patient care today. Dr Garza was available by phone for the evaluation of this patient. The time was used to review the medical records including relevant urine studies and Prescription history (MAPs), review of the available imaging, evaluation and examination of the patient, coordination of care with the medical staff and if applicable referring physicians, as well as creation of the medical record PQRS Narrative: Smoking Status Never smoker Narcotic Agreement Date Signed 12/09/17 Hx Alcohol Use (MH) Yes: OCC. Home Medications: Ambulatory Orders Levothyroxine Sodium [Synthroid] 25 mcg PO QAM 11/20/13 ALPRAZolam [Xanax] 0.25 mg PO HS PRN 12/09/17 Omeprazole [PriLOSEC] 40 mg PO DAILY 05/26/18 amLODIPine [Norvasc] 5 mg PO DAILY@1500 05/26/18 Cyclobenzaprine [Flexeril] 10 mg PO HS PRN 02/18/20 Albuterol Inhaler [Ventolin Hfa Inhaler] 1 puff INHALATION DIRECTED PRN 08/29/22 Ascorbic Acid [Vitamin C] 1,000 mg PO DAILY 08/29/22 Biotin/Lutein [Biotin Plus 5,000 Mcg Tablet] 1 each PO DAILY 08/29/22 Cholecalciferol [Vitamin D3 (10 Mcg = 400 Iu)] 10 mcg PO DAILY 08/29/22 Ibuprofen [Motrin] 800 mg PO Q8H PRN 08/29/22 Magnesium Oxide [Magnesium] 500 mg PO DAILY 08/29/22 Metoprolol Tartrate 25 mg PO HS 08/29/22 Rosuvastatin Calcium 5 mg PO HS 08/29/22 Zinc Gluconate [Zinc] 50 mg PO DAILY 08/29/22 Metoprolol Tartrate [Lopressor] 50 mg PO DAILY 10/02/22 Eszopiclone [Lunesta] 3 mg PO 11/23/22 Controlled Substance Measures - Controlled Substance Measures Is patient prescribed a controlled substance at discharge?: No
== END ==
LOC: PNWHC3 09:35
PROVIDERS: ATTEND Specialist
DX: M51.36 Other intervertebral disc degeneration, lumbar region (principal); G89.29 Other chronic pain; M47.816 Spondylosis without myelopathy or radiculopathy, lumbar region; Z88.1 Allergy status to other antibiotic agents
CPT/HCPCS: 99211

== ENCOUNTER 2023-01-11 11:16 | Day surgery (SDC) | payer MEDICARE, OTHER ==
[2023-01-11] MEDS ORDERED: LIDOCAINE 1% (10MG/ML) FOR IV START INTRADERMA ONE (11:50)
[2023-01-11] MEDS ORDERED: LACTATED RINGERS 1,000 ML IV ONE ×2 (11:50→12:37)
[2023-01-11 11:51] VITALS: RESP 16; TEMP 97.4
[2023-01-11] MEDS ORDERED: MIDAZOLAM 2 MG/2 ML VIAL ONE (12:02)
[2023-01-11] MEDS ORDERED: ROPIVACAINE 5 MG/ML 20 ML AMPULE ONE (12:02)
[2023-01-11] MEDS ORDERED: fentaNYL (PF) 50 MCG/ML 2 ML AMP ONE (12:02)
[2023-01-11] MEDS ORDERED: methylPREDNISolone ACETATE 40 MG/ML 1 ML VIAL ONE (12:02)
[2023-01-11] MEDS ORDERED: LIDOCAINE 1% (10MG/ML) FOR IV START INTRADERMA PRN (12:05)
[2023-01-11] MEDS ORDERED: LACTATED RINGERS 1,000 ML IV SCH (12:05)
--- NOTE | 2023-01-11 12:32 | P.PCN ---
Date of Procedure: 01/11/23 Procedure(s) Performed: PREOPERATIVE DIAGNOSIS: 1-Lumbar Spondylosis with Facet Arthropathy without myelopathy. POSTOPERATIVE DIAGNOSIS: 1- Lumbar Spondylosis with Facet Arthropathy without myelopathy. PROCEDURES : Bilateral Radiofrequency thermocoagulation, L3 , L4 , and L5 medial branch, with fluoroscopic guidance (fluoroscopy images available in the radiology department) ( to denervate the facet joint at bilateral L4-5 ,and L5-S1 levels ). ANESTHESIA: Monitored anesthesia care as per anesthesia department . EBL: Minimal PROCEDURE INDICATION: The patient with low back pain secondary to lumbar facet arthropathy who had more than 50% relief of her pain with previous diagnostic lumbar medial branch block with bupivacaine. PROCEDURE DESCRIPTION / TECHNIQUE: The patient was seen and identified in the preoperative area. Risks, benefits, complications, including but not limited to risk of infection ,bleeding , allergic reactions to the medications and no complete pain releife , and alternatives were discussed with the patient, the patient agreed to proceed with the procedure and signed the consent. IV was started. Vital signs remained stable throughout the procedure. Patient was taken to the OR and time out was completed. The patient was placed in the prone position on the procedure table. The lumber area was prepped and draped in the usual sterile fashion. . Vital signs were closely monitored during the procedure .IV sedation was used during the procedure to decrease patients anxiety. Using AP and then oblique fluoroscopy, the ``eye of the Adolfo dog corresponding to the connection between the superior and transverse articular processes of right L3, L4, and L5 were identified, marked, and localized with 1% lidocaine. Subsequently, a [id number] radiofrequency cannula with a 10- mm active tip was advanced guided by fluoroscopy to each of the``eyes of the Adolfo dog at right L3, L4, and L5. Each site then underwent sensory testing at 50 Hz and 0 to 1 volt and motor testing at 2.5 Hz and 0 to 3 volt with local stimulation, but no radicular symptoms down the legs. Thereafter each sites underwent radiofrequency thermocoagulation at 80 degrees celsius for 90 seconds after injecting 0.5 ml of PF Ropivacaine 1ml, then after the thermocoagulation done , 1 ml of the block solution containing Depo-Medrol 20 mg and 3 ml of Ropivacaine 0.5% was injected at the right L3 , L4 , and L5 , levels after negative aspiration of CSF and blood and with no paresthesias. Cannulas were retracted while injecting lidocaine 1% until the needle is out. The same procedure was repeated at the level of Left L3, L4, and L5 levels. At the end of the procedure, the skin was cleansed and bandages were applied. COMPLICATIONS: No acute complications. DISPOSITION / PLANS: The patient was placed in a supine position and transferred to the recovery area in a stable condition for observation and was discharged from the recovery room after meeting discharge criteria. Home discharge instructions given to the patient by the staff. The patient was reexamined prior to discharge. The patient will schedule a follow up in the clinic in 2-4 weeks.
--- NOTE | 2023-01-11 12:45 | FL ---
EXAMINATION TYPE: FL guided pain mgmt statistic DATE OF EXAM: 01/11/2023 HISTORY: Fluoroscopy time Total dose area product (DAP) in uGy*m?, mGy*cm? (or similar): 0.83402 IMPRESSION: 1. Fluoroscopy time.
[2023-01-11 12:57] VITALS: BP 135/80; PULSE 64
== END 2023-01-11 13:06 | disposition home or self-care (01) ==
LOC: ORPAIN 11:16
PROVIDERS: ATTEND Specialist
DX: M47.816 Spondylosis without myelopathy or radiculopathy, lumbar region (principal); E07.9 Disorder of thyroid, unspecified; K21.9 Gastro-esophageal reflux disease without esophagitis; Z88.1 Allergy status to other antibiotic agents; Z79.890 Hormone replacement therapy; Z79.899 Other long term (current) drug therapy
CPT/HCPCS: 64635; 64636 ×2; 99152; J2250; J1030; J3010; J2795

== ENCOUNTER → 2023-02-06 | Outpatient (CLI) | payer MEDICARE, OTHER ==
[2023-02-06 12:53] VITALS: BP 135/96; PULSE 69; RESP 15
--- NOTE | 2023-02-06 15:32 | P.PAINPG ---
Objective - Vital Signs Vital signs: Intake & Output 02/05/23 02/06/23 02/06/23 18:59 06:59 18:59 Weight 61.689 kg PQRS Measure Charge Sheet Comment: A 67 yr old female w sister at side with a history of severe and chronic LBP secondary to lumbar DDD and spondylosis with facet arthropathy without myelopathy presents today for evaluation s/p BL RFA L4-L5, L5-S1 . Pt states she experienced 50% pain relief x 1 wk s/p procedure. Pain level is provoked at 10 /10 in intensity, constant, localized in the lumbar spine, sharp in character without shooting pain. Pain is provoked by standing/ sitting for periods of 10 min or more. Pain is alleviated with chiropractic treatments monthly x 1 yr, ice, medications, topical, sitting and rest. Interventional pain procedures completed include BL MBB L3-L5 x2 Patient is currently on Ibu, Lidoderm Patient denies any side effects of the medication(s), denies excessive drowsiness or sleepiness, denies suicidal ideation and reports that the current pain medication is helping to control the pain and improve activities of daily living. Patient denies any motor or sensory deficits. Patient denies any fever or night sweats, denies any change in the bowel movements or urination. Physical Examination: -Constitutional: Cooperative. Not in acute distress . - Neurologic: Cranial nerve II to XII intact. No focal neurological deficits. - Psychatric: Alert & oriented x 3. Matching mood & appropriate affect. Judgment and insight intact. - Musculoskeletal: Cervical spine: Muscle bulk/ tone/ strength in the bilateral upper extremities normal Vertebral body tenderness to palpation over Spurling test positive Distraction test positive Facet loading test positive TTP Thoracic spine Muscle bulk / tone/ strength in the bilateral paraspinal muscles normal Vertebral body tender to palpation over Facet loading test positive TTP Lumbar spine: Motor bulk/ tone/ strength lower extremities , thigh and legs : 5/5 Deep tendon reflexes : Normal Knee Jerk. Normal Ankle Jerk . Vertebral body tenderness to palpation over L4, L5 Mcbride Test positive Lumbar Facet Loading Test positive over BL L4-L5, L5-S1 Straight Leg Raise: positive at 30 degrees right side/ left side Gaenslen's Test positive Sacral spine : Severe tenderness over the Sacroiliac joint: right side / left side Range of motion: Flexion of the lumbar spine <60 degrees Range of motion: Extension of the lumbar spine <20 degrees Gaenslen's Test positive right side / left side Rayne test: positive right side / left side Thigh Thrust Test positive right side / left side Sacral Thrust Test positive right side / left side Assessment and plan: Chronic LBP secondary to lumbar DDD, spondylosis with facet arthropathy without myelopathy Pt will follow up w Dr Masters to explore additional treatment options. May return to clinic on an as needed basis. All questions answered. I have spent less than 30 minutes on patient care today. Dr Garza was available by phone for the evaluation of this patient. The time was used to review the medical records including relevant urine studies and Prescription history (MAPs), review of the available imaging, evaluation and examination of the patient, coordination of care with the medical staff and if applicable referring physicians, as well as creation of the medical record PQRS Narrative: Smoking Status Never smoker Narcotic Agreement Date Signed 12/09/17 Hx Alcohol Use (MH) Yes: OCC. Home Medications: Ambulatory Orders Levothyroxine Sodium [Synthroid] 25 mcg PO QAM 11/20/13 ALPRAZolam [Xanax] 0.25 mg PO HS PRN 12/09/17 Omeprazole [PriLOSEC] 40 mg PO DAILY 05/26/18 amLODIPine [Norvasc] 5 mg PO DAILY@1500 05/26/18 Cyclobenzaprine [Flexeril] 10 mg PO HS PRN 02/18/20 Albuterol Inhaler [Ventolin Hfa Inhaler] 1 puff INHALATION DIRECTED PRN 08/29/22 Ascorbic Acid [Vitamin C] 1,000 mg PO DAILY 08/29/22 Biotin/Lutein [Biotin Plus 5,000 Mcg Tablet] 1 each PO DAILY 08/29/22 Cholecalciferol [Vitamin D3 (10 Mcg = 400 Iu)] 10 mcg PO DAILY 08/29/22 Ibuprofen [Motrin] 800 mg PO Q8H PRN 08/29/22 Magnesium Oxide [Magnesium] 500 mg PO DAILY 08/29/22 Metoprolol Tartrate 25 mg PO HS 08/29/22 Rosuvastatin Calcium 5 mg PO HS 08/29/22 Zinc Gluconate [Zinc] 50 mg PO DAILY 08/29/22 Metoprolol Tartrate [Lopressor] 50 mg PO DAILY 10/02/22 Eszopiclone [Lunesta] 3 mg PO HS 11/23/22 Controlled Substance Measures - Controlled Substance Measures Is patient prescribed a controlled substance at discharge?: No
== END ==
LOC: PNWHC3 12:23
PROVIDERS: ATTEND Specialist
DX: M51.37 Other intervertebral disc degeneration, lumbosacral region (principal); M47.817 Spondylosis without myelopathy or radiculopathy, lumbosacral region; G89.29 Other chronic pain; Z88.1 Allergy status to other antibiotic agents
CPT/HCPCS: 99211

== ENCOUNTER → 2023-02-07 | Outpatient (CLI) | payer MEDICARE, OTHER ==
--- NOTE | 2023-02-07 12:57 | MR ---
EXAMINATION TYPE: MR lumbar spine wo con DATE OF EXAM: 02/07/2023 12:38 PM COMPARISON: 10/11/2016 HISTORY: Chronic pain lumbar spine, radiculopathy Multiplanar, MultiSpin echo imaging of the lumbar spine was performed. L1-L2: Normal disc appearance without desiccation. No herniation, protrusion or disc bulging. No ca nal stenosis is present. Foramina are patent bilaterally. L2-L3: There is mild decreased signal and loss of height compatible with degenerative disc disease. M ild posterior disc bulge without herniation or central stenosis. The foramina are patent bilaterally. L3-L4: Normal disc appearance without desiccation. No herniation, protrusion or disc bulging. No ca nal stenosis is present. Foramina are patent bilaterally. L4-L5: Mild disc desiccation with broad-based posterior disc bulge. Mild effacement of the ventral th ecal sac without herniation, lateral recess stenosis or central stenosis as the spinal canal is quite capacious. There is mild bilateral neural foraminal encroachment seen. L5-S1: Mild disc desiccation with posterior disc bulge. I cannot exclude a small disc herniation situ ated at the level of the neural foramen resulting in moderate right-sided neural foraminal encroachm ent. There is mild left-sided neural foraminal encroachment seen. No central stenosis or lateral rece ss stenosis. Lumbar segments are intact. No paraspinal masses are identified. Conus medullaris has a normal appe arance. IMPRESSION: 1. Multilevel degenerative disc disease. 2. Small disc herniation at the level of the right neural foramen results in right neural foraminal e ncroachment as outlined above.
== END | disposition home or self-care (01) ==
LOC: RADMRIMAIN 11:51
PROVIDERS: ATTEND Orthopaedic Surgery Orthopaedic Surgery of the Spine
DX: M51.16 Intervertebral disc disorders with radiculopathy, lumbar region (principal); M99.73 Connective tissue and disc stenosis of intervertebral foramina of lumbar region; M47.22 Other spondylosis with radiculopathy, cervical region; M50.123 Cervical disc disorder at C6-C7 level with radiculopathy; M25.78 Osteophyte, vertebrae; M79.12 Myalgia of auxiliary muscles, head and neck; M43.12 Spondylolisthesis, cervical region; M43.16 Spondylolisthesis, lumbar region
CPT/HCPCS: 72148

== ENCOUNTER → 2023-06-27 | Outpatient (CLI) | payer MEDICARE, OTHER ==
--- NOTE | 2023-06-27 15:08 | MM ---
Reason for Exam: Clinical finding. Last screening mammogram was performed 9 month(s) ago. Indicated Problems: Pain of the left side (Focal) for 6 Month(s). Patient History: Menarche at age 11. First Full-Term at age 22. Left ovary removed at age 27. Right ovary removed at age 27. Hysterectomy at age 27. Postmenopausal. Estrogen, starting at age 32 for 18 years. 2001, Benign Excisional Biopsy on the left side. Mother had breast cancer, age 55. Daughter had breast cancer under age 50. Risk Values: Beatriz 5 year model risk: 8.1%. NCI Lifetime model risk: 24.0%. Prior Study Comparison: 08/24/2020 Bilateral Diagnostic Mammogram, [facility]. 09/05/2021 Bilateral Screening Mammogram, [facility]. 10/02/2022 Bilateral MG 3D screening mammo w/cad, [facility]. Tissue Density: Left: There are scattered fibroglandular densities. Findings: Analyzed By CAD. No mass or distortion. No suspicious calcifications. Overall Assessment: Negative, BI-RAD 1 Management: Screening Mammogram of both breasts in 6 months. . Results were given to the patient verbally at the time of exam. Patient should continue monthly self-breast exams. A clinical breast exam by your physician is recommended on an annual basis. This exam should not preclude additional follow-up of suspicious palpable abnormalities. Note on Beatriz scores and lifetime risk: 1. A Beatriz score greater than 3% is considered moderate risk. If this is the case, consider specialist referral to assess eligibility for a risk reducing agent. 2. If overall lifetime risk for the development of breast cancer is 20% or higher, the patient may qualify for future screening with alternating mammogram and breast MRI. Electronically signed and approved by: Siva Kelley M.D. Radiologis
== END | disposition home or self-care (01) ==
LOC: RADMAMWWP 09:34
PROVIDERS: ATTEND Obstetrics & Gynecology
DX: R92.322 Mammographic fibroglandular density, left breast (principal); N64.4 Mastodynia; Z78.0 Asymptomatic menopausal state; Z80.3 Family history of malignant neoplasm of breast
CPT/HCPCS: 77061; 77065

== ENCOUNTER 2023-07-24 22:26 | Emergency (ER) | payer MEDICARE, OTHER ==
[2023-07-24 22:32] VITALS: RESP 16; TEMP 98.7
--- NOTE | 2023-07-24 23:13 | ED ---
Dizziness HPI - General Source: patient, RN notes reviewed Mode of arrival: EMS Limitations: no limitations <Julianna Hammond - Last Filed: 07/24/23 23:14> - General Source: RN notes reviewed, old records reviewed Mode of arrival: EMS Limitations: no limitations - History of Present Illness MD Complaint: dizziness, lightheadedness, other (Elevated blood pressure) -: unknown Description: lightheadedness History of Same: No History of Trauma: No Severity: mild Worsens With: nothing Associated Symptoms: ataxia <Odell Jane - Last Filed: 08/04/23 19:57> - General Chief Complaint: Dizziness Stated Complaint: Hypertension Time Seen by Provider: 07/24/23 23:12 - History of Present Illness Initial Comments: Patient is a 67-year-old female presented ER with chief complaint of hyp ertension. Patient currently takes metoprolol and amlodipine. Patient states she's been feeling dizzy and lightheaded past couple of days and is checked her blood pressure and it has been elevated. Patient also reports chest pain and tightness last night. Patient denies any shortness of breath. (Julianna Hammond) This is a 68-year-old female to the emergency department for evaluation of hypertension main concern being elevated blood pressure although does admit to some dizziness and chest pain and tightness. No acute symptoms here in the ER with just significant anxiety secondary to elevated blood pressure (Odell Jane) - Related Data Home Medications Medication Instructions Recorded Confirmed Levothyroxine Sodium [Synthroid] 25 mcg PO QAM 11/20/13 02/06/23 ALPRAZolam [Xanax] 0.25 mg PO HS PRN 12/09/17 02/06/23 Omeprazole [PriLOSEC] 40 mg PO DAILY 05/26/18 02/06/23 amLODIPine [Norvasc] 5 mg PO DAILY@1500 05/26/18 02/06/23 Cyclobenzaprine [Flexeril] 10 mg PO HS PRN 02/18/20 02/06/23 Albuterol Inhaler [Ventolin Hfa 1 puff INHALATION DIRECTED PRN 08/29/22 02/06/23 Inhaler] Ascorbic Acid [Vitamin C] 1,000 mg PO DAILY 08/29/22 02/06/23 Biotin/Lutein [Biotin Plus 5,000 1 each PO DAILY 08/29/22 02/06/23 Mcg Tablet] Cholecalciferol [Vitamin D3 (10 10 mcg PO DAILY 08/29/22 02/06/23 Mcg = 400 Iu)] Ibuprofen [Motrin] 800 mg PO Q8H PRN 08/29/22 02/06/23 Magnesium Oxide [Magnesium] 500 mg PO DAILY 08/29/22 02/06/23 Metoprolol Tartrate 25 mg PO HS 08/29/22 02/06/23 Rosuvastatin Calcium 5 mg PO HS 08/29/22 02/06/23 Zinc Gluconate [Zinc] 50 mg PO DAILY 08/29/22 02/06/23 Metoprolol Tartrate [Lopressor] 50 mg PO DAILY 10/02/22 02/06/23 Eszopiclone [Lunesta] 3 mg PO HS 11/23/22 02/06/23 Allergies Allergy/AdvReac Type Severity Reaction Status Date / Time bacitracin Allergy BLISTERS Verified 07/24/23 22:31 Review of Systems ROS Other: All systems not noted in ROS Statement are negative. <Julianna Hammond - Last Filed: 07/24/23 23:14> ROS Other: All systems not noted in ROS Statement are negative. <Odell Jane - Last Filed: 08/04/23 19:57> ROS Statement: Those systems with pertinent positive or pertinent negative responses have been documented in the HPI. Past Medical History Past Medical History: Asthma, Eye Disorder, GERD/Reflux, Hypertension, Osteoarthritis (OA), Thyroid Disorder Additional Past Medical History / Comment(s): current dysphagia, chronic back & neck pain-. Glaucoma, blind in left eye History of Any Multi-Drug Resistant Organisms: None Reported Past Surgical History: Cholecystectomy, Hysterectomy, Orthopedic Surgery Additional Past Surgical History / Comment(s): neck fusion. jaw surg. back injections. trigger fingers. implant to left eye- pressure pump device-removed, retinol surgery x 2,LT EYE SURGERY X 6; R eye surgery-implant for fluid drainage Past Anesthesia/Blood Transfusion Reactions: No Reported Reaction Past Psychological History: No Psychological Hx Reported Smoking Status: Never smoker Past Alcohol Use History: Occasional Past Drug Use History: None Reported - Past Family History Mother Family Medical History: Cancer Brother(s) Family Medical History: Cancer Sister(s) Family Medical History: Cancer <Julianna Hammond - Last Filed: 07/24/23 23:14> General Exam Limitations: no limitations <Julianna Hammond - Last Filed: 07/24/23 23:14> General appearance: alert, in no apparent distress Head exam: Present: atraumatic, normocephalic, normal inspection Eye exam: Present: normal appearance, PERRL, EOMI. Absent: scleral icterus, conjunctival injection, periorbital swelling ENT exam: Present: normal exam, mucous membranes moist Neck exam: Present: normal inspection. Absent: tenderness, meningismus, lymphadenopathy Respiratory exam: Present: normal lung sounds bilaterally. Absent: respiratory distress, wheezes, rales, rhonchi, stridor Cardiovascular Exam: Present: regular rate, normal rhythm, normal heart sounds. Absent: systolic murmur, diastolic murmur, rubs, gallop, clicks GI/Abdominal exam: Present: soft, normal bowel sounds. Absent: distended, tenderness, guarding, rebound, rigid Extremities exam: Present: normal inspection, full ROM, normal capillary refill. Absent: tenderness, pedal edema, joint swelling, calf tenderness Back exam: Present: normal inspection Neurological exam: Present: alert, oriented X3, CN II-XII intact Psychiatric exam: Present: normal affect, normal mood Skin exam: Present: warm, dry, intact, normal color. Absent: rash <Odell Jane - Last Filed: 08/04/23 19:57> - General Exam Comments Initial Comments: Visual Physical Exam Vital signs reviewed General: Well-appearing, nontoxic, no acute distress. Head: Normocephalic, atraumatic ENT: Airway patent Chest: Nonlabored breathing Skin: No visual rash, normal skin tone Neuro: Alert and oriented 3 Musculoskeletal: No gross abnormalities (Julianna Hammond) Course <Odell Jane - Last Filed: 08/04/23 19:57> Vital Signs 07/24/23 07/25/23 22:29 01:57 Temperature 98.7 F Pulse Rate 89 87 Respiratory 16 16 Rate Blood Pressure 202/87 160/78 O2 Sat by Pulse 100 98 Oximetry - Reevaluation(s) Reevaluation #1: Record is reviewed (Odell Jane) Reevaluation #2: Symptoms are unchanged (Odell Jane) Reevaluation #3: Informed results and questions have been answered (Odell Jane) Reevaluation #4: 07/25/23 06:28 Was pt. sent in by a medical professional or institution (BLAN[facility] Hendrix, STORE ASSISTANT, urgent care, hospital, or skilled nursing...) When possible be specific @ -no Did you speak to anyone other than the patient for history (EMS, parent, family, police, friend...)? What history was obtained from this source @ -no Did you review nursing and triage notes (agree or disagree)? Why? @ -agree Are old charts reviewed (outside hosp., previous admission, EMS record, old EKG, old radiological studies, urgent care reports/EKG's, skilled nursing records)? Report findings @ -yes Differential Diagnosis (chest pain, altered mental status, abdominal pain women, abdominal pain men, vaginal bleeding, weakness, fever, dyspnea, syncope, headache, dizziness, GI bleed, back pain, seizure, CVA, palpatations, mental health, musculoskeletal)? @ -prior EKG interpreted by me (3pts min.). @ -yes X-rays interpreted by me (1pt min.). @ -yes negative for acute disease CT interpreted by me (1pt min.). @ -no U/S interpreted by me (1pt. min.). @ -no What testing was considered but not performed or refused? (CT, X-rays, U/S, labs)? Why? @ -none What meds were considered but not given or refused? Why? @ -none Did you discuss the management of the patient with other professionals (professionals i.e. BLAN[facility] Hendrix, STORE ASSISTANT, lab, RT, psych nurse, hospice social worker, [employer] machine operator, teacher, svp chief marketing officer, case operator)? Give summary @ -no Was smoking cessation discussed for >3mins.? @ -no Was critical care preformed (if so, how long)? @ -no Were there social determinants of health that impacted care today? How? (Homelessness, low income, unemployed, alcoholism, drug addiction, transportati on, low edu. Level, literacy, decrease access to med. care, [facility], rehab)? @ -none Was there de-escalation of care discussed even if they declined (Discuss DNR or withdrawal of care, Hospice)? DNR status @ -no What co-morbidities impacted this encounter? (DM, HTN, Smoking, COPD, CAD, Cancer, CVA, ARF, Chemo, Hep., AIDS, mental health diagnosis, sleep apnea, morbid obesity)? @ -none Was patient admitted / discharged? Hospital course, mention meds given and route, prescriptions, significant lab abnormalities, going to OR and other pertinent info. @ - 67 female to the emergency department for evaluation of chest pain today. Patient Dese for evaluation dizziness lightheadedness not feeling well. Patient symptoms are improved throughout ER stay as well as patient feels like she can be discharged home Discharge Undiagnosed new problem with uncertain prognosis? @ -no Drug Therapy requiring intensive monitoring for toxicity (Heparin, Nitro, Insulin, Cardizem)? @ -no Were any procedures done? @ -no Diagnosis/symptom? @ - Acute, or Chronic, or Acute on Chronic? @ -Acute Uncomplicated (without systemic symptoms) or Complicated (systemic symptoms)? @ -Complicated Side effects of treatment? @ -no Exacerbation, Progression, or Severe Exacerbation? @ -exacerbation Poses a threat to life or bodily function? How? (Chest pain, USA, VT, pneumonia, PE, COPD, DKA, ARF, appy, cholecystitis, CVA, Diverticulitis, Homicidal, Suicidal, threat to staff... and all critical care pts) @ -yes extrema vagus hypertension (Odell Jane) Reevaluation #5: Differential Dizziness: Benign paroxysmal positional Vertigo, Menieres disease, otitis media, acoustic neuroma, vertebrobasilar insufficiency, cerebellar stroke, encephalitis, hypovolemic, arrhythmia, coronary artery syndrome, anemia, this is not meant to be an all-inclusive list (Odell Jane) EKG Findings - EKG Comments: EKG Findings:: EKG is sinus 77 [place] 137 QRS 142 QTC 397 - EKG Results: EKG: interpreted by ERMD <Odell Jane - Last Filed: 08/04/23 19:57> Medical Decision Making <Julianna Hammond - Last Filed: 07/24/23 23:14> - Lab Data Result diagrams: 07/24/23 23:44 07/24/23 23:44 - EKG Data -: EKG Interpreted by Me - Radiology Data Radiology results: report reviewed (Chest x-rays negative for acute disease), image reviewed <Odell Jane - Last Filed: 08/04/23 19:57> - Medical Decision Making I performed the quick note portion of the exam. Electronically signed by Julianna Hammond PA-C (Julianna Hammond) 67 female to the emergency department for evaluation of chest pain today. Patient Dese for evaluation dizziness lightheadedness not feeling well. Patient symptoms are improved throughout ER stay as well as patient feels like she can be discharged home (Odell Jane) - Lab Data Lab Results 07/24/23 07/24/23 07/24/23 Range/Units 23:44 23:44 23:44 WBC 8.1 (3.8-10.6) k/uL RBC 4.17 (3.80-5.40) m/uL Hgb 13.3 (11.4-16.0) gm/dL Hct 38.1 (34.0-46.0) % MCV 91.4 (80.0-100.0) fL MCH 31.9 (25.0-35.0) pg MCHC 34.9 (31.0-37.0) g/dL RDW 11.9 (11.5-15.5) % Plt Count 364 (150-450) k/uL MPV 7.2 D-Dimer (<0.60) mg/L FEU Sodium 133 L (137-145) mmol/L Potassium 4.1 (3.5-5.1) mmol/L Chloride 97 L (98-107) mmol/L Carbon Dioxide 26 (22-30) mmol/L Anion Gap 10 mmol/L BUN 16 (7-17) mg/dL Creatinine 0.70 (0.52-1.04) mg/dL Est GFR (CKD-EPI)AfAm >90 (>60 ml/min/1.73 sqM) Est GFR (CKD-EPI)NonAf 89 (>60 ml/min/1.73 sqM) Glucose 113 H (74-99) mg/dL Calcium 9.6 (8.4-10.2) mg/dL Total Bilirubin 0.6 (0.2-1.3) mg/dL AST 28 (14-36) U/L ALT 31 (4-34) U/L Alkaline Phosphatase 94 (38-126) U/L Troponin I <0.012 (0.000-0.034) ng/mL Total Protein 7.9 (6.3-8.2) g/dL Albumin 4.7 (3.5-5.0) g/dL Influenza Type A (PCR) (Not Detectd) Influenza Type B (PCR) (Not Detectd) RSV (PCR) (Not Detectd) SARS-CoV-2 (PCR) (Not Detectd) 07/24/23 07/25/23 Range/Units 23:44 00:51 WBC (3.8-10.6) k/uL RBC (3.80-5.40) m/uL Hgb (11.4-16.0) gm/dL Hct (34.0-46.0) % MCV (80.0-100.0) fL MCH (25.0-35.0) pg MCHC (31.0-37.0) g/dL RDW (11.5-15.5) % Plt Count (150-450) k/uL MPV D-Dimer 0.36 (<0.60) mg/L FEU Sodium (137-145) mmol/L Potassium (3.5-5.1) mmol/L Chloride (98-107) mmol/L Carbon Dioxide (22-30) mmol/L Anion Gap mmol/L BUN (7-17) mg/dL Creatinine (0.52-1.04) mg/dL Est GFR (CKD-EPI)AfAm (>60 ml/min/1.73 sqM) Est GFR (CKD-EPI)NonAf (>60 ml/min/1.73 sqM) Glucose (74-99) mg/dL Calcium (8.4-10.2) mg/dL Total Bilirubin (0.2-1.3) mg/dL AST (14-36) U/L ALT (4-34) U/L Alkaline Phosphatase (38-126) U/L Troponin I (0.000-0.034) ng/mL Total Protein (6.3-8.2) g/dL Albumin (3.5-5.0) g/dL Influenza Type A (PCR) Not Detected (Not Detectd) Influenza Type B (PCR) Not Detected (Not Detectd) RSV (PCR) Not Detected (Not Detectd) SARS-CoV-2 (PCR) Not Detected (Not Detectd) Disposition <Julianna Hammond - Last Filed: 07/24/23 23:14> Is patient prescribed a controlled substance at d/c from ED?: No Time of Disposition: 02:00 <Odell Jane - Last Filed: 08/04/23 19:57> Clinical Impression: Dizziness Disposition: HOME SELF-CARE Condition: Fair Instructions (If sedation given, give patient instructions): Dizziness (ED) Referrals: Deepa Rachel MD [Primary Care Provider] - 1-2 days
[2023-07-25 00:01] LABS: HCT 38.1 % (34.0-46.0); HGB 13.3 gm/dL (11.4-16.0); MCH 31.9 pg (25.0-35.0); MCHC 34.9 g/dL (31.0-37.0); MCV 91.4 fL (80.0-100.0); Mean Platelet Volume 7.2; Platelet Count 364 k/uL (150-450); RBC 4.17 m/uL (3.80-5.40); RDW 11.9 % (11.5-15.5); WBC 8.1 k/uL (3.8-10.6)
[2023-07-25 00:09] LABS: ALT 31 U/L (4-34); AST 28 U/L (14-36); African American GFR (CKD) >90 (>60 ml/min/1.73 sqM); Albumin 4.7 g/dL (3.5-5.0); Alkaline Phosphatase 94 U/L (38-126); Anion Gap 10 mmol/L; Blood Urea Nitrogen 16 mg/dL (7-17); Calcium 9.6 mg/dL (8.4-10.2); Carbon Dioxide 26 mmol/L (22-30); Chloride 97 mmol/L (98-107); Glucose 113 mg/dL (74-99); Non-African American GFR(CKD) 89 (>60 ml/min/1.73 sqM); Potassium 4.1 mmol/L (3.5-5.1); Sodium 133 mmol/L (137-145); Total Bilirubin 0.6 mg/dL (0.2-1.3); Total Protein 7.9 g/dL (6.3-8.2)
--- NOTE | 2023-07-25 01:07 | XR ---
EXAM: XR Chest, 2 Views CLINICAL HISTORY: ITS.REASON XR Reason: angina TECHNIQUE: Frontal and lateral views of the chest. COMPARISON: No relevant prior studies available. FINDINGS: Lungs: No consolidation or mass. Pleural space: No effusion. Heart: No cardiomegaly. Bones/joints: No acute findings. IMPRESSION: No acute cardiopulmonary process.
[2023-07-25 02:11] VITALS: BP 160/78; PULSE 87
== END 2023-07-25 02:52 | disposition home or self-care (01) ==
LOC: EC 22:26
DX: R42 Dizziness and giddiness (principal); I10 Essential (primary) hypertension; J45.909 Unspecified asthma, uncomplicated; K21.9 Gastro-esophageal reflux disease without esophagitis; M19.90 Unspecified osteoarthritis, unspecified site; E07.9 Disorder of thyroid, unspecified; Z79.890 Hormone replacement therapy; Z79.899 Other long term (current) drug therapy; Z90.49 Acquired absence of other specified parts of digestive tract; Z20.822 Contact with and (suspected) exposure to COVID-19
CPT/HCPCS: 36415; 71046; 80053; 84484; 85027; 85379; 87636; 93005; 99284

== ENCOUNTER → 2023-08-16 | Outpatient (CLI) | payer MEDICARE, OTHER ==
[2023-08-16 18:51] LABS: BUN/Creat Ratio 19.43 Ratio (12.00-20.00); Blood Urea Nitrogen 13.6 mg/dL (9.0-27.0); Calcium 9.3 mg/dL (8.7-10.3); Carbon Dioxide 24.8 mmol/L (21.6-31.8); Chloride 93 mmol/L (96-109); Glucose 105 mg/dL (70-110); Potassium 3.4 mmol/L (3.5-5.5); Sodium 128 mmol/L (135-145)
== END | disposition home or self-care (01) ==
LOC: LABWHC1 13:00
PROVIDERS: ATTEND Internal Medicine Interventional Cardiology
DX: I10 Essential (primary) hypertension (principal)
CPT/HCPCS: 36415; 80048

== ENCOUNTER → 2023-09-27 | Outpatient (CLI) | payer BC ==
--- NOTE | 2023-09-27 11:15 | MM ---
Reason for Exam: Clinical finding. Last screening mammogram was performed 12 month(s) ago. Indicated Problems: Pain of the left side (Focal) for 6 Month(s) : axilla. Patient History: Menarche at age 11. First Full-Term at age 22. Left ovary removed at age 27. Right ovary removed at age 27. Hysterectomy at age 27. Postmenopausal. Patient has history of breast feeding. Estrogen, starting at age 32 for 18 years. 2001, Benign Excisional Biopsy on the left side. Mother had breast cancer, age 55. Daughter had breast cancer under age 50. Risk Values: Beatriz 5 year model risk: 8.1%. NCI Lifetime model risk: 24.0%. Prior Study Comparison: 05/26/2018 Bilateral Screening Mammogram, [facility]. 08/24/2019 Bilateral Screening Mammogram, [facility]. 08/24/2020 Bilateral Diagnostic Mammogram, [facility]. 09/05/2021 Bilateral Screening Mammogram, [facility]. 10/02/2022 Bilateral MG 3D screening mammo w/cad, [facility]. 06/27/2023 Left MG 3D diag mammo w/cad LT, [facility]. Tissue Density: The breasts are almost entirely fatty. Findings: Analyzed By CAD. No discrete mass or distortion. As clinically with regards to. Overall Assessment: Negative, BI-RAD 1 Management: Screening Mammogram of both breasts in 1 year. . Results were given to the patient verbally at the time of exam. Patient should continue monthly self-breast exams. A clinical breast exam by your physician is recommended on an annual basis. This exam should not preclude additional follow-up of suspicious palpable abnormalities. Note on Beatriz scores and lifetime risk: 1. A Beatriz score greater than 3% is considered moderate risk. If this is the case, consider specialist referral to assess eligibility for a risk reducing agent. 2. If overall lifetime risk for the development of breast cancer is 20% or higher, the patient may qualify for future screening with alternating mammogram and breast MRI. Electronically signed and approved by: Siva Kelley M.D. Radiologis
== END | disposition home or self-care (01) ==
LOC: RADMAMWWP 10:41
PROVIDERS: ATTEND Family Medicine
DX: R92.313 Mammographic fatty tissue density, bilateral breasts (principal); N64.4 Mastodynia; Z78.0 Asymptomatic menopausal state; Z80.3 Family history of malignant neoplasm of breast
CPT/HCPCS: 77062; 77066

== ENCOUNTER → 2023-10-07 | Outpatient (CLI) | payer BC, MEDICARE ==
--- NOTE | 2023-10-07 14:04 | CT ---
EXAMINATION TYPE: CT brain wo con CT DLP: 1029.9 mGycm, Automated exposure control for dose reduction was used. DATE OF EXAM: 10/07/2023 12:06 PM COMPARISON: No comparison CT exams within the last 5 years.. CLINICAL INDICATION:Female, 67 years old with history of M54.2 CERVICALGIA,M47.812,M50.323, cervicalg ia. History of fall 3 weeks ago. Trauma. Initial encounter. TECHNIQUE: Brain: Axial CT images of the brain were obtained with coronal and sagittal reformats created and rev iewed. Contrast used: None. Oral contrast used: None. FINDINGS: Brain: Extra-axial spaces: No abnormal extra-axial fluid collections. Ventricular system: Within normal limits. Cerebral parenchyma: No acute intraparenchymal hemorrhage or mass effect. The tamayo-white junction i s well differentiated. Cerebellum: Unremarkable. Mass effect: No evidence of midline shift. Intracranial vasculature: unremarkable Soft tissues: Normal. Calvarium/osseous structures: No depressed skull fracture. Paranasal sinuses and mastoid air cells: Mild scattered paranasal sinus disease. Visualized orbits: Orbital contents are intact. IMPRESSION: No acute intracranial process.
== END | disposition home or self-care (01) ==
LOC: RADCTMAIN 11:47
PROVIDERS: ATTEND Orthopaedic Surgery Orthopaedic Surgery of the Spine
DX: M50.123 Cervical disc disorder at C6-C7 level with radiculopathy (principal); M47.22 Other spondylosis with radiculopathy, cervical region; M25.78 Osteophyte, vertebrae; M79.12 Myalgia of auxiliary muscles, head and neck; M51.16 Intervertebral disc disorders with radiculopathy, lumbar region; M43.16 Spondylolisthesis, lumbar region; M43.12 Spondylolisthesis, cervical region; S16.1XXD Strain of muscle, fascia and tendon at neck level, subsequent encounter; R42 Dizziness and giddiness; R51.9 Headache, unspecified; W19.XXXD Unspecified fall, subsequent encounter; Z98.1 Arthrodesis status
CPT/HCPCS: 70450

== ENCOUNTER → 2023-10-17 | Outpatient (CLI) | payer MEDICARE ==
--- NOTE | 2023-10-17 10:44 | USB ---
Reason for Exam: Clinical finding. Patient History: Menarche at age 11. First Full-Term at age 22. Left ovary removed at age 27. Right ovary removed at age 27. Hysterectomy at age 27. Postmenopausal. Patient has history of breast feeding. Estrogen, starting at age 32 for 18 years. 2001, Benign Excisional Biopsy on the left side. Mother had breast cancer, age 55. Daughter had breast cancer under age 50. Risk Values: Beatriz 5 year model risk: 8.1%. NCI Lifetime model risk: 24.0%. Technique: Method: Whole Breast Handheld. Prior Study Comparison: 10/02/2022 Bilateral MG 3D screening mammo w/cad, [facility]. 06/27/2023 Left MG 3D diag mammo w/cad LT, [facility]. 09/27/2023 Bilateral MG 3D diag mammo w/cad SARAH, [facility]. Findings: The whole breast of the left breast, the axilla of the left breast and the retroareolar of the left breast were scanned. No solid or cystic masses are identified.. Overall Assessment: Benign, BI-RAD 2 Management: Screening Mammogram of both breasts in 1 year. A clinical breast exam by your physician is recommended on an annual basis and results should be correlated with mammographic findings. This exam should not preclude additional follow-up of suspicious palpable abnormalities. Results were given to the patient verbally at the time of exam. Electronically signed and approved by: Ponce Toscano D.O. Radiologis
== END | disposition home or self-care (01) ==
LOC: RADUSWWP 09:24
PROVIDERS: ATTEND Surgery
DX: N64.4 Mastodynia (principal); Z78.0 Asymptomatic menopausal state; Z80.3 Family history of malignant neoplasm of breast

== ENCOUNTER → 2024-07-07 | Outpatient (CLI) | payer MEDICARE ==
--- NOTE | 2024-07-07 10:11 | US ---
EXAMINATION TYPE: US renal artery duplex complet DATE OF EXAM: 07/07/2024 COMPARISON: NONE CLINICAL INDICATION: Female, 68 years old with history of I10 HTN; Patient not NPO TECHNIQUE: Grayscale, color Doppler and spectral Doppler imaging of the bilateral renal arteries and kidneys. FINDINGS: MEASUREMENTS: RENAL SIZE: Right Kidney: 10.3 x 4.6 x 5.3cm Left Kidney: 10.6 x 4.5 x 4.4cm Right Kidney: wnl Left Kidney: wnl Abd Aorta: wnl RESISTANCE INDEX Right: 0.72 Left: 0.67 RA/AO RATIO (< 3.5 ) Right: 1.7 Left: 1.5 RENAL ARTERY VELOCITY ( < 180 cm/s) Right: 146.9 Left: 133.2 IMPRESSION: No evidence for renal artery stenosis bilaterally. [facility], , 07/07/2024 10:09 AM
== END | disposition home or self-care (01) ==
LOC: RADUSWWP 08:18
PROVIDERS: ATTEND Internal Medicine Interventional Cardiology
DX: I10 Essential (primary) hypertension (principal)
CPT/HCPCS: 93975

== ENCOUNTER → 2024-09-28 | Outpatient (CLI) | payer MEDICARE ==
--- NOTE | 2024-09-29 10:11 | MM ---
Reason for Exam: Screening (asymptomatic). Last screening mammogram was performed 12 month(s) ago. Indicated Problems: Pain of the left side (Global) for 5 Month(s). Patient History: Menarche at age 11. First Full-Term at age 22. Left ovary removed at age 27. Right ovary removed at age 27. Hysterectomy at age 27. Postmenopausal. Patient has history of breast feeding. Estrogen, starting at age 32 for 18 years. 2001, Benign Excisional Biopsy on the left side. Mother had breast cancer, age 55. Daughter had breast cancer under age 50. Risk Values: Beatriz 5 year model risk: 8.2%. NCI Lifetime model risk: 23.1%. Prior Study Comparison: 10/02/2022 Bilateral MG 3D screening mammo w/cad, [facility]. 06/27/2023 Left MG 3D diag mammo w/cad LT, [facility]. 09/27/2023 Bilateral MG 3D diag mammo w/cad SARAH, [facility]. Tissue Density: The breasts are almost entirely fatty. Findings: Analyzed By CAD. There is no suspicious group of microcalcifications or new suspicious mass in either breast. Overall Assessment: Negative, BI-RAD 1 Management: Screening Mammogram of both breasts in 1 year. . Patient should continue monthly self-breast exams. A clinical breast exam by your physician is recommended on an annual basis. This exam should not preclude additional follow-up of suspicious palpable abnormalities. Note on Beatriz scores and lifetime risk: 1. A Beatriz score greater than 3% is considered moderate risk. If this is the case, consider specialist referral to assess eligibility for a risk reducing agent. 2. If overall lifetime risk for the development of breast cancer is 20% or higher, the patient may qualify for future screening with alternating mammogram and breast MRI. [facility], , 09/29/2024 10:07 AM. Electronically signed and approved by: Siva Kelley M.D. Radiologis
== END | disposition home or self-care (01) ==
LOC: RADMAMWWP 13:42
PROVIDERS: ATTEND Family Medicine
DX: Z12.31 Encounter for screening mammogram for malignant neoplasm of breast (principal); R92.313 Mammographic fatty tissue density, bilateral breasts; Z78.0 Asymptomatic menopausal state; Z80.3 Family history of malignant neoplasm of breast
CPT/HCPCS: 77063; 77067